=== PATIENT | male | born 1990 | race Hispanic/Latino ===

== ENCOUNTER 2016-07-09 00:17 | Inpatient (IN) | payer MEDICAID ==
[2016-07-09 00:21] VITALS: BMI 59.3
[2016-07-09] MEDS ORDERED: Sodium Chloride 0.9% 1,000 ML IV ONE (00:55)
--- NOTE | 2016-07-09 01:04 | ED PDOC ---
Arrival/HPI - General Chief Complaint: Palpitations Time Seen by Provider: 07/09/16 00:48 Historian: Patient - History of Present Illness Narrative History of Present Illness (Text): 07/09/16 00:56 Rosendo Carlton is a 25 year old male, with a history of hypertension, bronchial asthma, migraine, pneumonia, anxiety, and depression, presents to the emergency department complaining of chest tightness for past few hours. Patient states that he developed chills around 7:30 p.m. yesterday while playing video games and went to sleep after taking Aspirin. However, patient woke up with chest/epigastric pain and notes of 1 episode of non-bloody, non-bilious vomit. Notes that he felt weak and unable to get off the bed after waking up with the symptoms. Denies headache, dizziness, cough, SOB, diarrhea, urinary symptoms, or any other complaints at this time. PMD: Dr. Collier Time/Duration: 4-6 hours Symptom Onset: Gradual Symptom Course: Unchanged Severity Level: Mild Activities at Onset: Light Context: Home Past Medical History - Provider Review Nursing Documentation Reviewed: Yes - Past History Past History: No Previous - Infectious Disease Hx of Infectious Diseases: None - Tetanus Immunization Tetanus Immunization: Unknown - Cardiac Hx Hypertension: Yes - Pulmonary Hx Asthma: Yes Hx Pneumonia: Yes - Neurological Hx Migraine: Yes - HEENT Hx HEENT Disorder: Yes (budd neal syndrome) - Musculoskeletal/Rheumatological Hx Falls: No - Gastrointestinal Hx Gastrointestinal Disorders: Yes (frequently has gas pain after eating) - Psychiatric Hx Anxiety: Yes Hx Depression: Yes Hx Emotional Abuse: No Hx Physical Abuse: No Hx Substance Use: No - Past Surgical History Past Surgical History: No Previous - Surgical History Other/Comment: brain stem surgery - Anesthesia Hx Anesthesia: No Hx Anesthesia Reactions: No Hx Malignant Hyperthermia: No - Suicidal Assessment Feels Threatened In Home Enviroment: No Family/Social History - Physician Review Nursing Documentation Reviewed: Yes Family/Social History: No Known Family HX Smoking Status: Former Smoker Hx Alcohol Use: Yes Frequency of alcohol use: Socially Hx Substance Use: No Hx Substance Use Treatment: No Allergies/Home Meds Allergies/Adverse Reactions: Allergies No Known Allergies Allergy (Verified 07/28/14 01:43) Home Medications: Home Meds Medication Instructions Recorded Confirmed FLUoxetine [Prozac] 1 tab PO DAILY 07/09/16 07/09/16 Hydroxyzine HCl [Hydroxyzine HCl] 1 tab PO Q6H PRN 07/09/16 07/09/16 Losartan/Hydrochlorothiazide 1 tab PO DAILY 07/09/16 07/09/16 [Losartan-Hctz 100-25 mg Tab] Review of Systems - Physician Review All systems were reviewed & negative as marked: Yes - Review of Systems Constitutional: Fatigue. absent: Fevers Eyes: Normal Respiratory: Normal. absent: SOB, Cough, Sputum Cardiovascular: Chest Pain. absent: Palpitations Gastrointestinal: Nausea, Vomiting. absent: Diarrhea Genitourinary Male: Normal. absent: Dysuria Musculoskeletal: Normal Neurological: Normal. absent: Headache, Dizziness Psychiatric: Normal Physical Exam Vital Signs Reviewed: Yes Vital Signs Temp Pulse Resp BP Pulse Ox 07/09/16 05:00 102 H 18 112/53 L 97 07/09/16 04:40 100.6 F H 07/09/16 04:15 100.6 F H 117 H 23 124/60 95 07/09/16 03:24 121 H 15 95/66 L 99 07/09/16 02:57 101.4 F H 121 H 26 H 109/50 L 99 07/09/16 02:50 101.4 F H 07/09/16 02:17 98.4 F 07/09/16 00:34 99.0 F 115 H 22 143/79 99 Temperature: Afebrile Blood Pressure: Normal Pulse: Tachycardic Respiratory Rate: Normal Appearance: Positive for: Well-Appearing, Non-Toxic, Comfortable Pain Distress: None Mental Status: Positive for: Alert and Oriented X 3 - Systems Exam Head: Present: Atraumatic, Normocephalic Pupils: Present: PERRL Extroacular Muscles: Present: EOMI Conjunctiva: Present: Normal Respiratory/Chest: Present: Clear to Auscultation, Good Air Exchange. No: Respiratory Distress, Accessory Muscle Use Cardiovascular: Present: Normal S1, S2, Tachycardic. No: Murmurs Abdomen: Present: Normal Bowel Sounds. No: Tenderness, Distention, Peritoneal Signs Neurological: Present: GCS=15, CN II-XII Intact, Speech Normal, Motor Func Grossly Intact, Normal Sensory Function, Normal Cerebellar Funct Skin: Present: Warm, Dry, Normal Color. No: Rashes Psychiatric: Present: Alert, Oriented x 3, Normal Insight, Normal Concentration Medical Decision Making ED Course and Treatment: 07/09/16 01:06 Impression: A 25 year old male presenting to ed for chest tightness and 1 episode of vomiting prior to arrival. r/o Asthma Exacerbation r/o PNA r/o Viral syndrome Plan: -- EKG -- Labs -- CXR -- Tylenol -- IV fluids -- Blood culture -- Urine culture -- rapid flu -- Urinalysis Progress Notes: 07/09/16 01:08 EKG interpreted by me: Sinus Tachy @ 121 bpm. Normal axis. normal interval. No ST elevations. 07/09/16 02:26 Patient with is tachycardic with a lactate of 3.1. Code Sepsis initiated. 07/09/16 05:02 Repeat lactate is 3.2 with a temp of 100.6F Case discussed with lead medical technologist for admission to the hospital for sepsis. Patient will be evaluated by resident bedside. Paged . 07/09/16 06:25 Dr. Holm came to evaluate patient and would like to upgrade to remote telemetry since patient has a high lactate and tachy and morbidly obese. - Lab Interpretations Lab Results: 07/09/16 01:40 07/09/16 01:40 Lab Results 07/09/16 04:30: pO2 148 H, VBG pH 7.42, VBG pCO2 37.0 L, VBG HCO3 24.0, VBG Total CO2 25.1, VBG O2 Sat (Calc) 99.6 H, VBG Base Excess -0.2 L, VBG Potassium 3.1 L, Sodium 134.0, Chloride 104.0, Glucose 129 H, Lactate 3.2 H, FiO2 21.0, Venous Blood Potassium 3.1 L 07/09/16 02:22: Influenza Typ A,B (EIA) Negative for flu a/b 07/09/16 01:40: WBC 9.7, RBC 4.78, Hgb 14.2, Hct 41.8 L, MCV 87.4, MCH 29.7, MCHC 34.0, RDW 13.5, Plt Count 241, MPV 10.9, Gran % 90.7 H, Lymph % (Auto) 6.6 L, Waller % (Auto) 2.3, Eos % (Auto) 0.3 L, Baso % (Auto) 0.1, Gran # 8.77 H, Lymph # 0.6 L, Waller # 0.2, Eos # 0.0, Baso # 0.01, pO2 41, VBG pH 7.35, VBG pCO2 53.0, VBG HCO3 29.3 H, VBG Total CO2 30.9 H, VBG O2 Sat (Calc) 77.1 H, VBG Base Excess 2.5 H, VBG Potassium 3.8, Sodium 138.0, Chloride 102.0, Glucose 99, Lactate 3.1 H, FiO2 21.0, Potassium 4.0, Carbon Dioxide 31, Anion Gap 13, BUN 14 , Creatinine 0.9, Est GFR ( Amer) > 60, Est GFR (Non-Af Amer) > 60, Random Glucose 101, Calcium 9.4, Phosphorus 3.2, Magnesium 1.6 L, Total Bilirubin 1.2, AST 58, ALT 19, Alkaline Phosphatase 88, Total Protein 8.5 H, Albumin 4.4, Globulin 4.1, Albumin/Globulin Ratio 1.1, Lipase 39, Venous Blood Potassium 3.8 07/09/16 01:19: Urine Color Yellow, Urine Appearance Clear, Urine pH 6.0, Ur Specific Bush 1.015, Urine Protein Negative, Urine Glucose (UA) Negative, Urine Ketones Negative, Urine Blood Negative, Urine Nitrate Negative, Urine Bilirubin Negative, Urine Urobilinogen 0.2, Ur Leukocyte Esterase Negative I have reviewed the lab results: Yes - RAD Interpretation Radiology Orders: 07/09/16 00:55 CHEST PORTABLE [RAD] Stat Lead Medical Technologist: ED Physician - EKG Interpretation Interpreted by ED Physician: Yes Type: 12 lead EKG - Medication Orders Current Medication Orders: Discontinued Medications Acetaminophen (Tylenol 325mg Tab) 975 mg PO ONCE PRN PRN Reason: Fever >100.4 F Last Admin: 07/09/16 02:57 Dose: 975 MG MAR Pain/Vitals Document 07/09/16 02:57 SB (Rec: 07/09/16 02:57 SB [id number]) Vitals Temperature (97.6 F-99.6 F) 101.4 F Temperature Source Rectal Albuterol/Ipratropium (Duoneb 3 Mg/0.5 Mg (3 Ml) Ud) 3 ml IH Q15M KENY Stop: 07/09/16 02:46 Last Admin: 07/09/16 03:24 Dose: 3 ML Azithromycin (Zithromax) 500 mg PO STAT STA PRN Reason: Protocol Stop: 07/09/16 02:26 Last Admin: 07/09/16 02:40 Dose: 500 MG Sodium Chloride (Sodium Chloride 0.9%) 1,000 mls @ 2,000 mls/hr IV .Q30M ONE Stop: 07/09/16 01:24 Last Admin: 07/09/16 02:17 Dose: 2,000 MLS/HR eMAR Start Stop Document 07/09/16 02:17 SB (Rec: 07/09/16 02:17 SB [id number]) Intravenous Solution Start Date 07/09/16 Start Time 02:17 End Date 07/09/16 Ceftriaxone Sodium (Rocephin 1 Gram Ivpb) 100 mls @ 200 mls/hr IVPB STAT STA PRN Reason: Protocol Stop: 07/09/16 02:54 Last Admin: 07/09/16 02:40 Dose: 200 MLS/HR eMAR Start Stop Document 07/09/16 02:40 SB (Rec: 07/09/16 02:40 SB [id number]) Intravenous Solution Start Date 07/09/16 Start Time 02:40 End Date 07/09/16 Famotidine (Pepcid 20mg/50ml Premix) 50 mls @ 100 mls/hr IVPB STAT STA Stop: 07/09/16 03:49 Last Admin: 07/09/16 03:36 Dose: 100 MLS/HR eMAR Start Stop Document 07/09/16 03:36 GMD (Rec: 07/09/16 03:36 GMD [id number]) Intravenous Solution Start Date 07/09/16 Start Time 03:36 End Date 07/09/16 End time 04:06 Total Infusion Time 30 Sodium Chloride (Sodium Chloride 0.9%) 1,000 mls @ 999 mls/hr IV .Q1H1M STA Stop: 07/09/16 05:58 Last Admin: 07/09/16 05:03 Dose: 999 MLS/HR eMAR Start Stop Document 07/09/16 05:03 SB (Rec: 07/09/16 05:03 SB [id number]) Intravenous Solution Start Date 07/09/16 Start Time 05:03 End Date 07/09/16 Ibuprofen (Motrin Tab) 800 mg PO STAT STA Stop: 07/09/16 04:27 Last Admin: 07/09/16 04:40 Dose: 800 MG MAR Pain/Vitals Document 07/09/16 04:40 SB (Rec: 07/09/16 04:40 SB [id number]) Vitals Temperature (97.6 F-99.6 F) 100.6 F Temperature Source Rectal Prednisone (Prednisone Tab) 60 mg PO STAT STA Stop: 07/09/16 04:51 Last Admin: 07/09/16 05:04 Dose: 60 MG - Scribe Statement The provider has reviewed the documentation as recorded by the Yovani Hollingsworth Provider Attestation: All medical record entries made by the Yovani were at my direction and personally dictated by me. I have reviewed the chart and agree that the record accurately reflects my personal performance of the history, physical exam, medical decision making, and the department course for this patient. I have also personally directed, reviewed, and agree with the discharge instructions and disposition. Disposition/Present on Arrival - Present on Arrival Any Indicators Present on Arrival: No History of DVT/PE: No History of Uncontrolled Diabetes: No Urinary Catheter: No History of Decub. Ulcer: No History Surgical Site Infection Following: None - Disposition Have Diagnosis and Disposition been Completed?: Yes Diagnosis: Asthma attack, Dehydration, Lactic acidosis Disposition: HOSPITALIZED Disposition Time: 06:28 Patient Plan: Observation Condition: FAIR
[2016-07-09 02:00] LABS: ADD MANUAL DIFF? NO
[2016-07-09 02:11] LABS: VENOUS BLOOD GAS BASE EXCESS 2.5 mmol/L (0.0-2.0); VENOUS BLOOD PH 7.35 (7.32-7.43)
[2016-07-09] MEDS: Albuterol-Ipratrop 3 mg / 0.5 (3 ml) UD IH SCH ×3 (02:17→03:24)
[2016-07-09 02:20] LABS: BASO # 0.01 K/mm3 (0.0-2.0); BASO % 0.1 % (0.0-3.0); EOS % 0.3 % (1.5-5.0); GRAN # 8.77 (1.4-6.5); GRAN % 90.7 % (50.0-68.0); HEMATOCRIT 41.8 % (42.0-52.0); LYMPH # 0.6 (1.2-3.4); LYMPH % 6.6 % (22.0-35.0); MEAN CELL VOLUME 87.4 fL (80.0-105.0); MEAN CORPUSCULAR HEMOGLOBIN 29.7 pg (25.0-35.0); MEAN PLATELET VOLUME 10.9 fl (7.0-11.0); MONO # 0.2 (0.1-0.6); MONO % 2.3 % (1.0-6.0); PLATELET COUNT 241 10^3/uL (120.0-450.0); RED CELL DISTRIBUTION WIDTH 13.5 % (11.5-14.5); WHITE BLOOD COUNT 9.7 10^3/ul (4.5-11.0)
[2016-07-09 02:22] LABS: ALB/GLOB RATIO 1.1 (1.1-1.8); ALKALINE PHOSPHATASE 88 U/L (38-133); ALT/SGPT 19 U/L (7-56); AST/SGOT 58 U/L (15-59); BILIRUBIN,TOTAL 1.2 mg/dL (0.2-1.3); BLOOD UREA NITROGEN 14 mg/dL (7-21); CALCIUM 9.4 mg/dL (8.4-10.5); CARBON DIOXIDE 31 mmol/L (21-33); CHLORIDE 96 mmol/L (98-107); GFR AFRICAN-AMERICAN > 60; GLUCOSE,RANDOM 101 mg/dL (70-110); LIPASE 39 U/L (23-300); MAGNESIUM 1.6 mg/dL (1.7-2.2); PHOSPHOROUS 3.2 mg/dL (2.5-4.5); SODIUM 136 mmol/L (132-148); TOTAL PROTEIN 8.5 g/dL (5.8-8.3)
[2016-07-09] MEDS ORDERED: cefTRIAXone 1 gm 100 ML IVPB STA (02:25)
[2016-07-09] MEDS ORDERED: Famotidine 20mg/50ml 50 ML IVPB STA (03:20)
[2016-07-09 04:51] LABS: VENOUS BLOOD GAS BASE EXCESS -0.2 mmol/L (0.0-2.0); VENOUS BLOOD PH 7.42 (7.32-7.43)
[2016-07-09] MEDS ORDERED: Sodium Chloride 0.9% 1,000 ML IV STA (04:58)
[2016-07-09 04:59] LABS: URINE BILIRUBIN NEGATIVE (NEGATIVE); URINE BLOOD NEGATIVE (NEGATIVE); URINE GLUCOSE (UA) NEGATIVE (NEGATIVE); URINE KETONE NEGATIVE (NEGATIVE); URINE LEUKOCYTE ESTERASE NEGATIVE Leu/uL (NEGATIVE); URINE PROTEIN NEGATIVE mg/dL (<30 mg/dL); URINE UROBILINOGEN 0.2 E.U./dL (<1 E.U./dL)
[2016-07-09 05:03] LABS: URINE APPEARANCE CLEAR (CLEAR); URINE COLOR YELLOW (YELLOW)
[2016-07-09 06:42] LABS: VENOUS BLOOD GAS BASE EXCESS 0.3 mmol/L (0.0-2.0); VENOUS BLOOD PH 7.42 (7.32-7.43)
--- NOTE | 2016-07-09 07:38 | CP.PCM.HP ---
History of Present Illness - History of Present Illness History of Present Illness: CC: Palpitations, shortness of breath, dizziness HPI: This is a 25 yo M with PMH of Chiari malformation, Spina Bifida, Hypertension, Asthma, Anxiety, and Depression who presents with acute onset palpitations and shortness of breath that awoke him in the AM. Per patient, he began to experience some chills overnight, so he took some Advil and went to sleep. He was abruptly awoken with a sensation of his heart pounding through his chest rapidly, and he became short of breath and dizzy. He also complains of weakness at the time, as he had trouble getting up from a lying position to get to his phone, and states that walking to his phone he felt very unsteady on his feet and felt pre-syncopal. Denies chest pain, focal weakness, vision changes, diarrhea, constipation, lower extremity swelling/erythema/tenderness, syncope, or falls. Admits to one episode of emesis (non-bloody, non-bilious) after arrival to ED. PMH: As above PSH: Chiari malformation surgery (age 7), x2 Spina bifida repair surgeries (1995 , 1996) SHx: Former tobacco user (quit > 1 yr ago, 1 ppd x8 years), Social EtOH, denies illicits/IVDA FHx: Heart disease (cousin) PMD: Dr. Collier Present on Admission - Present on Admission Any Indicators Present on Admission: No History of DVT/PE: No History of Uncontrolled Diabetes: No Review of Systems - Constitutional Constitutional: Chills (self-limited episode ), Malaise, Weakness - EENT Eyes: absent: Blurred Vision, Change in Vision, Spots in Vision, Loss of Vision Ears: Dizziness Nose/Mouth/Throat: absent: Dysphagia, Sore Throat, Neck Pain - Cardiovascular Cardiovascular: Dyspnea, Palpitations. absent: Chest Pain, Pain Radiating to Arm/Neck/Jaw, Syncope Additional comments: near-syncope - Respiratory Respiratory: Cough (dry cough, non-productive), Dyspnea. absent: Hemoptysis, Pain on Inspiration - Gastrointestinal Gastrointestinal: Vomiting (1 episode on arrival to ED, non-bloody non-bilious) . absent: Abdominal Pain, Constipation, Diarrhea, Nausea - Genitourinary Genitourinary: absent: Difficulty Urinating, Dysuria, Flank Pain, Hematuria - Musculoskeletal Musculoskeletal: Back Pain (chronic, unchanged), Muscle Weakness. absent: Numbness - Integumentary Integumentary: absent: Pruritus, Rash - Neurological Neurological: Dizziness, Weakness. absent: Numbness, Focal Weakness, Loss of Vision, Syncope, Vertigo, Other Visual Disturbances Additional comments: near-syncope - Psychiatric Psychiatric: Anxiety, Depression - Endocrine Endocrine: Palpitations. absent: Fatigue Past Patient History - Infectious Disease Hx of Infectious Diseases: None - Tetanus Immunizations Tetanus Immunization: Unknown - Past Social History Smoking Status: Former Smoker - CARDIAC Hx Hypertension: Yes - PULMONARY Hx Asthma: Yes Hx Pneumonia: Yes - NEUROLOGICAL Hx Migraine: Yes - HEENT Hx HEENT Problems: Yes (budd neal syndrome) - MUSCULOSKELETAL/RHEUMATOLOGICAL Hx Falls: No - GASTROINTESTINAL Hx Gastrointestinal Disorders: Yes (frequently has gas pain after eating) - PSYCHIATRIC Hx Anxiety: Yes Hx Depression: Yes Hx Emotional Abuse: No Hx Physical Abuse: No Hx Substance Use: No - SURGICAL HISTORY Other/Comment: brain stem surgery - ANESTHESIA Hx Anesthesia: No Hx Anesthesia Reactions: No Hx Malignant Hyperthermia: No Meds Allergies/Adverse Reactions: Allergies Allergy/AdvReac Type Severity Reaction Status Date / Time No Known Allergies Allergy Verified 07/28/14 01:43 Physical Exam - Constitutional Appears: Well, Non-toxic, No Acute Distress Additional comments: Obese - Head Exam Head Exam: ATRAUMATIC, NORMAL INSPECTION, NORMOCEPHALIC - Eye Exam Eye Exam: EOMI, Normal appearance. absent: Conjunctival injection, Scleral icterus Pupil Exam: absent: Irregular, Unequal - ENT Exam ENT Exam: Mucous Membranes Moist - Neck Exam Neck exam: Negative for: Tenderness - Respiratory Exam Respiratory Exam: Clear to Auscultation Bilateral, NORMAL BREATHING PATTERN. absent: Accessory Muscle Use, Chest Wall Tenderness, Decreased Breath Sounds, Rales, Rhonchi, Wheezes - Cardiovascular Exam Cardiovascular Exam: Tachycardia, REGULAR RHYTHM, +S1, +S2. absent: Bradycardia , Irregular Rhythm, RRR, +S4 Additional comments: rapid rate regular rhythm - GI/Abdominal Exam GI & Abdominal Exam: Normal Bowel Sounds, Soft. absent: Diminished Bowel Sounds , Distended, Firm, Hyperactive Bowel Sounds, Hypoactive Bowel Sounds, Rigid, Tenderness Additional comments: obese, not distended - Extremities Exam Extremities exam: Positive for: normal capillary refill, pedal edema (trace pitting edema bilaterally), pedal pulses present (+1 dorsalis pedis bilaterally) . Negative for: calf tenderness, joint swelling - Back Exam Back exam: absent: CVA tenderness (L), CVA tenderness (R), rash noted, tenderness - Neurological Exam Neurological exam: Alert, Oriented x3 - Psychiatric Exam Psychiatric exam: Normal Affect, Normal Mood - Skin Skin Exam: Dry, Intact, Normal Color, Warm Results - Vital Signs Recent Vital Signs: Last Vital Signs Temp 98.0 F 07/09/16 06:10 Pulse 99 H 07/09/16 06:10 Resp 18 07/09/16 06:10 BP 124/72 07/09/16 06:10 Pulse Ox 97 07/09/16 06:10 - Labs Result Diagrams: 07/09/16 01:40 07/09/16 01:40 Assessment & Plan - Assessment and Plan (Free Text) Assessment: This is a 25 yo M with PMH of Chiari malformation, Spina Bifida, Hypertension, Asthma, Anxiety, and Depression who presents with acute onset palpitations and shortness of breath that awoke him in the AM. He is being treated for possible infectious process vs possible PE. Plan: 1) Palpitations with shortness of breath -Infectious process (URI vs pneumonia) vs 2/2 anxiety vs PE vs vasovagal vs MADELEINE vs asthma attack -No leukocytosis, but tachycardic to 120's, fever up to 100.6F, and suspected infectious process, so meets Sepsis criteria -received Ceftriaxone, Zithromax, Prednisone, and Duoneb tx in ED -UA unremarkable -LE duplex ordered to rule out DVT; habitus makes patient not amenable to CTA to rule out PE -Lactate 3.2 on admission, 3.3 on repeat VBG -Blood cultures ordered, Procal ordered -CXR obtained, suboptimal due to patient's habitus, but no felisha infiltrate notable -EKG sinus tachy at 121, otherwise normal -Elevated serum bicarb, and bull neck with morbid obesity suggestive of possible MADELEINE, patient already scheduled for outpt sleep study -Ceftriaxone and Doxycycline ordered 2) Hypomagnesia -Mag of 1.6 on admit, will replete Dispo: Remote Telemetry obs for possible infectious process vs PE, pending LE duplex and cultures FEN: heart-healthy diet, NS 100cc/hr Access: Peripheral IV Consults: N/A Ppx: Protonix for GI, SCDs for DVT Patient seen, reviewed, and discussed with attending, Dr. Holm. - Date & Time Date: 07/09/16 Time: 08:14 Decision To Admit - Pt Status Changed To: Hospital Disposition Of: Observation - . Bed Request Type: Remote Telemetry
[2016-07-09] MEDS ORDERED: Magnesium Sulfate 2 GM in Sodium Chloride 0.9% 100 ML IVPB ONE (08:11)
--- NOTE | 2016-07-09 09:06 | RAD ---
HISTORY: Sepsis Patient COMPARISON: 09/04/2011 FINDINGS: LUNGS: No active pulmonary disease. PLEURA: No significant pleural effusion identified, no pneumothorax apparent. CARDIOVASCULAR: Normal. OSSEOUS STRUCTURES: No significant abnormalities. VISUALIZED UPPER ABDOMEN: Normal. OTHER FINDINGS: None. IMPRESSION: No active disease.
[2016-07-09] MEDS: Sodium Chloride 0.9% 1,000 ML IV SCH ×2 (10:15→20:00)
--- NOTE | 2016-07-09 10:32 | CARD ---
APPROVED REPORT EKG Measurement Heart [id number] <Conclusion> Sinus tachycardia NSSTW changes
[2016-07-09 11:08] LABS: VENOUS BLOOD GAS BASE EXCESS 0.8 mmol/L (0.0-2.0); VENOUS BLOOD PH 7.37 (7.32-7.43)
[2016-07-09] MEDS ORDERED: Albuterol-Ipratrop 3 mg / 0.5 (3 ml) UD IH PRN (11:47)
--- NOTE | 2016-07-09 13:25 | CP.PCM.CON ---
History of Present Illness - History of Present Illness History of Present Illness: 25 year old male with PMH of morbid obesity with BMI 59, Chiari malformation in the spine with spina bifida S/P surgeries at 5-7 years of age of the patient, HTN, asthma, anxiety disorder, history of depression came in to the ED after he suddenly developed subjective fever and chills about 6 hours prior to ED presentation. At that time he was also having teeth-chattering. He had generalized weakness as well but no muscles or joint aches. He was also experiencing a twisting sensation in his abdomen (epigastric and left side of the abdomen) which was associated with nausea and one episode of non-bloody vomiting in the ED. He denies sore throat, no rhinorrhea, no headache, no dizziness or lightheadedness. He fell asleep on his couch and when he woke up he had chest palpitations and he still felt the "twisting sensation" in his abdomen, which made him go to the ER. He denies eating anything out of the ordinary, no diarrhea but he did complain of some blood in his stool since 3 days ago, no dysuria, no hematuria. He was recently diagnosed in a clinic with a sinus infection and was prescribed unrecalled antibiotics about 10 days ago which he took for about 5 days. In the ED, his lactate was elevated and had a Tmax of 101.4 F. Infectious diseases consult is requested to further evaluate and manage. Social history: as per patient, he used to smoke a pack of cigarettes per day for about 8-9 years but quit a year ago, occasionally takes alcoholic beverages , denies illicit drug use; lives at home with his family, no recent travel outside of [place] in the past 3 months, no known ill contacts Review of Systems - Review of Systems All systems: reviewed and no additional remarkable complaints except (as per HPI ) Past Patient History - Infectious Disease Hx of Infectious Diseases: None - Tetanus Immunizations Tetanus Immunization: Unknown - Past Social History Smoking Status: Former Smoker - CARDIAC Hx Hypertension: Yes - PULMONARY Hx Asthma: Yes Hx Pneumonia: Yes - NEUROLOGICAL Hx Migraine: Yes - HEENT Hx HEENT Problems: Yes (budd neal syndrome) - MUSCULOSKELETAL/RHEUMATOLOGICAL Hx Falls: No - GASTROINTESTINAL Hx Gastrointestinal Disorders: Yes (frequently has gas pain after eating) - PSYCHIATRIC Hx Anxiety: Yes Hx Depression: Yes Hx Emotional Abuse: No Hx Physical Abuse: No - SURGICAL HISTORY Other/Comment: brain stem surgery - ANESTHESIA Hx Anesthesia: No Hx Anesthesia Reactions: No Hx Malignant Hyperthermia: No Meds Allergies/Adverse Reactions: Allergies Allergy/AdvReac Type Severity Reaction Status Date / Time No Known Allergies Allergy Verified 07/28/14 01:43 - Medications Medications: Current Medications Doxycycline Hyclate (Doryx) 100 mg PO Q12 KENY PRN Reason: Protocol Ceftriaxone Sodium (Rocephin 2 Gm Ivpb) 100 mls @ 100 mls/hr IVPB DAILY KENY PRN Reason: Protocol Magnesium Sulfate 2 gm/ Sodium (Chloride) 104 mls @ 102 mls/hr IVPB ONCE ONE Stop: 07/09/16 09:12 Sodium Chloride (Sodium Chloride 0.9%) 1,000 mls @ 100 mls/hr IV .Q10H KENY Pantoprazole Sodium (Protonix Ec Tab) 40 mg PO 0730,1630 [facility] Physical Exam - Constitutional Appears: Non-toxic, No Acute Distress - Head Exam Head Exam: NORMAL INSPECTION - ENT Exam ENT Exam: Mucous Membranes Moist, Normal Oropharynx - Neck Exam Neck exam: Negative for: Lymphadenopathy, Meningismus - Respiratory Exam Respiratory Exam: Decreased Breath Sounds. absent: Rales, Rhonchi - Cardiovascular Exam Cardiovascular Exam: +S1, +S2 - GI/Abdominal Exam GI & Abdominal Exam: Soft, Tenderness (mild, left side and epigastric area without guarding, no rebound tenderness, no rigidity) Results - Vital Signs Recent Vital Signs: Last Vital Signs Temp 97.7 F 07/09/16 08:39 Pulse 99 H 07/09/16 08:39 Resp 18 07/09/16 08:39 BP 124/73 07/09/16 08:39 Pulse Ox 99 07/09/16 08:15 - Labs Result Diagrams: 07/09/16 01:40 07/09/16 01:40 Labs: Laboratory Results - last 24 hr 07/09/16 06:12 pO2 159 H VBG pH 7.42 VBG pCO2 38.0 L VBG HCO3 24.6 VBG Total CO2 25.8 VBG O2 Sat (Calc) 99.9 H VBG Base Excess 0.3 VBG Potassium 3.3 L Sodium 135.0 Chloride 104.0 Glucose 117 H Lactate 2.8 H FiO2 21.0 Venous Blood Potassium 3.3 L Assessment & Plan - Assessment and Plan (Free Text) Plan: Assessment Systemic Inflammatory Response Syndrome (fever and tachycardia), R/O sepsis from intra-abdominal infection R/O colitis R/O volvulus morbid obesity with BMI 59 Chiari malformation in the spine with spina bifida S/P surgeries at 5-7 years of age of the patient HTN asthma anxiety disorder history of depression Plan Started patient on Zosyn (since the patient was recently on antibiotics) pending blood and urine cx; PCT is elevated; rapid Influenza is negative awaiting CXR PA-L (one done in the ED was only portable and difficult to interpret, although the patient only has dry intermittent cough) - added Doxycycline Patient is unable to fit into the CT scan machine - will do ultrasound of abdomen and abdominal xray and will follow up results Will follow clinically
--- NOTE | 2016-07-09 15:12 | US ---
HISTORY: rule out volvulus, R/O ischemic colitis COMPARISON: None. TECHNIQUE: Grayscale imaging was performed. Examination is limited due to patient body habitus. FINDINGS: LIVER: Measures 21.4 cm. There is diffuse increased echogenicity of the liver parenchyma. No mass. No intrahepatic bile duct dilatation. GALLBLADDER: Unremarkable. No gallstones. COMMON BILE DUCT: Measures 6 mm. No stones. No dilatation. PANCREAS: Unremarkable as visualized. No mass. No ductal dilatation. RIGHT KIDNEY: Measures 13.5cm. Normal echogenicity. No calculus, mass, or hydronephrosis. LEFT KIDNEY: Measures 14.4cm. Normal echogenicity. No calculus, mass, or hydronephrosis. SPLEEN: There is borderline splenomegaly. No mass. AORTA: No aneurysmal dilatation. IVC: Unremarkable. OTHER FINDINGS: None. IMPRESSION: Limited examination due to patient body habitus. Moderate hepatomegaly and mild splenomegaly. Diffuse increased echogenicity in the liver may reflect hepatic steatosis however parenchymal infectious/ inflammatory etiologies cannot be entirely excluded. Clinical and laboratory correlation is advised.
--- NOTE | 2016-07-09 15:42 | RAD ---
HISTORY: ABDOMINAL PAIN COMPARISON: No prior. FINDINGS: BOWEL: Normal. No obstruction. No free air. BONES: Normal. OTHER FINDINGS: None. IMPRESSION: No active disease.
--- NOTE | 2016-07-09 16:37 | US ---
HISTORY: Leg pain and swelling. Evaluate for DVT PHYSICIAN(S): Giovanni Yu MD. TECHNIQUE: Duplex sonography and color-flow Doppler with graded compression were used to evaluate the deep venous systems of both lower extremities. FINDINGS: The visualized deep venous systems of both lower extremities are sonographically normal and compressible. Normal wave forms and augmentation are seen. There is no sonographic evidence for deep venous thrombosis in the visualized segments of both lower extremities. IMPRESSION: No sonographic evidence for deep venous thrombosis in the visualized segments of both lower extremities.
[2016-07-09] MEDS: Pantoprazole 40 mg EC Tab PO SCH (17:28)
[2016-07-09] MEDS: Piperacillin/Tazobact 3.375 gm 100 ML IVPB SCH ×2 (17:29)
--- NOTE | 2016-07-09 18:52 | CP.PCM.CON ---
History of Present Illness - History of Present Illness History of Present Illness: 25 y/o M w/ acute SOB, palpitations, chills and chest pain yesterday while at home. S/P nebulizers, abx and oxygen patient feeling better. upon further questioning the patient has been dealing with panic attacks and asthma and last night felt nothing like that. Also he mentions that since his spina bifida surgery many years ago , he noticed 4 months ago that he had a draining sinus at his lower back with PUS. It seems that he has presented with signs of SIRS and sepsis. Review of Systems - Constitutional Constitutional: Fatigue, Fever, Malaise, Night Sweats, Weight Gain - EENT Eyes: As Per HPI Ears: As Per HPI Nose/Mouth/Throat: As Per HPI - Cardiovascular Cardiovascular: Diaphoresis - Respiratory Respiratory: As Per HPI, Snoring - Gastrointestinal Gastrointestinal: Abdominal Pain, Bloating - Genitourinary Genitourinary: As Per HPI - Neurological Neurological: Behavioral Changes (lower ext pain, lower back pain ), Disequilibrium, Dizziness, Headaches, Syncope, Tingling Past Patient History - Infectious Disease Hx of Infectious Diseases: None - Tetanus Immunizations Tetanus Immunization: Unknown - Past Social History Smoking Status: Former Smoker - CARDIAC Hx Hypertension: Yes - PULMONARY Hx Asthma: Yes Hx Pneumonia: Yes - NEUROLOGICAL Hx Migraine: Yes - HEENT Hx HEENT Problems: Yes (budd neal syndrome) - MUSCULOSKELETAL/RHEUMATOLOGICAL Hx Falls: No - GASTROINTESTINAL Hx Gastrointestinal Disorders: Yes (frequently has gas pain after eating) - PSYCHIATRIC Hx Anxiety: Yes Hx Depression: Yes Hx Emotional Abuse: No Hx Physical Abuse: No - SURGICAL HISTORY Other/Comment: brain stem surgery - ANESTHESIA Hx Anesthesia: No Hx Anesthesia Reactions: No Hx Malignant Hyperthermia: No Meds Allergies/Adverse Reactions: Allergies Allergy/AdvReac Type Severity Reaction Status Date / Time No Known Allergies Allergy Verified 07/28/14 01:43 - Medications Medications: Current Medications Albuterol/Ipratropium (Duoneb 3 Mg/0.5 Mg (3 Ml) Ud) 3 ml IH Q2H PRN PRN Reason: Shortness of Breath Doxycycline Hyclate (Doryx) 100 mg PO Q12 [facility]ENY PRN Reason: Protocol Last Admin: 07/09/16 10:14 Dose: 100 mg Fluoxetine HCl (Prozac) 20 mg PO DAILY [facility] Hydrochlorothiazide (Hydrodiuril) 25 mg PO DAILY [facility] Hydroxyzine HCl (Atarax) 25 mg PO Q6H PRN PRN Reason: Psychosis Sodium Chloride (Sodium Chloride 0.9%) 1,000 mls @ 100 mls/hr IV .Q10H [facility] Last Admin: 07/09/16 10:15 Dose: 100 mls/hr Cefepime HCl (Maxipime 1gm) 100 mls @ 100 mls/hr IVPB Q8 [facility]ENY PRN Reason: Protocol Vancomycin HCl (Vancomycin 1gm) 250 mls @ 167 mls/hr IVPB Q12H [facility] PRN Reason: Protocol Losartan Potassium (Cozaar) 100 mg PO DAILY [facility] Pantoprazole Sodium (Protonix Ec Tab) 40 mg PO 0730,1630 [facility] Last Admin: 07/09/16 17:28 Dose: 40 mg Physical Exam - Eye Exam Eye Exam: EOMI, Normal appearance - ENT Exam ENT Exam: Mucous Membranes Moist, Normal Exam - Respiratory Exam Respiratory Exam: Clear to Auscultation Bilateral, NORMAL BREATHING PATTERN - Cardiovascular Exam Cardiovascular Exam: REGULAR RHYTHM - GI/Abdominal Exam GI & Abdominal Exam: Normal Bowel Sounds - Rectal Exam Rectal Exam: NORMAL INSPECTION - Back Exam Back exam: paraspinal tenderness (lower bacl draining sinus with PUS ) - Neurological Exam Neurological exam: Normal Gait, Oriented x3 - Psychiatric Exam Psychiatric exam: Normal Affect Results - Vital Signs Recent Vital Signs: Last Vital Signs Temp 97.7 F 07/09/16 08:39 Pulse 99 H 07/09/16 08:39 Resp 18 07/09/16 08:39 BP 124/73 07/09/16 08:39 Pulse Ox 99 07/09/16 08:15 - Labs Result Diagrams: 07/09/16 01:40 07/09/16 01:40 Labs: Laboratory Results - last 24 hr 07/09/16 07/09/16 07/09/16 06:12 07:00 10:45 pO2 159 H 78 H VBG pH 7.42 7.37 VBG pCO2 38.0 L 46.0 VBG HCO3 24.6 26.6 VBG Total CO2 25.8 28.0 VBG O2 Sat (Calc) 99.9 H 97.6 H VBG Base Excess 0.3 0.8 VBG Potassium 3.3 L 3.8 Sodium 135.0 140.0 Chloride 104.0 105.0 Glucose 117 H 156 H Lactate 2.8 H 3.5 H FiO2 21.0 21.0 Procalcitonin 6.47 H TSH 3rd Generation 0.84 Venous Blood Potassium 3.3 L 3.8 Assessment & Plan - Assessment and Plan (Free Text) Assessment: 25 y/o M w/ SIRS sepsis Likely source lower back with questionable pus filled pocket/ cyst ? At the site of previous surgery or new pocket of infection Surgery consut placed, patient is too large for CT or MRI, Possible U/S of the lower back can be done? May need spine surgery/ NSG to evaluate ? Would increase abx to Cefepime and vancomycin , blood cx, urine cx Pulm standpoint- CTAB , no nebs needed, albuterol rescue inhaler if need ( used it 2x in last year). will follow
[2016-07-09] MEDS: Cefepime 1gm in NS 100ml 100 ML IVPB SCH (21:58)
[2016-07-10] MEDS: Vancomycin 1gm in NS 250ml 250 ML IVPB SCH ×2 (04:53→17:19)
[2016-07-10] MEDS: Sodium Chloride 0.9% 1,000 ML IV SCH ×2 (04:54→17:16)
[2016-07-10] MEDS: Cefepime 1gm in NS 100ml 100 ML IVPB SCH ×3 (06:23→21:16)
--- NOTE | 2016-07-10 09:14 | CARD ---
APPROVED REPORT EXAM: Two-dimensional and M-mode echocardiogram with Doppler and color Doppler. Other Information Quality : PoorRhythm : INDICATION Dyspnea 2D DIMENSIONS Left Atrium (2D)4.0 (1.6-4.0cm)IVSd1.3 (0.7-1.1cm) LVDd5.2 (3.9-5.9cm)PWd1.3 (0.7-1.1cm) LVDs3.2 (2.5-4.0cm)FS (%) 38.5 % LVEF (%)68.0 (>50%) M-Mode DIMENSIONS Aortic Root3.00 (2.2-3.7cm)Aortic Cusp Exc.2.10 (1.5-2.0cm) Aortic Valve AoV Peak Syigiyqr382.0cm/Nellie Peak GR.12mmHg Mitral Valve MV E Cqjbtwje70.9cm/sMV A Efddqune91.0cm/sE/A ratio1.1 TDI E/Lateral E'0.0E/Medial E'0.0 Tricuspid Valve TR Peak Dyqdrlph139xt/sRAP [id number] Peak Gr.27mmHg [id number] LEFT VENTRICLE The left ventricle is normal size. There is normal left ventricular wall thickness. The left ventricular function is normal. The left ventricular ejection fraction is within the normal range. There is normal LV segmental wall motion. RIGHT VENTRICLE The right ventricle is not well visualized. ATRIA The left atrium size is normal. The right atrium is not well visualized. AORTIC VALVE The aortic valve is not well visualizedbut probably normal. MITRAL VALVE The mitral valve is normal in structure. TRICUSPID VALVE The tricuspid valve is normal in structure. There is trace to mild tricuspid regurgitation. PULMONIC VALVE The pulmonic valve is not well visualized. GREAT VESSELS The aortic root is normal in size. PERICARDIAL EFFUSION There is no pericardial effusion. <Conclusion> This is a very limited study. The left ventricle is normal size. There is normal left ventricular wall thickness. The left ventricular function is normal. The aortic valve is not well visualizedbut probably normal.
[2016-07-10] MEDS: Pantoprazole 40 mg EC Tab PO SCH ×2 (10:06→17:16)
--- NOTE | 2016-07-10 10:58 | RAD ---
HISTORY: shortness of breath, coughs COMPARISON: Chest x-ray performed 09/04/11 TECHNIQUE: Chest PA and lateral FINDINGS: Examination limited by habitus. LUNGS: No focal consolidation. Please note that chest x-ray has limited sensitivity for the detection of pulmonary masses. PLEURA: No significant pleural effusion identified. No definite pneumothorax . CARDIOVASCULAR: The cardiomediastinal silhouette appears within normal limits of size. OSSEOUS STRUCTURES: No acute osseous abnormality identified. VISUALIZED UPPER ABDOMEN: Unremarkable. OTHER FINDINGS: None. IMPRESSION: No focal consolidation, significant pleural effusion, or definite pneumothorax identified.
--- NOTE | 2016-07-10 11:59 | PN ---
DATE: 07/10/2016 The patient seen earlier today in room 378, bed 1. He states he is feeling much better. His fevers and chills have resolved. PHYSICAL EXAMINATION: VITAL SIGNS: Temperature is 97, the T-max is 101.4, blood pressure is 120/70, respiratory rate of 16 . HEENT: Unremarkable. NECK: Supple. LUNGS: Have decreased breath sounds. HEART: Normal S1, S2. ABDOMEN: Soft and nontender, difficult to fully examine this patient's abdomen because of his enormo us size. LABORATORY EXAMINATION: Reveals a white count of 9.7, hemoglobin of 14, platelets of 241. Chemistri es reveal the patient's procalcitonin is 6.47 and LFTs are normal. Urinalysis is unremarkable. The patient's HIV is negative. Influenza is negative. Microbiology reveals blood and urine cultures are negative. The patient had abdominal x-ray. There is no active disease and the patient also had an abdominal ultrasound, hepatic steatosis. His gallbladder is unremarkable. No stones. Common bile d uct measures at 6. ASSESSMENT AND PLAN: A 25-year-old male with morbid obesity, body mass index of 59, Chiari malformat ion in the spine and spina bifida surgeries 5-7 years ago and hypertension, asthma and anxiety disord er, depression with super morbid obesity with a body mass index of 59, presenting with fevers and tac hycardia with systemic inflammatory response syndrome, etiology of which is not entirely clear. Mary use of his large size, unable to do a CAT scan for further imaging. We will check on the culture res ults. Currently, the patient is on doxycycline and cefepime. Case discussed with Dr. Nicole who was concerned about soft tissue infection of the back. Dr. White's consultation is also reviewed. We rica l follow closely with you. Tico Etienne MD cc: [phone] TT: 07/10/2016 11:59:00 Confirmation # [id number] Dictation # [id number] tn
--- NOTE | 2016-07-10 13:28 | CP.PCM.PN ---
<Anuj Bianchi - Last Filed: 07/10/16 20:59> Subjective - Date & Time of Evaluation Date of Evaluation: 07/10/16 Time of Evaluation: 08:05 - Subjective Subjective: Patient was seen and examined. No acute events overnight. Patient was standing in by his bed at the time of examination because standing alleviates his pain better than sitting. Patient's abdominal discomfort has resolved. Patient reports having a small skin lesion draining clear fluid started 4 months ago. It is located at the top of his intergluteal cleft. It never caused patient any pain or discomfort, therefore he never seek for medical attention. Denies headache, weakness, fever, chills, shortness of breath, chest pain, abdominal, nausea, vomiting, or urinary symptoms. Objective - Vital Signs/Intake and Output Vital Signs (last 24 hours): Temp Pulse Resp BP Pulse Ox 97.5 F L 73 18 136/81 97 07/10/16 06:00 07/10/16 06:00 07/10/16 06:00 07/10/16 06:00 07/10/16 06:00 - Medications Medications: Current Medications Albuterol/Ipratropium (Duoneb 3 Mg/0.5 Mg (3 Ml) Ud) 3 ml IH Q2H PRN PRN Reason: Shortness of Breath Doxycycline Hyclate (Doryx) 100 mg PO Q12 [facility] PRN Reason: Protocol Last Admin: 07/10/16 10:04 Dose: 100 mg Fluoxetine HCl (Prozac) 20 mg PO DAILY [facility] Last Admin: 07/10/16 10:06 Dose: 20 mg Hydrochlorothiazide (Hydrodiuril) 25 mg PO DAILY [facility] Last Admin: 07/10/16 10:05 Dose: 25 mg Hydroxyzine HCl (Atarax) 25 mg PO Q6H PRN PRN Reason: Psychosis Last Admin: 07/10/16 00:35 Dose: 25 mg Sodium Chloride (Sodium Chloride 0.9%) 1,000 mls @ 100 mls/hr IV .Q10H [facility] Last Admin: 07/10/16 04:54 Dose: 100 mls/hr Cefepime HCl (Maxipime 1gm) 100 mls @ 100 mls/hr IVPB Q8 [facility] PRN Reason: Protocol Last Admin: 07/10/16 06:23 Dose: 100 mls/hr Vancomycin HCl (Vancomycin 1gm) 250 mls @ 167 mls/hr IVPB Q12H [facility] PRN Reason: Protocol Last Admin: 07/10/16 04:53 Dose: 167 mls/hr Losartan Potassium (Cozaar) 100 mg PO DAILY [facility] Last Admin: 07/10/16 10:04 Dose: 100 mg Pantoprazole Sodium (Protonix Ec Tab) 40 mg PO 0730,1630 [facility] Last Admin: 07/10/16 10:06 Dose: 40 mg Tramadol HCl (Ultram) 50 mg PO Q8H PRN PRN Reason: Pain, moderate (4-7) Last Admin: 07/10/16 10:08 Dose: 50 mg - Constitutional Appears: Non-toxic, No Acute Distress - Head Exam Head Exam: ATRAUMATIC, NORMAL INSPECTION, NORMOCEPHALIC - Eye Exam Eye Exam: EOMI, Normal appearance - ENT Exam ENT Exam: Mucous Membranes Moist - Neck Exam Neck Exam: Normal Inspection - Respiratory Exam Respiratory Exam: Clear to Ausculation Bilateral, NORMAL BREATHING PATTERN. absent: Wheezes, Respiratory Distress - Cardiovascular Exam Cardiovascular Exam: REGULAR RHYTHM, RRR, +S1, +S2. absent: Murmur - GI/Abdominal Exam GI & Abdominal Exam: Soft, Normal Bowel Sounds. absent: Tenderness - Extremities Exam Extremities Exam: Normal Capillary Refill. absent: Joint Swelling, Tenderness - Neurological Exam Neurological Exam: Alert, Awake, Oriented x3 Additional comments: Spina bifida surgery scar located at lower lumbar region, no signs of infection. Small lesion draining clear fluid located at the top of interglueal cleft consistent with diagnosis of pilonidal cyst, not painful on palpation. - Psychiatric Exam Psychiatric exam: Normal Affect, Normal Mood - Skin Skin Exam: Dry, Intact, Normal Color, Warm Assessment and Plan - Assessment and Plan (Free Text) Assessment: 25 yo M with PMH of Chiari malformation, Spina Bifida, Hypertension, Asthma, Anxiety, and Depression who presents with acute onset palpitations and shortness of breath that awoke him in the AM. Patient was found to have a pilonidal cyst Palpitations with shortness of breath -Infectious process (URI vs pneumonia) vs 2/2 anxiety vs PE vs vasovagal vs MADELEINE vs asthma attack -No leukocytosis, but tachycardic to 120's, fever up to 100.6F, and suspected infectious process, so meets Sepsis criteria -UA unremarkable -Echocardiogram unremarkable -LE duplex showed no evidence of DVT; habitus makes patient not amenable to CTA to rule out PE -Lactate 3.2 on admission, lastest repeat was 2.1 -Blood and urine cultures negative after 24 hours -Elevated Procal at 6.47 -CXR obtained, suboptimal due to patient's habitus, but no felisha infiltrate notable -PA/LA CXR showed no focal consolidation, significant pleural effusion, or definite pneumothorax identified -Elevated serum bicarb, and bull neck with morbid obesity suggestive of possible MADELEINE, patient already scheduled for outpt sleep study -No leukocytosis, afebrile today -Continue vancomycin, cefepime and Doxycycline -Duoneb prn -Follow orthostatics Pilonidal cyst -Draining serous fluid, non tender -Follow up surgery recommendations -Follow up wound culture -Monitor CBC and vitals Hypomagnesia -Mag of 1.6 on admit, will replete -Follow up am lab Anxiety/Depression -continue home Prozac and hydroxyzine HTN -continue home HCTZ-Losartan Prophylactic measures -Protonix for GI -SCDs for DVT <Maribeth Nicole - Last Filed: 07/11/16 14:42> Objective - Vital Signs/Intake and Output Vital Signs (last 24 hours): Temp Pulse Resp BP Pulse Ox 97.5 F L 69 18 117/64 95 07/11/16 06:00 07/11/16 06:00 07/11/16 06:00 07/11/16 06:00 07/11/16 06:00 Intake and Output: 07/11/16 07/11/16 06:59 18:59 Intake Total 1835 Output Total 500 Balance 1335 - Medications Medications: Current Medications Albuterol/Ipratropium (Duoneb 3 Mg/0.5 Mg (3 Ml) Ud) 3 ml IH Q2H PRN PRN Reason: Shortness of Breath Amoxicillin/Clavulanate Potassium (Augmentin 875 Mg-125 Mg Tab) 1 tab PO Q12 KENY PRN Reason: Protocol Stop: 07/20/16 22:01 Doxycycline Hyclate (Doryx) 100 mg PO Q12 [facility]ENY PRN Reason: Protocol Last Admin: 07/11/16 10:36 Dose: 100 mg Fluoxetine HCl (Prozac) 20 mg PO DAILY [facility] Last Admin: 07/11/16 10:36 Dose: 20 mg Hydrochlorothiazide (Hydrodiuril) 25 mg PO DAILY [facility] Last Admin: 07/11/16 10:44 Dose: 25 mg Hydroxyzine HCl (Atarax) 25 mg PO Q6H PRN PRN Reason: Psychosis Last Admin: 07/10/16 00:35 Dose: 25 mg Sodium Chloride (Sodium Chloride 0.9%) 1,000 mls @ 100 mls/hr IV .Q10H [facility] Last Admin: 07/11/16 03:35 Dose: 100 mls/hr Losartan Potassium (Cozaar) 100 mg PO DAILY [facility] Last Admin: 07/11/16 10:44 Dose: 100 mg Pantoprazole Sodium (Protonix Ec Tab) 40 mg PO 0730,1630 [facility] Last Admin: 07/11/16 08:20 Dose: 40 mg Tramadol HCl (Ultram) 50 mg PO Q4H PRN PRN Reason: Pain, moderate (4-7) Last Admin: 07/10/16 22:59 Dose: 50 mg - Labs Labs: 07/11/16 06:20 07/11/16 06:20 Attending/Attestation - Attestation I have personally seen and examined this patient.: Yes I have fully participated in the care of the patient.: Yes I have reviewed all pertinent clinical information, including history, physical exam and plan: Yes Notes (Text): 07/11/16 14:37 25 year old male with past medical history of Chiari malformation, spina bifida surgery, hypertension, anxiety and asthma who presented with acute episode of palpitations and shortness of breath. He was found to have fever and admitted to rule out sepsis. CXR is negative as is UA. Cultures are negative to date. Echocardiogram and LE dopplers are negative. Procalcitonin was elevated. ID evaluation was appreciated and patient is on iv antibiotics. Upon further questioning patient admitted to recent discharge from his lower back. Concern was for possible soft tissue infection close to site of his spina bifida surgery. On examination he does have a pilonidal cyst. Surgery and NS evaluation were requested. Wound culture is ordered. Maribeth Nicole MD Hospitalist.
[2016-07-10 13:56] LABS: ADD MANUAL DIFF? NO
[2016-07-10 13:58] LABS: BASO # 0.01 K/mm3 (0.0-2.0); BASO % 0.1 % (0.0-3.0); EOS # 0.1 (0.0-0.7); EOS % 1.8 % (1.5-5.0); GRAN # 3.59 (1.4-6.5); HEMATOCRIT 35.8 % (42.0-52.0); LYMPH # 2.6 (1.2-3.4); LYMPH % 37.7 % (22.0-35.0); MEAN CORPUSCULAR HEMOGLOBIN 29.2 pg (25.0-35.0); MEAN CORPUSCULAR HGB CONC 33.2 g/dl (31.0-37.0); MEAN PLATELET VOLUME 10.2 fl (7.0-11.0); MONO # 0.5 (0.1-0.6); MONO % 7.4 % (1.0-6.0); PLATELET COUNT 240 10^3/uL (120.0-450.0); RED CELL DISTRIBUTION WIDTH 13.8 % (11.5-14.5); WHITE BLOOD COUNT 6.8 10^3/ul (4.5-11.0)
[2016-07-10 14:06] LABS: ALB/GLOB RATIO 1.1 (1.1-1.8); ALKALINE PHOSPHATASE 53 U/L (38-133); ALT/SGPT 29 U/L (7-56); AST/SGOT 31 U/L (15-59); BILIRUBIN,TOTAL 0.7 mg/dL (0.2-1.3); BLOOD UREA NITROGEN 11 mg/dL (7-21); CALCIUM 8.3 mg/dL (8.4-10.5); CARBON DIOXIDE 28 mmol/L (21-33); CHLORIDE 106 mmol/L (98-107); GFR AFRICAN-AMERICAN > 60; GLUCOSE,RANDOM 112 mg/dL (70-110); POTASSIUM 3.9 mmol/L (3.6-5.0); SODIUM 140 mmol/L (132-148); TOTAL PROTEIN 7.4 g/dL (5.8-8.3)
--- NOTE | 2016-07-10 16:27 | CON ---
DATE: 07/10/2016 I am asked to see the patient at the request of the ICU doctor. The patient is a 89 pounder who has not been forthcoming about symptoms to his family or possibly to himself. He had a Chiari malformat ion that was treated as a child and also had a spina bifida with operation many years ago. It seems that area started to drain serous fluid. In addition, there is an area in the midline with multiple puncta consistent with a pilonidal cyst. At the moment, it does not seem to be infected. I asked fo r neurosurgical consultation as I am unable to access the spine. He has not been able to get a CAT s can because of his weight. We will follow peripherally. Nando Loving MD cc: [phone] TT: 07/10/2016 16:26:44 Confirmation # [id number] Dictation # [id number] tn
--- NOTE | 2016-07-10 18:05 | CP.PCM.PN ---
Subjective - Date & Time of Evaluation Date of Evaluation: 07/10/16 Time of Evaluation: 18:03 - Subjective Subjective: 25 yo obeese male with spina bifida repair as admitted with panic attack has 4 mo hx of drainage from back PT has appointment with Dr Henriquez an neurosurgeon for next week Suggest he continues with that as this is a chronic condition, and he wishes to f/u with that MD Objective - Vital Signs/Intake and Output Vital Signs (last 24 hours): Temp Pulse Resp BP Pulse Ox 98.0 F 80 19 108/58 L 96 07/10/16 17:16 07/10/16 17:16 07/10/16 17:16 07/10/16 17:16 07/10/16 17:16 - Medications Medications: Current Medications Albuterol/Ipratropium (Duoneb 3 Mg/0.5 Mg (3 Ml) Ud) 3 ml IH Q2H PRN PRN Reason: Shortness of Breath Doxycycline Hyclate (Doryx) 100 mg PO Q12 [facility]ENY PRN Reason: Protocol Last Admin: 07/10/16 10:04 Dose: 100 mg Fluoxetine HCl (Prozac) 20 mg PO DAILY [facility] Last Admin: 07/10/16 10:06 Dose: 20 mg Hydrochlorothiazide (Hydrodiuril) 25 mg PO DAILY [facility] Last Admin: 07/10/16 10:05 Dose: 25 mg Hydroxyzine HCl (Atarax) 25 mg PO Q6H PRN PRN Reason: Psychosis Last Admin: 07/10/16 00:35 Dose: 25 mg Sodium Chloride (Sodium Chloride 0.9%) 1,000 mls @ 100 mls/hr IV .Q10H [facility] Last Admin: 07/10/16 17:16 Dose: 100 mls/hr Cefepime HCl (Maxipime 1gm) 100 mls @ 100 mls/hr IVPB Q8 [facility] PRN Reason: Protocol Last Admin: 07/10/16 13:52 Dose: 100 mls/hr Vancomycin HCl (Vancomycin 1gm) 250 mls @ 167 mls/hr IVPB Q12H [facility] PRN Reason: Protocol Last Admin: 07/10/16 17:19 Dose: 167 mls/hr Losartan Potassium (Cozaar) 100 mg PO DAILY [facility] Last Admin: 07/10/16 10:04 Dose: 100 mg Pantoprazole Sodium (Protonix Ec Tab) 40 mg PO 0730,1630 [facility] Last Admin: 07/10/16 17:16 Dose: 40 mg Tramadol HCl (Ultram) 50 mg PO Q8H PRN PRN Reason: Pain, moderate (4-7) Last Admin: 07/10/16 17:23 Dose: 50 mg - Labs Labs: 07/10/16 13:50 07/10/16 13:50
[2016-07-10] MEDS ORDERED: Morphine 2 mg/ml ISec IVP ONE (22:50)
[2016-07-11] MEDS: Sodium Chloride 0.9% 1,000 ML IV SCH (03:35)
[2016-07-11] MEDS: Cefepime 1gm in NS 100ml 100 ML IVPB SCH (05:44)
[2016-07-11 06:35] LABS: ADD MANUAL DIFF? NO
[2016-07-11 06:48] LABS: BASO # 0.02 K/mm3 (0.0-2.0); BASO % 0.3 % (0.0-3.0); EOS # 0.2 (0.0-0.7); EOS % 2.5 % (1.5-5.0); GRAN % 49.2 % (50.0-68.0); HEMATOCRIT 34.9 % (42.0-52.0); LYMPH # 2.8 (1.2-3.4); LYMPH % 42.3 % (22.0-35.0); MEAN CELL VOLUME 87.9 fL (80.0-105.0); MEAN CORPUSCULAR HEMOGLOBIN 29.2 pg (25.0-35.0); MEAN CORPUSCULAR HGB CONC 33.2 g/dl (31.0-37.0); MEAN PLATELET VOLUME 10.7 fl (7.0-11.0); MONO # 0.4 (0.1-0.6); MONO % 5.7 % (1.0-6.0); PLATELET COUNT 224 10^3/uL (120.0-450.0); RED CELL DISTRIBUTION WIDTH 13.7 % (11.5-14.5); WHITE BLOOD COUNT 6.5 10^3/ul (4.5-11.0)
[2016-07-11] MEDS: Vancomycin 1gm in NS 250ml 250 ML IVPB SCH (06:49)
[2016-07-11 07:00] LABS: BLOOD UREA NITROGEN 14 mg/dL (7-21); CALCIUM 8.6 mg/dL (8.4-10.5); CARBON DIOXIDE 28 mmol/L (21-33); CHLORIDE 104 mmol/L (98-107); GFR AFRICAN-AMERICAN > 60; GLUCOSE,RANDOM 81 mg/dL (70-110); MAGNESIUM 1.9 mg/dL (1.7-2.2); SODIUM 142 mmol/L (132-148)
[2016-07-11 08:10] VITALS: BP 117/64; PULSE 69; RESP 18; TEMP 97.5; O2SAT 95
[2016-07-11] MEDS: Pantoprazole 40 mg EC Tab PO SCH (08:20)
--- NOTE | 2016-07-11 13:12 | PN ---
DATE: 07/11/2016 The patient is doing much better today, was seen earlier in room 378. No fevers and chills. PHYSICAL EXAMINATION: VITAL SIGNS: Temperature is 97. Blood pressure is 117/70, respiratory rate of 16. HEENT: Unremarkable. NECK: Supple. LUNGS: Have decreased breath sounds. HEART: Normal S1, S2. ABDOMEN: Soft, nontender. LABORATORY DATA: Reveals a white count of 6.5, hemoglobin 11, platelets of 224. Chemistries reveal the BUN , creatinine of 0.8. HIV is nonreactive. Influenza is negative. Microbiology reveals the blood cultures are negative. Urine cultures are negative. The patient's back was examined today , and no evidence of any infection, mild discharge has been reported by the patient, but on exam ther e is no evidence of any infection. Dr. Hernandez Roa's progress note is reviewed. He states th e patient has a 4-month history of drainage from the back, does have an appointment with Dr. Florence beth urosurgical for 1 week, and the patient stated to me this morning that is going to go see Dr. Florence peng or his neurosurgical needs. Currently, the patient is on doxycycline and cefepime and vancomycin. W e will change that to doxycycline and p.o. Augmentin pending his evaluation by neurosurgery as an out patient. Need for further neurosurgical intervention and/or to be followed up as outpatient. Case d iscussed with PMD. Tico Etienne MD cc: [phone] TT: 07/11/2016 13:11:06 Confirmation # [id number] Dictation # [id number] mn
--- NOTE | 2016-07-11 13:54 | CP.PCM.DIS ---
<Robert Burch - Last Filed: 07/11/16 13:50> Provider - Provider Date of Admission: 07/10/16 12:00 Attending physician: Maribeth Nicole MD Consults: Neurosurgery - Dr. Simran CARLOS - Dr. Carpio Surgery - Dr. Loving Pulm - Dr. padilla Time Spent in preparation of Discharge (in minutes): 45 Diagnosis - Discharge Diagnosis (1) SOB (shortness of breath) Status: Resolved Priority: Low (2) Asthma attack Status: Resolved Priority: Low Hospital Course - Lab Results Lab Results: Most Recent Lab Values WBC 6.5 10^3/ul (4.5-11.0) 07/11/16 06:20 RBC 3.97 10^6/uL (3.5-6.1) 07/11/16 06:20 Hgb 11.6 gm/dL (14.0-18.0) L 07/11/16 06:20 Hct 34.9 % (42.0-52.0) L 07/11/16 06:20 MCV 87.9 fL (80.0-105.0) 07/11/16 06:20 MCH 29.2 pg (25.0-35.0) 07/11/16 06:20 MCHC 33.2 g/dl (31.0-37.0) 07/11/16 06:20 RDW 13.7 % (11.5-14.5) 07/11/16 06:20 Plt Count 224 10^3/uL (120.0-450.0) 07/11/16 06:20 MPV 10.7 fl (7.0-11.0) 07/11/16 06:20 Gran % 49.2 % (50.0-68.0) L 07/11/16 06:20 Lymph % (Auto) 42.3 % (22.0-35.0) H 07/11/16 06:20 [place] % (Auto) 5.7 % (1.0-6.0) 07/11/16 06:20 Eos % (Auto) 2.5 % (1.5-5.0) 07/11/16 06:20 Baso % (Auto) 0.3 % (0.0-3.0) 07/11/16 06:20 Gran # 3.20 (1.4-6.5) 07/11/16 06:20 Lymph # 2.8 (1.2-3.4) 07/11/16 06:20 [place] # 0.4 (0.1-0.6) 07/11/16 06:20 Eos # 0.2 (0.0-0.7) 07/11/16 06:20 Baso # 0.02 K/mm3 (0.0-2.0) 07/11/16 06:20 pO2 98 mm/Hg (30-55) H 07/09/16 19:45 VBG pH 7.40 (7.32-7.43) 07/09/16 19:45 VBG pCO2 44.0 (40-60) 07/09/16 19:45 VBG HCO3 27.3 mmol/l (21-28) 07/09/16 19:45 VBG Total CO2 28.7 mmol.L (22-28) H 07/09/16 19:45 VBG O2 Sat (Calc) 98.8 % (40-65) H 07/09/16 19:45 VBG Base Excess 2.0 mmol/L (0.0-2.0) 07/09/16 19:45 VBG Potassium 3.6 mmol/L (3.6-5.2) 07/09/16 19:45 Sodium 140.0 mmol/L (132-148) 07/09/16 19:45 Chloride 110.0 mmol/L (98-107) H 07/09/16 19:45 Glucose 148 mg/dl (75-110) H 07/09/16 19:45 Lactate 2.1 mmol/L (0.7-2.1) 07/09/16 19:45 FiO2 21.0 % 07/09/16 19:45 Sodium 142 mmol/L (132-148) 07/11/16 06:20 Potassium 4.0 mmol/L (3.6-5.0) 07/11/16 06:20 Chloride 104 mmol/L (98-107) 07/11/16 06:20 Carbon Dioxide 28 mmol/L (21-33) 07/11/16 06:20 Anion Gap 14 (10-20) 07/11/16 06:20 BUN 14 mg/dL (7-21) 07/11/16 06:20 Creatinine 0.8 mg/dL (0.5-1.4) 07/11/16 06:20 Est GFR ( Amer) > 60 07/11/16 06:20 Est GFR (Non-Af Amer) > 60 07/11/16 06:20 POC Glucose (mg/dL) 67 mg/dL (65-110) 07/10/16 09:53 Random Glucose 81 mg/dL (70-110) 07/11/16 06:20 Calcium 8.6 mg/dL (8.4-10.5) 07/11/16 06:20 Phosphorus 3.2 mg/dL (2.5-4.5) 07/09/16 01:40 Magnesium 1.9 mg/dL (1.7-2.2) 07/11/16 06:20 Total Bilirubin 0.7 mg/dL (0.2-1.3) 07/10/16 13:50 AST 31 U/L (15-59) 07/10/16 13:50 ALT 29 U/L (7-56) 07/10/16 13:50 Alkaline Phosphatase 53 U/L (38-133) 07/10/16 13:50 Total Protein 7.4 g/dL (5.8-8.3) 07/10/16 13:50 Albumin 3.9 g/dL (3.0-4.8) 07/10/16 13:50 Globulin 3.5 gm/dL 07/10/16 13:50 Albumin/Globulin Ratio 1.1 (1.1-1.8) 07/10/16 13:50 Lipase 39 U/L (23-300) 07/09/16 01:40 Procalcitonin 6.47 NG/ML (0.19-0.49) H 07/09/16 07:00 TSH 3rd Generation 0.84 mIU/mL (0.46-4.68) 07/09/16 10:45 Venous Blood Potassium 3.6 mmol/L (3.6-5.2) 07/09/16 19:45 Urine Color Yellow (YELLOW) 07/09/16 01:19 Urine Appearance Clear (CLEAR) 07/09/16 01:19 Urine pH 6.0 (4.7-8.0) 07/09/16 01:19 Ur Specific [place] 1.015 (1.005-1.035) 07/09/16 01:19 Urine Protein Negative mg/dL (<30 mg/dL) 07/09/16 01:19 Urine Glucose (UA) Negative mg/dL (NEGATIVE) 07/09/16 01:19 Urine Ketones Negative mg/dL (NEGATIVE) 07/09/16 01:19 Urine Blood Negative (NEGATIVE) 07/09/16 01:19 Urine Nitrate Negative (NEGATIVE) 07/09/16 01:19 Urine Bilirubin Negative (NEGATIVE) 07/09/16 01:19 Urine Urobilinogen 0.2 E.U./dL (<1 E.U./dL) 07/09/16 01:19 Ur Leukocyte Esterase Negative [place]/uL (NEGATIVE) 07/09/16 01:19 Urine Opiates Screen Negative (NEGATIVE) 07/11/16 03:00 Urine Methadone Screen Negative (NEGATIVE) 07/11/16 03:00 Ur Barbiturates Screen Negative (NEGATIVE) 07/11/16 03:00 Ur Phencyclidine Scrn Negative (NEGATIVE) 07/11/16 03:00 Ur Amphetamines Screen Negative (NEGATIVE) 07/11/16 03:00 U Benzodiazepines Scrn Negative (NEGATIVE) 07/11/16 03:00 U Oth Cocaine Metabols Negative (NEGATIVE) 07/11/16 03:00 U Cannabinoids Screen Negative (NEGATIVE) 07/11/16 03:00 HIV 1&2 Ag/Ab, 4th Gen Nonreactive (Nonreactive) 07/09/16 10:45 Influenza Typ A,B (EIA) Negative for flu a/b (NEGATIVE) 07/09/16 02:22 - Hospital Course Hospital Course: This is a 25 yo M with PMH of Chiari malformation, Spina Bifida, Hypertension, Asthma, Anxiety, and Depression who presents with acute onset palpitations and shortness of breath that awoke him in the AM. Per patient, he began to experience some chills overnight, so he took some Advil and went to sleep. He was abruptly awoken with a sensation of his heart pounding through his chest rapidly, and he became short of breath and dizzy. He also complains of weakness at the time, as he had trouble getting up from a lying position to get to his phone, and states that walking to his phone he felt very unsteady on his feet and felt pre-syncopal. Pt admitted for SOB and palpitations. Pt underwent lower ext doppler which was negative for DVT. Pt was found to have pilonidal cyst on lower back, it was cultured by surgery. Pt seen by neurosurgery. Pt states he has his own neurosurgeon as an outpt and will follow up with him. Pt also had abdominal US which showed hepatosplenomegaly. Pt also seen by pulmonology who who states pt does not have any active pulmonary issues. Pt will be discharged on augmentin and doxycycline for 10 days for pilonidal cyst. He will f/u with PMD and neurosurgery in 1 week. Discharge Exam - Head Exam Head Exam: ATRAUMATIC, NORMAL INSPECTION, NORMOCEPHALIC - ENT Exam ENT Exam: Mucous Membranes Moist, Normal Exam - Respiratory Exam Respiratory Exam: NORMAL BREATHING PATTERN, UNREMARKABLE - Cardiovascular Exam Cardiovascular Exam: RRR, +S1, +S2 - GI/Abdominal Exam GI & Abdominal Exam: Normal Bowel Sounds, Soft. absent: Tenderness - Extremities Exam Extremities exam: normal inspection - Neurological Exam Neurological exam: Alert, CN II-XII Intact, Oriented x3 - Psychiatric Exam Psychiatric exam: Normal Affect, Normal Mood - Skin Skin Exam: Intact, Normal Color, Warm Discharge Plan - Discharge Medications Prescriptions: Amoxicillin/Clavulanate [Augmentin 875 MG-125 MG Tab] 1 tab PO Q12H #20 tab Doxycycline Hyclate [Doryx] 100 mg PO Q12H #20 cap Losartan/Hydrochlorothiazide [Losartan-Hctz 100-25 mg Tab] 1 tab PO DAILY #5 tablet - Follow Up Plan Condition: FAIR Disposition: HOME/ ROUTINE Instructions: Asthma (DC), Asthma (GEN) Additional Instructions: F/u with neurosurgery F/u with PMD Return to hospital if symptoms worsen or return <Maribeth Nicole - Last Filed: 07/11/16 14:47> Provider - Provider Date of Admission: 07/10/16 12:00 Attending physician: Maribeth Nicole MD Hospital Course - Lab Results Lab Results: Most Recent Lab Values WBC 6.5 10^3/ul (4.5-11.0) 07/11/16 06:20 RBC 3.97 10^6/uL (3.5-6.1) 07/11/16 06:20 Hgb 11.6 gm/dL (14.0-18.0) L 07/11/16 06:20 Hct 34.9 % (42.0-52.0) L 07/11/16 06:20 MCV 87.9 fL (80.0-105.0) 07/11/16 06:20 MCH 29.2 pg (25.0-35.0) 07/11/16 06:20 MCHC 33.2 g/dl (31.0-37.0) 07/11/16 06:20 RDW 13.7 % (11.5-14.5) 07/11/16 06:20 Plt Count 224 10^3/uL (120.0-450.0) 07/11/16 06:20 MPV 10.7 fl (7.0-11.0) 07/11/16 06:20 Gran % 49.2 % (50.0-68.0) L 07/11/16 06:20 Lymph % (Auto) 42.3 % (22.0-35.0) H 07/11/16 06:20 [place] % (Auto) 5.7 % (1.0-6.0) 07/11/16 06:20 Eos % (Auto) 2.5 % (1.5-5.0) 07/11/16 06:20 Baso % (Auto) 0.3 % (0.0-3.0) 07/11/16 06:20 Gran # 3.20 (1.4-6.5) 07/11/16 06:20 Lymph # 2.8 (1.2-3.4) 07/11/16 06:20 [place] # 0.4 (0.1-0.6) 07/11/16 06:20 Eos # 0.2 (0.0-0.7) 07/11/16 06:20 Baso # 0.02 K/mm3 (0.0-2.0) 07/11/16 06:20 pO2 98 mm/Hg (30-55) H 07/09/16 19:45 VBG pH 7.40 (7.32-7.43) 07/09/16 19:45 VBG pCO2 44.0 (40-60) 07/09/16 19:45 VBG HCO3 27.3 mmol/l (21-28) 07/09/16 19:45 VBG Total CO2 28.7 mmol.L (22-28) H 07/09/16 19:45 VBG O2 Sat (Calc) 98.8 % (40-65) H 07/09/16 19:45 VBG Base Excess 2.0 mmol/L (0.0-2.0) 07/09/16 19:45 VBG Potassium 3.6 mmol/L (3.6-5.2) 07/09/16 19:45 Sodium 140.0 mmol/L (132-148) 07/09/16 19:45 Chloride 110.0 mmol/L (98-107) H 07/09/16 19:45 Glucose 148 mg/dl (75-110) H 07/09/16 19:45 Lactate 2.1 mmol/L (0.7-2.1) 07/09/16 19:45 FiO2 21.0 % 07/09/16 19:45 Sodium 142 mmol/L (132-148) 07/11/16 06:20 Potassium 4.0 mmol/L (3.6-5.0) 07/11/16 06:20 Chloride 104 mmol/L (98-107) 07/11/16 06:20 Carbon Dioxide 28 mmol/L (21-33) 07/11/16 06:20 Anion Gap 14 (10-20) 07/11/16 06:20 BUN 14 mg/dL (7-21) 07/11/16 06:20 Creatinine 0.8 mg/dL (0.5-1.4) 07/11/16 06:20 Est GFR ( Amer) > 60 07/11/16 06:20 Est GFR (Non-Af Amer) > 60 07/11/16 06:20 POC Glucose (mg/dL) 67 mg/dL (65-110) 07/10/16 09:53 Random Glucose 81 mg/dL (70-110) 07/11/16 06:20 Calcium 8.6 mg/dL (8.4-10.5) 07/11/16 06:20 Phosphorus 3.2 mg/dL (2.5-4.5) 07/09/16 01:40 Magnesium 1.9 mg/dL (1.7-2.2) 07/11/16 06:20 Total Bilirubin 0.7 mg/dL (0.2-1.3) 07/10/16 13:50 AST 31 U/L (15-59) 07/10/16 13:50 ALT 29 U/L (7-56) 07/10/16 13:50 Alkaline Phosphatase 53 U/L (38-133) 07/10/16 13:50 Total Protein 7.4 g/dL (5.8-8.3) 07/10/16 13:50 Albumin 3.9 g/dL (3.0-4.8) 07/10/16 13:50 Globulin 3.5 gm/dL 07/10/16 13:50 Albumin/Globulin Ratio 1.1 (1.1-1.8) 07/10/16 13:50 Lipase 39 U/L (23-300) 07/09/16 01:40 Procalcitonin 6.47 NG/ML (0.19-0.49) H 07/09/16 07:00 TSH 3rd Generation 0.84 mIU/mL (0.46-4.68) 07/09/16 10:45 Venous Blood Potassium 3.6 mmol/L (3.6-5.2) 07/09/16 19:45 Urine Color Yellow (YELLOW) 07/09/16 01:19 Urine Appearance Clear (CLEAR) 07/09/16 01:19 Urine pH 6.0 (4.7-8.0) 07/09/16 01:19 Ur Specific [place] 1.015 (1.005-1.035) 07/09/16 01:19 Urine Protein Negative mg/dL (<30 mg/dL) 07/09/16 01:19 Urine Glucose (UA) Negative mg/dL (NEGATIVE) 07/09/16 01:19 Urine Ketones Negative mg/dL (NEGATIVE) 07/09/16 01:19 Urine Blood Negative (NEGATIVE) 07/09/16 01:19 Urine Nitrate Negative (NEGATIVE) 07/09/16 01:19 Urine Bilirubin Negative (NEGATIVE) 07/09/16 01:19 Urine Urobilinogen 0.2 E.U./dL (<1 E.U./dL) 07/09/16 01:19 Ur Leukocyte Esterase Negative [place]/uL (NEGATIVE) 07/09/16 01:19 Urine Opiates Screen Negative (NEGATIVE) 07/11/16 03:00 Urine Methadone Screen Negative (NEGATIVE) 07/11/16 03:00 Ur Barbiturates Screen Negative (NEGATIVE) 07/11/16 03:00 Ur Phencyclidine Scrn Negative (NEGATIVE) 07/11/16 03:00 Ur Amphetamines Screen Negative (NEGATIVE) 07/11/16 03:00 U Benzodiazepines Scrn Negative (NEGATIVE) 07/11/16 03:00 U Oth Cocaine Metabols Negative (NEGATIVE) 07/11/16 03:00 U Cannabinoids Screen Negative (NEGATIVE) 07/11/16 03:00 HIV 1&2 Ag/Ab, 4th Gen Nonreactive (Nonreactive) 07/09/16 10:45 Influenza Typ A,B (EIA) Negative for flu a/b (NEGATIVE) 07/09/16 02:22 Attending/Attestation - Attestation I have personally seen and examined this patient.: Yes I have fully participated in the care of the patient.: Yes I have reviewed all pertinent clinical information, including history, physical exam and plan: Yes Notes (Text): 07/11/16 14:43 25 year old male with past medical history of Chiari malformation, spina bifida surgery, hypertension, anxiety and asthma who presented with acute episode of palpitations and shortness of breath. He was found to have fever and admitted to rule out sepsis. However CXR was negative as was UA. Cultures are negative to date. Echocardiogram and LE dopplers are negative. Procalcitonin was elevated. He had some pilonydal cyst with drainage which was sent for cultures. He was seen by ID who recommended po doxycycline and augmentin. He was seen by NS who recommended outpatient NS follow up. He was seen by pulmonary who agreed he needs an outpatient sleep study which he states he is scheduled for. Patient will be discharged home today. Follow up with pmd. Follow up with neurosurgeon. Recommend outpatient sleep study. Continue with po antibiotics as prescribed. Maribeth Nicole MD Hospitalist.
[2016-07-11] MEDS ORDERED: Influenza Vaccine 45 MCG/0.5 ml IM ONE (14:47)
[2016-07-11] MEDS ORDERED: Amoxicillin-Clav 875-125 mg Tab PO SCH (22:00)
== END 2016-07-11 15:48 | disposition home or self-care (01) | DRG 96 ==
LOC: ED 00:17 → ERH 05:45 → 3RSO 08:32 → OBSVTOIN 07-10 12:00
PROVIDERS: ADMIT Hospitalist; ATTEND Internal Medicine
DX: J45.909 Unspecified asthma, uncomplicated (principal); E87.2 Acidosis; R16.2 Hepatomegaly with splenomegaly, not elsewhere classified; E83.42 Hypomagnesemia; Z68.43 Body mass index [BMI] 50.0-59.9, adult; L05.91 Pilonidal cyst without abscess; E86.0 Dehydration; I10 Essential (primary) hypertension; E66.01 Morbid (severe) obesity due to excess calories; G43.909 Migraine, unspecified, not intractable, without status migrainosus; F32.9 Major depressive disorder, single episode, unspecified; F41.9 Anxiety disorder, unspecified; Z87.891 Personal history of nicotine dependence; Z87.728 Personal history of other specified (corrected) congenital malformations of nervous system and sense organs

== ENCOUNTER 2016-10-16 22:57 | Observation (INO) | payer MEDICAID ==
--- NOTE | 2016-10-16 23:38 | ED PDOC ---
Arrival/HPI - General Chief Complaint: Flu-like Symptoms Time Seen by Provider: 10/16/16 23:20 Historian: Patient - History of Present Illness Narrative History of Present Illness (Text): 10/16/16 23:35 Rosendo Carlton is a 25 year old male former smoker, whose past medical history includes morbid obesity, chiari malformation, spina bifidia with surgical repair, hypertension, asthma, and anxiety, who presents to the Emergency department complaining of generalized weakness. Patient states he has been experiencing generalized weakness for the past week with associated thirst and muscles spasms today. Patient state he feels like he needs to be "drinking water constantly." Patient also reports bilateral lower extremity swelling for the past week for which he was seen by his PMD and placed on Lasix but denies any significant relief. Patient notes he is scheduled for an exploratory lower back surgery on 10/27/16. Patient denies any chest pain, shortness of breath, nausea, vomiting, diarrhea, neck pain, headache, dizziness, or any other complaints. PMD: Dr. Eliseo Collier Time/Duration: 1 week Symptom Onset: Gradual Symptom Course: Unchanged Activities at Onset: Rest, Light Context: Home Past Medical History - Provider Review Nursing Documentation Reviewed: Yes - Past History Past History: No Previous - Infectious Disease Hx of Infectious Diseases: None - Tetanus Immunization Tetanus Immunization: Unknown - Cardiac Hx Hypertension: Yes - Pulmonary Hx Asthma: Yes Hx Pneumonia: Yes - Neurological Hx Migraine: Yes - HEENT Hx HEENT Disorder: Yes (budd neal syndrome) - Musculoskeletal/Rheumatological Hx Falls: No - Gastrointestinal Hx Gastrointestinal Disorders: Yes (frequently has gas pain after eating) - Psychiatric Hx Anxiety: Yes Hx Depression: Yes Hx Emotional Abuse: No Hx Physical Abuse: No Hx Substance Use: No - Past Surgical History Past Surgical History: No Previous - Surgical History Other/Comment: brain stem surgery - Anesthesia Hx Anesthesia: No Hx Anesthesia Reactions: No Hx Malignant Hyperthermia: No - Suicidal Assessment Feels Threatened In Home Enviroment: No Family/Social History - Physician Review Nursing Documentation Reviewed: Yes Family/Social History: Unknown Family HX Smoking Status: Former Smoker Hx Alcohol Use: Yes Hx Substance Use: No Hx Substance Use Treatment: No Allergies/Home Meds Allergies/Adverse Reactions: Allergies No Known Allergies Allergy (Verified 07/28/14 01:43) Home Medications: Home Meds Medication Instructions Recorded Confirmed Hydroxyzine HCl 1 tab PO Q6H PRN 07/09/16 07/09/16 Review of Systems - Physician Review All systems were reviewed & negative as marked: Yes - Review of Systems Constitutional: Other (+generalized weakness) Eyes: Normal ENT: Normal Respiratory: Normal. absent: SOB, Cough Cardiovascular: Normal. absent: Chest Pain Gastrointestinal: Normal. absent: Abdominal Pain, Nausea, Vomiting Genitourinary Male: Normal. absent: Dysuria, Frequency, Hematuria, Urinary Output Changes Musculoskeletal: Myalgias (+muscle spasms), Other (+bilatera lower extremity swelling) Skin: Normal Neurological: Normal Endocrine: Polydipsia Hemo/Lymphatic: Normal Psychiatric: Normal Physical Exam Vital Signs Reviewed: Yes Vital Signs Temp Pulse Resp BP Pulse Ox 10/16/16 23:26 98.1 F 89 18 161/74 H 96 Temperature: Afebrile Blood Pressure: Hypertensive Pulse: Regular Respiratory Rate: Normal Appearance: Positive for: Well-Appearing, Non-Toxic, Comfortable, Other ( Morbidly obese) Pain Distress: None Mental Status: Positive for: Alert and Oriented X 3 - Systems Exam Head: Present: Atraumatic, Normocephalic Pupils: Present: PERRL Extroacular Muscles: Present: EOMI Conjunctiva: Present: Normal Mouth: Present: Moist Mucous Membranes Neck: Present: Normal Range of Motion Respiratory/Chest: Present: Clear to Auscultation, Good Air Exchange. No: Respiratory Distress, Accessory Muscle Use Cardiovascular: Present: Regular Rate and Rhythm, Normal S1, S2. No: Murmurs Abdomen: Present: Normal Bowel Sounds. No: Tenderness, Distention, Peritoneal Signs Back: Present: Normal Inspection Upper Extremity: Present: Normal Inspection. No: Cyanosis, Edema Lower Extremity: Present: Edema (+1 pitting edema bilaterally), Neurovascularly Intact, Capillary Refill < 2 s. No: Cyanosis, Tenderness, Erythema, Deformity, Temperature Abnormalties Neurological: Present: GCS=15, CN II-XII Intact, Speech Normal Skin: Present: Warm, Dry, Normal Color. No: Rashes Psychiatric: Present: Alert, Oriented x 3, Normal Insight, Normal Concentration Medical Decision Making ED Course and Treatment: 10/16/16 23:35 Impression: 25 year old male complaining of generalized weakness, muscles spasms, thirst, and bilateral lower extremity swelling. Differential Diagnosis include but are not limited to: dehydration vs. electrolyte abnormality vs. infection Plan: -- EKG -- Chest X-ray -- Labs, troponin, VBG -- Urinalysis -- IV fluids -- Reassess and disposition Prior Visits: Notes and results from previous visits were reviewed. On 07/09/2016, pt was seen in the Emergency department for chest tightness, epigastric pain, chills, and weakness. Pt was admitted to the hospital for further evaluation. Progress Notes: 10/17/16 00:01 Reviewed radiology, Chest X-ray shows no acute processes. 10/17/16 01:52 Case discussed with medical device custodial operations manager, who is aware and agrees with plan. House physician paged. 10/17/16 01:58 Reviewed EKG, NSR at [address]-segment elevations or depressions, no T-wave inversions, normal intervals. 10/17/16 01:[address] Pena, who is aware and agrees with plan. Accepts pt in to hospitalist service. Pt will go to [facility] observation for dehydration. Pt is no acute distress. Discussed results and hospital observation plan with pt , who is aware and verbalizes understanding. - Lab Interpretations Lab Results: 10/17/16 00:06 10/17/16 00:06 Lab Results 10/17/16 00:59: Urine Color Yellow, Urine Appearance Clear, Urine pH 6.0, Ur Specific [place] 1.020, Urine Protein Negative, Urine Glucose (UA) Negative, Urine Ketones Negative, Urine Blood Trace-intact H, Urine Nitrate Negative, Urine Bilirubin Negative, Urine Urobilinogen 0.2, Ur Leukocyte Esterase Negative , Urine RBC 0 - 2, Urine WBC Negative, Ur Epithelial Cells None, Urine Bacteria Few 10/17/16 00:06: pO2 128 H, VBG pH 7.40, VBG pCO2 49.0, VBG HCO3 30.4 H, VBG Total CO2 31.9 H, VBG O2 Sat (Calc) 99.4 H, VBG Base Excess 4.5 H, VBG Potassium 3.3 L, Sodium 139.0, Chloride 100.0, Glucose 97, Lactate 2.0, FiO2 21.0, Venous Blood Potassium 3.3 L 10/17/16 00:06: Sodium 136, Chloride 99, Potassium 3.3 L, Carbon Dioxide 29, Anion Gap 11, BUN 27 H, Creatinine 0.8, Est GFR ( Amer) > 60, Est GFR ( Non-Af Amer) > 60, Random Glucose 90, Calcium 8.9, Total Bilirubin 1.1, AST 43, ALT 37, Alkaline Phosphatase 49, Troponin I < 0.01, Total Protein 7.1, Albumin 3.8, Globulin 3.3, Albumin/Globulin Ratio 1.2 10/17/16 00:06: WBC 10.8 D, RBC 4.45, Hgb 13.4 L, Hct 39.8 L, MCV 89.4, MCH 30.1, MCHC 33.7, RDW 14.2, Plt Count 233, MPV 9.6, Gran % 59.4, Lymph % (Auto) 31.6, [place] % (Auto) 7.0 H, Eos % (Auto) 1.8, Baso % (Auto) 0.2, Gran # 6.42, Lymph # 3.4, [place] # 0.8 H, Eos # 0.2, Baso # 0.02 I have reviewed the lab results: Yes - RAD Interpretation Radiology Orders: 10/16/16 23:35 CHEST PORTABLE [RAD] Stat Can Top Setter: ED Physician - EKG Interpretation EKG Interpretation (Text): EKG: Ordered, reviewed, and independently interpreted the EKG. Rate : 79 BPM Rhythm : NSR Interpretation : No ST-segment elevations or depressions, no T-wave inversions, normal intervals. Comparison : No acute change from previous EKG from 07/09/2016. Interpreted by ED Physician: Yes Type: 12 lead EKG - Medication Orders Current Medication Orders: Discontinued Medications Acetaminophen (Tylenol 325mg Tab) 650 mg PO Q6H PRN PRN Reason: Pain, Mild (1-3) Albuterol/Ipratropium (Duoneb 3 Mg/0.5 Mg (3 Ml) Ud) 3 ml IH Q2H PRN PRN Reason: Shortness of Breath Cyclobenzaprine HCl (Flexeril) 5 mg PO TID PRN PRN Reason: Other Last Admin: 10/17/16 15:42 Dose: 5 mg Enoxaparin Sodium (Lovenox) 40 mg SC DAILY KENY PRN Reason: Protocol Last Admin: 10/18/16 10:34 Dose: 40 mg Fluoxetine HCl (Prozac) 20 mg PO DAILY [facility] Last Admin: 10/18/16 10:35 Dose: 20 mg Hydroxyzine HCl (Atarax) 25 mg PO Q6H PRN PRN Reason: Psychosis Sodium Chloride (Sodium Chloride 0.9%) 1,000 mls @ 80 mls/hr IV .[id number] [facility] Last Admin: 10/18/16 00:49 Dose: 80 mls/hr Losartan Potassium (Cozaar) 100 mg PO DAILY [facility] Last Admin: 10/18/16 10:34 Dose: 100 mg Oxycodone/Acetaminophen (Percocet 5/325 Mg Tab) 1 tab PO Q6H PRN PRN Reason: Pain, moderate (4-7) Stop: 10/20/16 13:38 Last Admin: 10/18/16 10:34 Dose: 1 tab Pantoprazole Sodium (Protonix Inj) 40 mg IVP DAILY [facility] Last Admin: 10/18/16 10:34 Dose: 40 mg Potassium Chloride (K-Dur 20 Meq Er Tab) 40 meq PO STAT STA Stop: 10/17/16 02:02 Last Admin: 10/17/16 02:22 Dose: 40 meq - Scribe Statement The provider has reviewed the documentation as recorded by the Yovani Ríos All medical record entries made by the Yovani were at my direction and personally dictated by me. I have reviewed the chart and agree that the record accurately reflects my personal performance of the history, physical exam, medical decision making, and the department course for this patient. I have also personally directed, reviewed, and agree with the discharge instructions and disposition. Disposition/Present on Arrival - Present on Arrival Any Indicators Present on Arrival: No History of DVT/PE: No History of Uncontrolled Diabetes: No Urinary Catheter: No History of Decub. Ulcer: No History Surgical Site Infection Following: None - Disposition Have Diagnosis and Disposition been Completed?: Yes Diagnosis: Dehydration Disposition: HOSPITALIZED Disposition Time: 02:00 Condition: IMPROVED
[2016-10-17] MEDS: Sodium Chloride 0.9% 1,000 ML IV SCH ×2 (00:17→13:23)
[2016-10-17 00:25] LABS: ADD MANUAL DIFF? NO
[2016-10-17 00:29] LABS: VENOUS BLOOD GAS BASE EXCESS 4.5 mmol/L (0.0-2.0)
[2016-10-17 00:46] LABS: ALB/GLOB RATIO 1.2 (1.1-1.8); ALKALINE PHOSPHATASE 49 U/L (38-133); ALT/SGPT 37 U/L (7-56); AST/SGOT 43 U/L (15-59); BILIRUBIN,TOTAL 1.1 mg/dL (0.2-1.3); BLOOD UREA NITROGEN 27 mg/dL (7-21); CALCIUM 8.9 mg/dL (8.4-10.5); CARBON DIOXIDE 29 mmol/L (21-33); CHLORIDE 99 mmol/L (98-107); GFR AFRICAN-AMERICAN > 60; GLUCOSE,RANDOM 90 mg/dL (70-110); POTASSIUM 3.3 mmol/L (3.6-5.0); SODIUM 136 mmol/L (132-148); TOTAL PROTEIN 7.1 g/dL (5.8-8.3)
[2016-10-17 00:55] LABS: BASO # 0.02 K/mm3 (0.0-2.0); BASO % 0.2 % (0.0-3.0); EOS # 0.2 (0.0-0.7); EOS % 1.8 % (1.5-5.0); GRAN # 6.42 (1.4-6.5); GRAN % 59.4 % (50.0-68.0); HEMATOCRIT 39.8 % (42.0-52.0); LYMPH # 3.4 (1.2-3.4); LYMPH % 31.6 % (22.0-35.0); MEAN CELL VOLUME 89.4 fL (80.0-105.0); MEAN CORPUSCULAR HEMOGLOBIN 30.1 pg (25.0-35.0); MEAN CORPUSCULAR HGB CONC 33.7 g/dl (31.0-37.0); MEAN PLATELET VOLUME 9.6 fl (7.0-11.0); MONO # 0.8 (0.1-0.6); PLATELET COUNT 233 10^3/uL (120.0-450.0); RED CELL DISTRIBUTION WIDTH 14.2 % (11.5-14.5); WHITE BLOOD COUNT 10.8 10^3/ul (4.5-11.0)
[2016-10-17 01:07] LABS: TROPONIN I < 0.01 ng/mL
[2016-10-17 01:28] LABS: URINE BILIRUBIN NEGATIVE (NEGATIVE); URINE BLOOD TRACE-INTACT (NEGATIVE); URINE GLUCOSE (UA) NEGATIVE (NEGATIVE); URINE KETONE NEGATIVE (NEGATIVE); URINE LEUKOCYTE ESTERASE NEGATIVE Leu/uL (NEGATIVE); URINE PROTEIN NEGATIVE mg/dL (<30 mg/dL); URINE UROBILINOGEN 0.2 E.U./dL (<1 E.U./dL)
[2016-10-17 01:37] LABS: URINE APPEARANCE CLEAR (CLEAR); URINE COLOR YELLOW (YELLOW)
[2016-10-17] MEDS ORDERED: Potassium Chloride 20 mEq ER Tab PO STA (02:01)
[2016-10-17] MEDS ORDERED: Albuterol-Ipratrop 3 mg / 0.5 (3 ml) UD IH PRN (02:03)
[2016-10-17 02:14] LABS: URINE RBC 0 - 2 /hpf (0-2); URINE WBC NEGATIVE /hpf (0-6)
[2016-10-17 02:15] LABS: URINE BACTERIA FEW (NEG)
--- NOTE | 2016-10-17 03:01 | CP.PCM.HP ---
<IvánGilberto moreno - Last Filed: 10/17/16 03:33> History of Present Illness - History of Present Illness History of Present Illness: CC: Malaise HPI: Patient is a 25yo male with past medical history of chiari malformation, Spina Bifida s/p surgical repairs, Hypertension, Asthma, Anxiety, and Depression who presents c/o generalized weakness/fatigue for the past week. Patient states that he has been feeling unusually tired with increased thirst, lower extremity edema with numbness and calf/thigh muscle spasms. He reports that he was recently seen by his PMD for pre-op clearance of a scheduled lower back surgery for spina bifida and had mentioned new-onset lower extremity pitting edema for which he was started on lasix 20mg po daily. He states that the lasix has not provided any relief. He reported that his symptoms feel similar to a prior admission he had back in June of this year for which he was found to have sepsis secondary to a lower back wound. He denies chest pain, palpitations, SOB, abdominal pain, nausea, vomiting, fever, chills, cough, focal weakness, tingling. 12point ROS as per HPI above, otherwise negative PMH: chiari malformation, Spina Bifida s/p surgical repairs, Hypertension, Asthma, Anxiety, and Depression PSH: Chiari malformation surgery (age 7), x2 Spina bifida repair surgeries (1995 , 1996) Allergies: NKDA SHx: Former tobacco user (quit > 1 yr ago, 1 ppd x8 years), Social EtOH, denies illicits/IVDA FHx: Heart disease (cousin) PMD: Dr. Collier Present on Admission - Present on Admission Any Indicators Present on Admission: No Past Patient History - Infectious Disease Hx of Infectious Diseases: None - Tetanus Immunizations Tetanus Immunization: Unknown - Past Social History Smoking Status: Former Smoker - CARDIAC Hx Hypertension: Yes - PULMONARY Hx Asthma: Yes Hx Pneumonia: Yes - NEUROLOGICAL Hx Migraine: Yes - HEENT Hx HEENT Problems: Yes (budd neal syndrome) - MUSCULOSKELETAL/RHEUMATOLOGICAL Hx Falls: No - GASTROINTESTINAL Hx Gastrointestinal Disorders: Yes (frequently has gas pain after eating) - PSYCHIATRIC Hx Anxiety: Yes Hx Depression: Yes Hx Emotional Abuse: No Hx Physical Abuse: No Hx Substance Use: No - SURGICAL HISTORY Other/Comment: brain stem surgery - ANESTHESIA Hx Anesthesia: No Hx Anesthesia Reactions: No Hx Malignant Hyperthermia: No Meds Allergies/Adverse Reactions: Allergies Allergy/AdvReac Type Severity Reaction Status Date / Time No Known Allergies Allergy Verified 07/28/14 01:43 Physical Exam - Constitutional Appears: Non-toxic, No Acute Distress Additional comments: morbidly obese - Head Exam Head Exam: ATRAUMATIC, NORMAL INSPECTION, NORMOCEPHALIC - Eye Exam Eye Exam: EOMI, PERRL - ENT Exam ENT Exam: Mucous Membranes Moist - Neck Exam Neck exam: Positive for: Normal Inspection. Negative for: Lymphadenopathy, Tenderness, Thyromegaly - Respiratory Exam Respiratory Exam: Decreased Breath Sounds. absent: Accessory Muscle Use, Prolonged Expiratory Phase, Rales, Rhonchi, Wheezes - Cardiovascular Exam Cardiovascular Exam: RRR, +S1, +S2. absent: Gallop, JVD, Rubs - GI/Abdominal Exam GI & Abdominal Exam: Soft. absent: Distended, Firm, Guarding, Rebound, Tenderness - Extremities Exam Extremities exam: Positive for: pedal edema (trace bilateral pitting edema). Negative for: calf tenderness, tenderness - Back Exam Additional comments: no visible wounds - Neurological Exam Neurological exam: Alert, Oriented x3 - Psychiatric Exam Psychiatric exam: Normal Affect, Normal Mood - Skin Skin Exam: Dry, Intact, Normal Color, Warm Results - Vital Signs Recent Vital Signs: Last Vital Signs Temp 98.1 F 10/16/16 23:26 Pulse 89 10/16/16 23:26 Resp 18 10/16/16 23:26 BP 161/74 H 10/16/16 23:26 Pulse Ox 96 10/16/16 23:26 - Labs Result Diagrams: 10/17/16 00:06 10/17/16 00:06 Labs: Laboratory Results - last 24 hr 10/17/16 10/17/16 10/17/16 00:06 00:06 00:06 WBC 10.8 D RBC 4.45 Hgb 13.4 L Hct 39.8 L MCV 89.4 MCH 30.1 MCHC 33.7 RDW 14.2 Plt Count 233 MPV 9.6 Gran % 59.4 Lymph % (Auto) 31.6 Taylor % (Auto) 7.0 H Eos % (Auto) 1.8 Baso % (Auto) 0.2 Gran # 6.42 Lymph # 3.4 Taylor # 0.8 H Eos # 0.2 Baso # 0.02 pO2 128 H VBG pH 7.40 VBG pCO2 49.0 VBG HCO3 30.4 H VBG Total CO2 31.9 H VBG O2 Sat (Calc) 99.4 H VBG Base Excess 4.5 H VBG Potassium 3.3 L Sodium 136 139.0 Chloride 99 100.0 Glucose 97 Lactate 2.0 FiO2 21.0 Potassium 3.3 L Carbon Dioxide 29 Anion Gap 11 BUN 27 H Creatinine 0.8 Est GFR ( Amer) > 60 Est GFR (Non-Af Amer) > 60 Random Glucose 90 Calcium 8.9 Total Bilirubin 1.1 AST 43 ALT 37 Alkaline Phosphatase 49 Troponin I < 0.01 Total Protein 7.1 Albumin 3.8 Globulin 3.3 Albumin/Globulin Ratio 1.2 Venous Blood Potassium 3.3 L Urine Color Urine Appearance Urine pH Ur Specific [place] Urine Protein Urine Glucose (UA) Urine Ketones Urine Blood Urine Nitrate Urine Bilirubin Urine Urobilinogen Ur Leukocyte Esterase Urine RBC Urine WBC Ur Epithelial Cells Urine Bacteria 10/17/16 00:59 WBC RBC Hgb Hct MCV MCH MCHC RDW Plt Count MPV Gran % Lymph % (Auto) Taylor % (Auto) Eos % (Auto) Baso % (Auto) Gran # Lymph # Taylor # Eos # Baso # pO2 VBG pH VBG pCO2 VBG HCO3 VBG Total CO2 VBG O2 Sat (Calc) VBG Base Excess VBG Potassium Sodium Chloride Glucose Lactate FiO2 Potassium Carbon Dioxide Anion Gap BUN Creatinine Est GFR ( Amer) Est GFR (Non-Af Amer) Random Glucose Calcium Total Bilirubin AST ALT Alkaline Phosphatase Troponin I Total Protein Albumin Globulin Albumin/Globulin Ratio Venous Blood Potassium Urine Color Yellow Urine Appearance Clear Urine pH 6.0 Ur Specific [place] 1.020 Urine Protein Negative Urine Glucose (UA) Negative Urine Ketones Negative Urine Blood Trace-intact H Urine Nitrate Negative Urine Bilirubin Negative Urine Urobilinogen 0.2 Ur Leukocyte Esterase Negative Urine RBC 0 - 2 Urine WBC Negative Ur Epithelial Cells None Urine Bacteria Few Assessment & Plan - Assessment and Plan (Free Text) Plan: 25 yo male with history of Chiari malformation, Spina Bifida, Hypertension, Asthma, Anxiety, and Depression presents c/o generalized weakness/fatigue x 1 week 1. Generalized weakness fatigue -afebrile, no leukocytosis -Lactate 2.0 -CXR revealed no active disease -EKG reviewed; normal sinus rhythm with no acute ST-T wave changes -Echocardiogram from 06/2016 revealed normal LVEF; see full report -Troponin negative x1, will trend -Sepsis workup pending: Bcx, Ucx, procalcitonin -Pending: A1C, lipid panel, TSH, BNP -Continue with IVF hydration with NS @ 80cc/hr 2. Hypertension -Continue home losartan 3. Depression/Anxiety -Continue home Prozac and hydroxyzine 4. Asthma -Continue duoneb PRN 5. GI/DVT prophylaxis -Protonix/Lovenox Patient seen and case discussed with attending, Dr. Pena - Date & Time Date: 10/17/16 Time: 03:10 <Suleiman Pena - Last Filed: 10/17/16 04:25> Results - Vital Signs Recent Vital Signs: Last Vital Signs Temp 98.1 F 10/16/16 23:26 Pulse 89 10/16/16 23:26 Resp 18 10/16/16 23:26 BP 161/74 H 10/16/16 23:26 Pulse Ox 96 10/16/16 23:26 - Labs Result Diagrams: 10/17/16 00:06 10/17/16 00:06 Attending/Attestation - Attestation I have personally seen and examined this patient.: Yes I have fully participated in the care of the patient.: Yes I have reviewed all pertinent clinical information: Yes Notes (Text): 10/17/16 04:24 Patient was seen when he was in bed # 3 in the ER. Agree with history, physical examination,assessment and plan. This 25 year old white male with history of hypertension, asthma, anxiety, spina bifida, pneumonia, migraines, Arnold-Chiari malformation, occ use of marijuana and alcohol,ex smoker, family history of breast cancer (PGM), who is scheduled in st week of October for surgery for spina bifida comes in with complains of numbness of both lower extremities, for one month, generalized weakness, muscle spasm,increased thirst (States that he drank four litres of water yesterday), headaches on and off, hypokalemia , borderline anemia.
[2016-10-17 04:23] LABS: VENOUS BLOOD GAS BASE EXCESS 4.5 mmol/L (0.0-2.0); VENOUS BLOOD PH 7.42 (7.32-7.43)
[2016-10-17 04:34] VITALS: BMI 63.4
[2016-10-17 07:21] LABS: ADD MANUAL DIFF? NO
[2016-10-17 07:31] LABS: BASO # 0.02 K/mm3 (0.0-2.0); BASO % 0.2 % (0.0-3.0); EOS # 0.2 (0.0-0.7); EOS % 1.9 % (1.5-5.0); GRAN # 5.43 (1.4-6.5); GRAN % 60.9 % (50.0-68.0); HEMATOCRIT 39.4 % (42.0-52.0); LYMPH # 2.8 (1.2-3.4); MEAN CELL VOLUME 89.5 fL (80.0-105.0); MEAN CORPUSCULAR HEMOGLOBIN 29.5 pg (25.0-35.0); MEAN PLATELET VOLUME 9.8 fl (7.0-11.0); MONO # 0.5 (0.1-0.6); PLATELET COUNT 225 10^3/uL (120.0-450.0); RED CELL DISTRIBUTION WIDTH 14.3 % (11.5-14.5); WHITE BLOOD COUNT 8.9 10^3/ul (4.5-11.0)
[2016-10-17 07:40] LABS: ALB/GLOB RATIO 1.1 (1.1-1.8); ALKALINE PHOSPHATASE 54 U/L (38-133); ALT/SGPT 48 U/L (7-56); AST/SGOT 37 U/L (15-59); BILIRUBIN,TOTAL 1.3 mg/dL (0.2-1.3); BLOOD UREA NITROGEN 23 mg/dL (7-21); CALCIUM 8.6 mg/dL (8.4-10.5); CARBON DIOXIDE 29 mmol/L (21-33); CHLORIDE 102 mmol/L (98-107); CHOLESTEROL 200 mg/dL (130-200); GFR AFRICAN-AMERICAN > 60; GLUCOSE,RANDOM 73 mg/dL (70-110); MAGNESIUM 1.9 mg/dL (1.7-2.2); PHOSPHOROUS 4.7 mg/dL (2.5-4.5); POTASSIUM 3.4 mmol/L (3.6-5.0); SODIUM 138 mmol/L (132-148); TOTAL PROTEIN 6.9 g/dL (5.8-8.3)
--- NOTE | 2016-10-17 08:08 | RAD ---
HISTORY: weakness COMPARISON: 07/09/2016 FINDINGS: LUNGS: No active pulmonary disease. PLEURA: No significant pleural effusion identified, no pneumothorax apparent. CARDIOVASCULAR: Normal. OSSEOUS STRUCTURES: No significant abnormalities. VISUALIZED UPPER ABDOMEN: Normal. OTHER FINDINGS: None. IMPRESSION: No active disease.
[2016-10-17 08:13] LABS: TROPONIN I < 0.01 ng/mL
[2016-10-17] MEDS: Enoxaparin 40 mg Syringe SC SCH (09:13)
[2016-10-17 09:42] LABS: URINE BILIRUBIN NEGATIVE (NEGATIVE); URINE BLOOD NEGATIVE (NEGATIVE); URINE GLUCOSE (UA) NEGATIVE (NEGATIVE); URINE KETONE NEGATIVE (NEGATIVE); URINE LEUKOCYTE ESTERASE NEGATIVE Leu/uL (NEGATIVE); URINE PROTEIN NEGATIVE mg/dL (<30 mg/dL); URINE UROBILINOGEN 0.2 E.U./dL (<1 E.U./dL)
[2016-10-17 09:49] LABS: URINE APPEARANCE CLEAR (CLEAR); URINE COLOR YELLOW (YELLOW)
[2016-10-17] MEDS ORDERED: CLINDAMYCIN 1% TOP SCH (13:30)
[2016-10-17] MEDS: Oxycodone/Acetaminophen 5/325 mg Tab PO PRN ×2 (15:42→21:52)
--- NOTE | 2016-10-17 19:09 | US ---
HISTORY: Leg pain and swelling. Evaluate for DVT PHYSICIAN(S): Giovanni Yu MD. TECHNIQUE: Duplex sonography and color-flow Doppler with graded compression were used to evaluate the deep venous systems of both lower extremities. The exam is very limited by body habitus and edema. The tibial veins are not adequately seen. FINDINGS: The visualized deep venous systems of both lower extremities are sonographically normal and compressible. Normal wave forms and augmentation are seen. There is no sonographic evidence for deep venous thrombosis in the visualized segments of both lower extremities. IMPRESSION: No sonographic evidence for deep venous thrombosis in the visualized segments of both lower extremities. Limited study.
[2016-10-18] MEDS: Sodium Chloride 0.9% 1,000 ML IV SCH (00:49)
--- NOTE | 2016-10-18 01:15 | CARD ---
APPROVED REPORT EKG Measurement Heart [id number] <Conclusion> Normal sinus rhythm Normal ECG
[2016-10-18 07:57] LABS: ADD MANUAL DIFF? NO
[2016-10-18 08:01] LABS: ALB/GLOB RATIO 1.1 (1.1-1.8); ALKALINE PHOSPHATASE 46 U/L (38-133); ALT/SGPT 42 U/L (7-56); AST/SGOT 30 U/L (15-59); BILIRUBIN,TOTAL 0.8 mg/dL (0.2-1.3); BLOOD UREA NITROGEN 18 mg/dL (7-21); CALCIUM 8.4 mg/dL (8.4-10.5); CARBON DIOXIDE 26 mmol/L (21-33); CHLORIDE 106 mmol/L (98-107); GFR AFRICAN-AMERICAN > 60; GLUCOSE,RANDOM 78 mg/dL (70-110); POTASSIUM 3.8 mmol/L (3.6-5.0); SODIUM 139 mmol/L (132-148); TOTAL PROTEIN 6.6 g/dL (5.8-8.3)
[2016-10-18 08:09] LABS: BASO # 0.02 K/mm3 (0.0-2.0); BASO % 0.3 % (0.0-3.0); EOS # 0.2 (0.0-0.7); EOS % 1.9 % (1.5-5.0); GRAN # 4.84 (1.4-6.5); GRAN % 62.5 % (50.0-68.0); HEMATOCRIT 39.8 % (42.0-52.0); LYMPH # 2.2 (1.2-3.4); LYMPH % 28.6 % (22.0-35.0); MEAN CELL VOLUME 90.7 fL (80.0-105.0); MEAN CORPUSCULAR HEMOGLOBIN 29.8 pg (25.0-35.0); MEAN CORPUSCULAR HGB CONC 32.9 g/dl (31.0-37.0); MEAN PLATELET VOLUME 9.7 fl (7.0-11.0); MONO # 0.5 (0.1-0.6); MONO % 6.7 % (1.0-6.0); PLATELET COUNT 183 10^3/uL (120.0-450.0); RED CELL DISTRIBUTION WIDTH 14.2 % (11.5-14.5); WHITE BLOOD COUNT 7.8 10^3/ul (4.5-11.0)
[2016-10-18 09:16] VITALS: BP 123/76; PULSE 95; RESP 19; TEMP 98.4; O2SAT 98
[2016-10-18] MEDS: Oxycodone/Acetaminophen 5/325 mg Tab PO PRN (10:34)
[2016-10-18] MEDS: Enoxaparin 40 mg Syringe SC SCH (10:34)
--- NOTE | 2016-10-18 13:05 | CP.PCM.DIS ---
<Inder Barfield - Last Filed: 10/18/16 13:06> Provider - Provider Date of Admission: 10/17/16 01:57 Attending physician: Maribeth Nicole MD Primary care physician: Marilin Collier MD Time Spent in preparation of Discharge (in minutes): 40 Hospital Course - Lab Results Lab Results: Micro Results 10/17/16 09:20 Urine,Clean Catch Urine Culture - Final No Growth (<1,000 CFU/ML) 10/17/16 03:45 Blood-Venous Blood Culture - Preliminary NO GROWTH AFTER 24 HOURS 10/17/16 03:00 Blood-Venous Blood Culture - Preliminary NO GROWTH AFTER 24 HOURS Most Recent Lab Values WBC 7.8 10^3/ul (4.5-11.0) 10/18/16 07:30 RBC 4.39 10^6/uL (3.5-6.1) 10/18/16 07:30 Hgb 13.1 gm/dL (14.0-18.0) L 10/18/16 07:30 Hct 39.8 % (42.0-52.0) L 10/18/16 07:30 MCV 90.7 fL (80.0-105.0) 10/18/16 07:30 MCH 29.8 pg (25.0-35.0) 10/18/16 07:30 MCHC 32.9 g/dl (31.0-37.0) 10/18/16 07:30 RDW 14.2 % (11.5-14.5) 10/18/16 07:30 Plt Count 183 10^3/uL (120.0-450.0) 10/18/16 07:30 MPV 9.7 fl (7.0-11.0) 10/18/16 07:30 Gran % 62.5 % (50.0-68.0) 10/18/16 07:30 Lymph % (Auto) 28.6 % (22.0-35.0) 10/18/16 07:30 [place] % (Auto) 6.7 % (1.0-6.0) H 10/18/16 07:30 Eos % (Auto) 1.9 % (1.5-5.0) 10/18/16 07:30 Baso % (Auto) 0.3 % (0.0-3.0) 10/18/16 07:30 Gran # 4.84 (1.4-6.5) 10/18/16 07:30 Lymph # 2.2 (1.2-3.4) 10/18/16 07:30 [place] # 0.5 (0.1-0.6) 10/18/16 07:30 Eos # 0.2 (0.0-0.7) 10/18/16 07:30 Baso # 0.02 K/mm3 (0.0-2.0) 10/18/16 07:30 pO2 83 mm/Hg (30-55) H 10/17/16 03:50 VBG pH 7.42 (7.32-7.43) 10/17/16 03:50 VBG pCO2 46.0 (40-60) 10/17/16 03:50 VBG HCO3 29.8 mmol/l (21-28) H 10/17/16 03:50 VBG Total CO2 31.2 mmol.L (22-28) H 10/17/16 03:50 VBG O2 Sat (Calc) 97.7 % (40-65) H 10/17/16 03:50 VBG Base Excess 4.5 mmol/L (0.0-2.0) H 10/17/16 03:50 VBG Potassium 3.4 mmol/L (3.6-5.2) L 10/17/16 03:50 Sodium 138.0 mmol/L (132-148) 10/17/16 03:50 Chloride 102.0 mmol/L (98-107) 10/17/16 03:50 Glucose 78 mg/dl (75-110) 10/17/16 03:50 Lactate 1.0 mmol/L (0.7-2.1) 10/17/16 03:50 FiO2 21.0 % 10/17/16 03:50 Sodium 139 mmol/L (132-148) 10/18/16 07:20 Potassium 3.8 mmol/L (3.6-5.0) 10/18/16 07:20 Chloride 106 mmol/L (98-107) 10/18/16 07:20 Carbon Dioxide 26 mmol/L (21-33) 10/18/16 07:20 Anion Gap 11 (10-20) 10/18/16 07:20 BUN 18 mg/dL (7-21) 10/18/16 07:20 Creatinine 0.7 mg/dL (0.5-1.4) 10/18/16 07:20 Est GFR ( Amer) > 60 10/18/16 07:20 Est GFR (Non-Af Amer) > 60 10/18/16 07:20 Random Glucose 78 mg/dL (70-110) 10/18/16 07:20 Hemoglobin A1c 5.5 % (4.2-6.5) 10/17/16 07:00 Calcium 8.4 mg/dL (8.4-10.5) 10/18/16 07:20 Phosphorus 4.7 mg/dL (2.5-4.5) H 10/17/16 07:00 Magnesium 1.9 mg/dL (1.7-2.2) 10/17/16 07:00 Total Bilirubin 0.8 mg/dL (0.2-1.3) 10/18/16 07:20 AST 30 U/L (15-59) 10/18/16 07:20 ALT 42 U/L (7-56) 10/18/16 07:20 Alkaline Phosphatase 46 U/L (38-133) 10/18/16 07:20 Troponin I < 0.01 ng/mL 10/17/16 12:30 NT-Pro-B Natriuret Pep 32.3 pg/mL (0-450) 10/17/16 07:00 Total Protein 6.6 g/dL (5.8-8.3) 10/18/16 07:20 Albumin 3.4 g/dL (3.0-4.8) 10/18/16 07:20 Globulin 3.2 gm/dL 10/18/16 07:20 Albumin/Globulin Ratio 1.1 (1.1-1.8) 10/18/16 07:20 Triglycerides 182 mg/dL (35-160) H 10/17/16 07:00 Cholesterol 200 mg/dL (130-200) 10/17/16 07:00 LDL Cholesterol Direct 109 mg/dL (0-129) 10/17/16 07:00 HDL Cholesterol 56 mg/dL (29-60) 10/17/16 07:00 Procalcitonin < 0.05 NG/ML (0.19-0.49) L 10/17/16 07:00 TSH 3rd Generation 3.27 mIU/mL (0.46-4.68) 10/17/16 07:00 Venous Blood Potassium 3.4 mmol/L (3.6-5.2) L 10/17/16 03:50 Urine Color Yellow (YELLOW) 10/17/16 09:20 Urine Appearance Clear (CLEAR) 10/17/16 09:20 Urine pH 6.0 (4.7-8.0) 10/17/16 09:20 Ur Specific [place] 1.015 (1.005-1.035) 10/17/16 09:20 Urine Protein Negative mg/dL (<30 mg/dL) 10/17/16 09:20 Urine Glucose (UA) Negative mg/dL (NEGATIVE) 10/17/16 09:20 Urine Ketones Negative mg/dL (NEGATIVE) 10/17/16 09:20 Urine Blood Negative (NEGATIVE) 10/17/16 09:20 Urine Nitrate Negative (NEGATIVE) 10/17/16 09:20 Urine Bilirubin Negative (NEGATIVE) 10/17/16 09:20 Urine Urobilinogen 0.2 E.U./dL (<1 E.U./dL) 10/17/16 09:20 Ur Leukocyte Esterase Negative [place]/uL (NEGATIVE) 10/17/16 09:20 Urine RBC 0 - 2 /hpf (0-2) 10/17/16 00:59 Urine WBC Negative /hpf (0-6) 10/17/16 00:59 Ur Epithelial Cells None /hpf (0-5) 10/17/16 00:59 Urine Bacteria Few (NEG) 10/17/16 00:59 - Hospital Course Hospital Course: 25yo male with pmh of chiari malformation, Spina Bifida s/p surgical repairs, Hypertension, Asthma, Anxiety, and Depression who presents c/o generalized weakness, fatigue, leg swelling x 1 week. In the ED basic labwork was done. EKG showed NSR at 79bpm. Pt was found to be dehydrated with BUN of 27. IV fluids was started. Troponin x 3 was negative. PCT was negative. CXR showed no active disease. Pt was sent to the floor for closer monitoring. Pt was continued to be on fluids. US of the extremity was done and was negative. Prior echo aproximatly 3 months ago showed preserved EF and normal LV function. Today pt states that he is doing well. He denies any complaints at this time. He Denies any preston, dizziness, f/c, abd pain, n/v/d. Discharge Exam - Head Exam Head Exam: ATRAUMATIC, NORMAL INSPECTION, NORMOCEPHALIC - Eye Exam Eye Exam: EOMI, Normal appearance, PERRL Pupil Exam: NORMAL ACCOMODATION, PERRL - Respiratory Exam Respiratory Exam: Clear to PA & Lateral. absent: Rales, Rhonchi, Wheezes - Cardiovascular Exam Cardiovascular Exam: REGULAR RHYTHM, RRR, +S1, +S2 - GI/Abdominal Exam GI & Abdominal Exam: Normal Bowel Sounds, Soft. absent: Tenderness - Neurological Exam Neurological exam: Alert, CN II-XII Intact, Normal Gait, Oriented x3, Reflexes Normal - Psychiatric Exam Psychiatric exam: Normal Affect, Normal Mood - Skin Skin Exam: Dry, Intact, Normal Color, Warm Discharge Plan - Discharge Medications Prescriptions: Furosemide [Lasix] 10 mg PO DAILY #30 bottle - Follow Up Plan Condition: IMPROVED Disposition: HOME/ ROUTINE Patient education suggested?: Yes Instructions: Dehydration (DC), Dehydration (GEN), Dyspnea (GEN) Additional Instructions: Follow up with your PMD with in 1-2 days. If your symptoms worsen come back to the ED. Follow up with your Neurosurgery. Referrals: Marilin Collier MD [Primary Care Provider] - <Micaela NORRIS,[facility] - Last Filed: 10/18/16 15:47> Provider - Provider Date of Admission: 10/17/16 01:57 Attending physician: Maribeth Nicole MD Primary care physician: Marilin Collier MD Hospital Course - Lab Results Lab Results: Micro Results 10/17/16 09:20 Urine,Clean Catch Urine Culture - Final No Growth (<1,000 CFU/ML) 10/17/16 03:45 Blood-Venous Blood Culture - Preliminary NO GROWTH AFTER 24 HOURS 10/17/16 03:00 Blood-Venous Blood Culture - Preliminary NO GROWTH AFTER 24 HOURS Most Recent Lab Values WBC 7.8 10^3/ul (4.5-11.0) 10/18/16 07:30 RBC 4.39 10^6/uL (3.5-6.1) 10/18/16 07:30 Hgb 13.1 gm/dL (14.0-18.0) L 10/18/16 07:30 Hct 39.8 % (42.0-52.0) L 10/18/16 07:30 MCV 90.7 fL (80.0-105.0) 10/18/16 07:30 MCH 29.8 pg (25.0-35.0) 10/18/16 07:30 MCHC 32.9 g/dl (31.0-37.0) 10/18/16 07:30 RDW 14.2 % (11.5-14.5) 10/18/16 07:30 Plt Count 183 10^3/uL (120.0-450.0) 10/18/16 07:30 MPV 9.7 fl (7.0-11.0) 10/18/16 07:30 Gran % 62.5 % (50.0-68.0) 10/18/16 07:30 Lymph % (Auto) 28.6 % (22.0-35.0) 10/18/16 07:30 [place] % (Auto) 6.7 % (1.0-6.0) H 10/18/16 07:30 Eos % (Auto) 1.9 % (1.5-5.0) 10/18/16 07:30 Baso % (Auto) 0.3 % (0.0-3.0) 10/18/16 07:30 Gran # 4.84 (1.4-6.5) 10/18/16 07:30 Lymph # 2.2 (1.2-3.4) 10/18/16 07:30 [place] # 0.5 (0.1-0.6) 10/18/16 07:30 Eos # 0.2 (0.0-0.7) 10/18/16 07:30 Baso # 0.02 K/mm3 (0.0-2.0) 10/18/16 07:30 pO2 83 mm/Hg (30-55) H 10/17/16 03:50 VBG pH 7.42 (7.32-7.43) 10/17/16 03:50 VBG pCO2 46.0 (40-60) 10/17/16 03:50 VBG HCO3 29.8 mmol/l (21-28) H 10/17/16 03:50 VBG Total CO2 31.2 mmol.L (22-28) H 10/17/16 03:50 VBG O2 Sat (Calc) 97.7 % (40-65) H 10/17/16 03:50 VBG Base Excess 4.5 mmol/L (0.0-2.0) H 10/17/16 03:50 VBG Potassium 3.4 mmol/L (3.6-5.2) L 10/17/16 03:50 Sodium 138.0 mmol/L (132-148) 10/17/16 03:50 Chloride 102.0 mmol/L (98-107) 10/17/16 03:50 Glucose 78 mg/dl (75-110) 10/17/16 03:50 Lactate 1.0 mmol/L (0.7-2.1) 10/17/16 03:50 FiO2 21.0 % 10/17/16 03:50 Sodium 139 mmol/L (132-148) 10/18/16 07:20 Potassium 3.8 mmol/L (3.6-5.0) 10/18/16 07:20 Chloride 106 mmol/L (98-107) 10/18/16 07:20 Carbon Dioxide 26 mmol/L (21-33) 10/18/16 07:20 Anion Gap 11 (10-20) 10/18/16 07:20 BUN 18 mg/dL (7-21) 10/18/16 07:20 Creatinine 0.7 mg/dL (0.5-1.4) 10/18/16 07:20 Est GFR ( Amer) > 60 10/18/16 07:20 Est GFR (Non-Af Amer) > 60 10/18/16 07:20 Random Glucose 78 mg/dL (70-110) 10/18/16 07:20 Hemoglobin A1c 5.5 % (4.2-6.5) 10/17/16 07:00 Calcium 8.4 mg/dL (8.4-10.5) 10/18/16 07:20 Phosphorus 4.7 mg/dL (2.5-4.5) H 10/17/16 07:00 Magnesium 1.9 mg/dL (1.7-2.2) 10/17/16 07:00 Total Bilirubin 0.8 mg/dL (0.2-1.3) 10/18/16 07:20 AST 30 U/L (15-59) 10/18/16 07:20 ALT 42 U/L (7-56) 10/18/16 07:20 Alkaline Phosphatase 46 U/L (38-133) 10/18/16 07:20 Troponin I < 0.01 ng/mL 10/17/16 12:30 NT-Pro-B Natriuret Pep 32.3 pg/mL (0-450) 10/17/16 07:00 Total Protein 6.6 g/dL (5.8-8.3) 10/18/16 07:20 Albumin 3.4 g/dL (3.0-4.8) 10/18/16 07:20 Globulin 3.2 gm/dL 10/18/16 07:20 Albumin/Globulin Ratio 1.1 (1.1-1.8) 10/18/16 07:20 Triglycerides 182 mg/dL (35-160) H 10/17/16 07:00 Cholesterol 200 mg/dL (130-200) 10/17/16 07:00 LDL Cholesterol Direct 109 mg/dL (0-129) 10/17/16 07:00 HDL Cholesterol 56 mg/dL (29-60) 10/17/16 07:00 Procalcitonin < 0.05 NG/ML (0.19-0.49) L 10/17/16 07:00 TSH 3rd Generation 3.27 mIU/mL (0.46-4.68) 10/17/16 07:00 Venous Blood Potassium 3.4 mmol/L (3.6-5.2) L 10/17/16 03:50 Urine Color Yellow (YELLOW) 10/17/16 09:20 Urine Appearance Clear (CLEAR) 10/17/16 09:20 Urine pH 6.0 (4.7-8.0) 10/17/16 09:20 Ur Specific [place] 1.015 (1.005-1.035) 10/17/16 09:20 Urine Protein Negative mg/dL (<30 mg/dL) 10/17/16 09:20 Urine Glucose (UA) Negative mg/dL (NEGATIVE) 10/17/16 09:20 Urine Ketones Negative mg/dL (NEGATIVE) 10/17/16 09:20 Urine Blood Negative (NEGATIVE) 10/17/16 09:20 Urine Nitrate Negative (NEGATIVE) 10/17/16 09:20 Urine Bilirubin Negative (NEGATIVE) 10/17/16 09:20 Urine Urobilinogen 0.2 E.U./dL (<1 E.U./dL) 10/17/16 09:20 Ur Leukocyte Esterase Negative [place]/uL (NEGATIVE) 10/17/16 09:20 Urine RBC 0 - 2 /hpf (0-2) 10/17/16 00:59 Urine WBC Negative /hpf (0-6) 10/17/16 00:59 Ur Epithelial Cells None /hpf (0-5) 10/17/16 00:59 Urine Bacteria Few (NEG) 10/17/16 00:59 Attending/Attestation - Attestation I have personally seen and examined this patient.: Yes I have fully participated in the care of the patient.: Yes I have reviewed all pertinent clinical information, including history, physical exam and plan: Yes Notes (Text): 10/18/16 15:42 Patient was seen and examined with medical record librarian .Agreed with resident assessment and plan. 25yo male with PMH of chiari malformation, Spina Bifida s/p surgical repairs, Hypertension, Asthma, Anxiety, and Depression was admitted with history of generalized weakness, .Patient is afebrile, there is no sign of infection, he was mildly dehydrated , was given IV fluid, renal functins are stable.Patient last Echo 07/09 was reviewed , has normal Left ventricular systolic function, .Patient has mild leg edema , his IV fluid has been discontinued, he will be restarted on his home dose of lasix.He is ambulatory.There is no dyspnea on exertion.He will be discharged home and will follow up with PCP. Management plan was discussed in detail with patient Education was provided.
== END 2016-10-18 14:21 | disposition home or self-care (01) ==
LOC: ED 22:57 → ERH 10-17 01:57 → 3RNO 10-17 02:41
PROVIDERS: ADMIT Internal Medicine; ATTEND Internal Medicine
DX: E86.0 Dehydration (principal); J45.909 Unspecified asthma, uncomplicated; I10 Essential (primary) hypertension; F41.9 Anxiety disorder, unspecified; F32.9 Major depressive disorder, single episode, unspecified; E66.01 Morbid (severe) obesity due to excess calories; Z68.44 Body mass index [BMI] 60.0-69.9, adult; Z87.728 Personal history of other specified (corrected) congenital malformations of nervous system and sense organs; Z87.891 Personal history of nicotine dependence
CPT/HCPCS: 36415; 71010; 80053; 80061; 81001; 81003; 82803; 83036; 83735; 83880; 84100; 84145; 84443; 84484; 85025; 87040; 87086; 93005; 93970; 99281; C9113; G0378; J1650; J7040

== ENCOUNTER 2016-12-25 20:50 | Observation (INO) | payer MEDICAID ==
[2016-12-25 20:51] VITALS: BMI 63.4
--- NOTE | 2016-12-25 21:53 | ED PDOC ---
Arrival/HPI - General Chief Complaint: Back Pain Time Seen by Provider: 12/25/16 21:20 Historian: Patient - History of Present Illness Narrative History of Present Illness (Text): 12/25/16 21:23 This 25 year old male former smoker, whose past medical history includes morbid obesity, chiari malformation, spina bifidia with surgical repair, hypertension, asthma, and anxiety, who presents to the Emergency department complaining of worsening lower back pain x 2 days. Patient also noted a mild JONES. Patient denies fever, sob, cp, abdominal pain, urinary symptoms, /GI incontinence, urinary retention, hematuria, rectal bleeding, recent travel, dizziness, or recent trauma. Time/Duration: Other (2 days) Context: Home Past Medical History - Provider Review Nursing Documentation Reviewed: Yes - Past History Past History: No Previous - Infectious Disease Hx of Infectious Diseases: None - Tetanus Immunization Tetanus Immunization: Unknown - Cardiac Hx Cardiac Disorders: Yes Hx Hypertension: Yes - Pulmonary Hx Respiratory Disorders: Yes Hx Asthma: Yes Hx Pneumonia: Yes - Neurological Hx Neurological Disorder: Yes Hx Migraine: Yes - HEENT Hx HEENT Disorder: Yes (budd neal syndrome) - Renal Hx Renal Disorder: No Hx Dialysis: No Hx Kidney Stones: No Hx Neurogenic Bladder: No Hx Pyelonephritis: No Hx Renal Cancer: No Hx Renal Failure: No - Endocrine/Metabolic Hx Endocrine Disorders: No Hx Adrenal Cancer: No Hx Diabetes Insipidus: No Hx Diabetes Mellitus Type 1: No Hx Diabetes Mellitus Type 2: No Hx Hyperthyroidism: No Hx Hypothyroidism: No Hx Systemic Lupus Erythematosus: No - Hematological/Oncological Hx Blood Disorders: No Hx AIDS: No Hx Anemia: No Hx Cancer: No Hx Chemotherapy: No Hx Cirrhosis: No Hx Hemophilia: No Hx Hepatitis A: No Hx Hepatitis B: No Hx Hepatitis C: No Hx Metastasis: No Hx Shingles: No Hx Sickle Cell Disease: No Hx Unexplained Bleeding: No - Integumentary Hx Dermatological Disorder: No Hx Basal Cell Carcinoma: No Hx Eczema: No Hx Melanoma: No Hx Psoriasis: No Hx Squamous Cell Carcinoma: No - Musculoskeletal/Rheumatological Hx Musculoskeletal Disorders: Yes (spina bifida) Hx Falls: No - Gastrointestinal Hx Gastrointestinal Disorders: Yes (frequently has gas pain after eating) - Genitourinary/Gynecological Hx Genitourinary Disorders: No Hx Hematuria: No Hx Incontinence: No Hx Prostate Problems: No Hx Sexually Transmitted Diseases: No Hx Urinary Tract Infection: No - Psychiatric Hx Psychophysiologic Disorder: Yes Hx Anxiety: Yes Hx Depression: Yes Hx Emotional Abuse: No Hx Physical Abuse: No Hx Substance Use: No - Past Surgical History Past Surgical History: No Previous - Surgical History Other/Comment: brain stem surgery - Anesthesia Hx Anesthesia: No Hx Anesthesia Reactions: No Hx Malignant Hyperthermia: No - Suicidal Assessment Feels Threatened In Home Enviroment: No Family/Social History - Physician Review Nursing Documentation Reviewed: Yes Family/Social History: Other (non-contributory) Smoking Status: Former Smoker Hx Alcohol Use: No Hx Substance Use: No Hx Substance Use Treatment: No Allergies/Home Meds Allergies/Adverse Reactions: Allergies furosemide [From Lasix] Allergy (Verified 12/25/16 20:58) RASH Home Medications: Home Meds Medication Instructions Recorded Confirmed Hydroxyzine HCl 1 tab PO Q6H PRN 07/09/16 12/25/16 Metoprolol Succinate [Toprol XL] 100 mg PO DAILY 12/25/16 12/25/16 Oxycodone HCl/Acetaminophen 1 tab PO BID 12/25/16 12/25/16 [Oxycodone-Acetaminophen 5-325] Review of Systems - Review of Systems Constitutional: Normal. absent: Fatigue, Weight Change, Fevers Eyes: Normal ENT: Normal. absent: Hearing Changes, Sore Throat, Rhinorrhea Respiratory: Normal. absent: SOB, Cough Cardiovascular: Normal. absent: Chest Pain, Palpitations Gastrointestinal: Normal. absent: Abdominal Pain, Nausea, Vomiting Genitourinary Male: Frequency. absent: Dysuria, Hematuria, Urinary Output Changes Musculoskeletal: Back Pain. absent: Arthralgias, Neck Pain, Joint Swelling, Myalgias Skin: Normal Neurological: Headache. absent: Dizziness, Focal Weakness, Gait Changes, Speech Changes, Facial Droop, Disequilibrium, Seizure Endocrine: Normal Hemo/Lymphatic: Normal Psychiatric: Normal Physical Exam Vital Signs Temp Pulse Resp BP Pulse Ox 12/25/16 20:53 98.8 F 86 16 173/95 H 96 Temperature: Afebrile Blood Pressure: Normal Pulse: Regular Respiratory Rate: Normal Appearance: Positive for: Well-Appearing, Non-Toxic, Comfortable Pain Distress: None Mental Status: Positive for: Alert and Oriented X 3 - Systems Exam Head: Present: Atraumatic, Normocephalic Pupils: Present: PERRL Extroacular Muscles: Present: EOMI Conjunctiva: Present: Normal Mouth: Present: Moist Mucous Membranes Neck: Present: Normal Range of Motion Respiratory/Chest: Present: Clear to Auscultation, Good Air Exchange. No: Respiratory Distress, Accessory Muscle Use Cardiovascular: Present: Regular Rate and Rhythm, Normal S1, S2. No: Murmurs Abdomen: Present: Normal Bowel Sounds. No: Tenderness, Distention, Peritoneal Signs Back: Present: Normal Inspection, Paraspinal Tenderness (mild b/l paravertebral tenderness. No vertebral step off. No vertebral point tenderness. Midline scar seen on lower back. No erythema, or skin rash). No: CVA Tenderness, Midline Tenderness, Pain with Leg Raise Upper Extremity: Present: Normal Inspection, Normal ROM, NORMAL PULSES, Neurovascularly Intact, Capillary Refill < 2s. No: Cyanosis, Edema Lower Extremity: Present: Normal Inspection, NORMAL PULSES, Normal ROM, Neurovascularly Intact, Capillary Refill < 2 s. No: Edema Neurological: Present: GCS=15, CN II-XII Intact, Speech Normal, Motor Func Grossly Intact, Normal Sensory Function, Normal Cerebellar Funct Skin: Present: Warm, Dry, Normal Color. No: Rashes Psychiatric: Present: Alert, Oriented x 3, Normal Insight, Normal Concentration Medical Decision Making ED Course and Treatment: 12/25/16 22:50 Patient stated pain persist despite Toradol IVP. 12/26/16 00:01 Patient continue with back pain. Dilaudid 1 mg was ordered. 12/26/16 00:[address] Pena regarding patient intractable back pain. He agrees with plan for observation. Re-evaluation Time: 00:53 Reassessment Condition: Re-examined, Improving,but remains with symptoms - Lab Interpretations Lab Results: 12/25/16 22:00 12/25/16 22:00 Lab Results 12/25/16 22:00: Sodium 140, Potassium 4.8, Chloride 103, Carbon Dioxide 26, Anion Gap 16, BUN 15, Creatinine 0.9, Est GFR ( Amer) > 60, Est GFR (Non- Af Amer) > 60, Random Glucose 85, Calcium 9.3, Total Bilirubin 0.7, AST 32, ALT 30, Alkaline Phosphatase 46, Total Protein 6.9, Albumin 4.0, Globulin 2.9, Albumin/Globulin Ratio 1.4 12/25/16 22:00: WBC 8.0, RBC 4.13, Hgb 12.2 L, Hct 36.4 L, MCV 88.1, MCH 29.5, MCHC 33.5, RDW 13.3, Plt Count 248, MPV 10.3, Gran % 64.9, Lymph % (Auto) 27.9, [place] % (Auto) 5.1, Eos % (Auto) 1.8, Baso % (Auto) 0.3, Gran # 5.19, Lymph # 2.2 , [place] # 0.4, Eos # 0.1, Baso # 0.02 I have reviewed the lab results: Yes Interpretation: No clinic. lab abnormalty - Medication Orders Current Medication Orders: Discontinued Medications Diphenhydramine HCl (Benadryl) 50 mg PO STAT STA Stop: 12/25/16 23:43 Last Admin: 12/26/16 00:41 Dose: 50 mg Hydromorphone HCl (Dilaudid) 1 mg IVP STAT STA Stop: 12/26/16 00:37 Last Admin: 12/26/16 00:42 Dose: 1 mg Sodium Chloride (Sodium Chloride 0.9%) 1,000 mls @ 999 mls/hr IV .Q1H1M STA Stop: 12/25/16 22:54 Last Admin: 12/26/16 00:41 Dose: 999 mls/hr Ketorolac Tromethamine (Toradol) 30 mg IVP STAT STA Stop: 12/25/16 21:55 Last Admin: 12/25/16 22:30 Dose: 30 mg Metoclopramide HCl (Reglan) 10 mg PO STAT STA Stop: 12/25/16 23:42 Last Admin: 12/26/16 00:41 Dose: 10 mg Disposition/Present on Arrival - Present on Arrival Any Indicators Present on Arrival: No History of DVT/PE: No History of Uncontrolled Diabetes: No Urinary Catheter: No History of Decub. Ulcer: No History Surgical Site Infection Following: None - Disposition Have Diagnosis and Disposition been Completed?: Yes Diagnosis: Intractable back pain Disposition: HOSPITALIZED Disposition Time: 00:53 Patient Plan: Admission Condition: STABLE Forms: [employer] (Urdu)
[2016-12-25] MEDS ORDERED: Sodium Chloride 0.9% 1,000 ML IV STA (21:54)
[2016-12-25] MEDS ORDERED: DiphenhydrAMINE 50 mg/ml Inj IVP STA (21:55)
[2016-12-25 22:17] LABS: BASO # 0.02 K/mm3 (0.0-2.0); BASO % 0.3 % (0.0-3.0); EOS # 0.1 (0.0-0.7); EOS % 1.8 % (1.5-5.0); GRAN # 5.19 (1.4-6.5); GRAN % 64.9 % (50.0-68.0); HEMATOCRIT 36.4 % (42.0-52.0); LYMPH # 2.2 (1.2-3.4); LYMPH % 27.9 % (22.0-35.0); MEAN CELL VOLUME 88.1 fl (80.0-105.0); MEAN CORPUSCULAR HEMOGLOBIN 29.5 pg (25.0-35.0); MEAN CORPUSCULAR HGB CONC 33.5 g/dl (31.0-37.0); MEAN PLATELET VOLUME 10.3 fl (7.0-11.0); MONO # 0.4 (0.1-0.6); MONO % 5.1 % (1.0-6.0); RED CELL DISTRIBUTION WIDTH 13.3 % (11.5-14.5)
[2016-12-25 22:26] LABS: ALB/GLOB RATIO 1.4 (1.1-1.8); ALKALINE PHOSPHATASE 46 U/L (38-126); ALT/SGPT 30 U/L (7-56); AST/SGOT 32 U/L (17-59); BILIRUBIN,TOTAL 0.7 mg/dL (0.2-1.3); BLOOD UREA NITROGEN 15 mg/dL (7-21); CALCIUM 9.3 mg/dL (8.4-10.5); CARBON DIOXIDE 26 mmol/L (21-33); CHLORIDE 103 mmol/L (98-107); GFR AFRICAN-AMERICAN > 60; GLUCOSE,RANDOM 85 mg/dL (70-110); SODIUM 140 mmol/L (132-148); TOTAL PROTEIN 6.9 g/dL (5.8-8.3)
[2016-12-25 22:27] LABS: POTASSIUM 4.8 mmol/L (3.6-5.0)
[2016-12-25] MEDS ORDERED: HYDROmorphone 1 mg/ml ISec IVP STA (22:49)
[2016-12-25] MEDS ORDERED: HYDROmorphone 1 mg/ml ISec SC STA (23:50)
[2016-12-26] MEDS ORDERED: HYDROmorphone 1 mg/ml ISec IVP STA (00:36)
--- NOTE | 2016-12-26 04:50 | CP.PCM.HP ---
<Alirio Fleix - Last Filed: 12/26/16 05:00> History of Present Illness - History of Present Illness History of Present Illness: IM H&P for Hospitalist Service CC: worsening Back pain HPI: This is a 25 yo M with PMH of chiari malformation, Spina Bifida s /p surgical repair, HTN, Asthma, Anxiety, and Depression who presents with complaint of acutely worsening back pain x 3 days. As per pt, pain has reached a point where attempted to double up on his home pain meds to attempt to manage , but did not experience any significant relief. Patient reports worsening of back pain and later developing sensation of face pressure pushing from centrally out, but denies discharge or impair nasal breathing. Despite patient' s report of worsening back pain that is normal an 8-9/10 intensity, and a 5-6/ 10 intensity at time of exam, patient was witnessed walking in the ED without overt difficulty or distress, and when seen on the floors, he was sleeping soundly without any additional pain medication being received. He reports that his PMD's clinic no longer can prescribe him new pain medications due to [place] state law, so he is trying to establish with a pain management doctor. Denies vision changes, rhinorrhea, epistaxis, altered smell, impaired nasal breathing, fevers/chills, chest pain, shortness of breath, diarrhea/constipation, nausea/ emesis, focal weakness, new parethesias (baseline decreased sensation in bilteral LE), or dysuria/hematuria. All other ROS in 12-point system review were negative. PMH: as above PSH: Chiari malformation surgery (age 7), x2 Spina bifida repair surgeries (1995 , 1996) SHx: Former tobacco user (quit > 1 yr ago, 1 ppd x8 years), Social EtOH, denies illicits/IVDA FHx: unspecified cardiac disease (cousin) PMD: Dr. Collier Present on Admission - Present on Admission Any Indicators Present on Admission: No History of DVT/PE: No History of Uncontrolled Diabetes: No Urinary Catheter: No Decubitus Ulcer Present: No Review of Systems - Review of Systems All systems: reviewed and no additional remarkable complaints except (as per HPI ) Past Patient History - Infectious Disease Hx of Infectious Diseases: None - Tetanus Immunizations Tetanus Immunization: Unknown - Past Social History Smoking Status: Former Smoker - CARDIAC Hx Hypertension: Yes - PULMONARY Hx Asthma: Yes - NEUROLOGICAL Other/Comment: spina bifida with sx repair, brain stem sx - HEENT Hx HEENT Problems: Yes (budd neal syndrome) - RENAL Hx Chronic Kidney Disease: No Hx Dialysis: No Hx Kidney Stones: No Hx Neurogenic Bladder: No Hx Pyelonephritis: No Hx Renal (Kidney) Cancer: No Hx Renal Failure: No - ENDOCRINE/METABOLIC Other/Comment: morbid obesity - HEMATOLOGICAL/ONCOLOGICAL Hx Blood Disorders: No Hx AIDS: No Hx Anemia: No Hx Cancer: No Hx Chemotherapy: No Hx Cirrhosis: No Hx Hemophilia: No Hx Hepatitis A: No Hx Hepatitis B: No Hx Hepatitis C: No Hx Metastesis: No Hx Shingles: No Hx Sickle Cell Disease: No Hx Unexplained Bleeding: No - INTEGUMENTARY Hx Dermatological Problems: No Hx Basil Cell: No Hx Eczema: No Hx Melanoma: No Hx Psoriasis: No Hx Squamous Cell: No - MUSCULOSKELETAL/RHEUMATOLOGICAL Hx Back Pain: Yes Hx Falls: No - GASTROINTESTINAL Hx Gastrointestinal Disorders: Yes (frequently has gas pain after eating) - GENITOURINARY/GYNECOLOGICAL Hx Genitourinary Disorders: No Hx Hematuria: No Hx Incontinence: No Hx Prostate Problems: No Hx Sexually Transmitted Disorders: No Hx Urinary Tract Infection: No - PSYCHIATRIC Hx Anxiety: Yes Hx Depression: Yes Hx Substance Use: No - SURGICAL HISTORY Hx Surgeries: Yes (spina bifida sx repair, brain stem sx) - ANESTHESIA Hx Anesthesia: No Hx Anesthesia Reactions: No Hx Malignant Hyperthermia: No Meds Allergies/Adverse Reactions: Allergies Allergy/AdvReac Type Severity Reaction Status Date / Time furosemide [From Lasix] Allergy RASH Verified 12/25/16 20:58 Physical Exam - Constitutional Appears: Well, Non-toxic, No Acute Distress, Other (soundly sleeping in room without difficulty or distress when going to examine) - Head Exam Head Exam: ATRAUMATIC, NORMAL INSPECTION, NORMOCEPHALIC - Eye Exam Eye Exam: EOMI, Normal appearance. absent: Conjunctival injection, Scleral icterus Pupil Exam: absent: Irregular, Unequal - ENT Exam ENT Exam: Mucous Membranes Moist Additional comments: Tenderness/Fullness reported at ethmoid sinus sites, not worsened with palpation , no bogginess or fullness palpated - Neck Exam Neck exam: Positive for: Full Rom - Respiratory Exam Respiratory Exam: Decreased Breath Sounds (mildly decreased breath sounds in all gross 2/2 body habitus), Clear to Auscultation Bilateral, NORMAL BREATHING PATTERN. absent: Accessory Muscle Use, Chest Wall Tenderness, Prolonged Expiratory Phase, Rales, Rhonchi, Wheezes, Respiratory Distress - Cardiovascular Exam Cardiovascular Exam: REGULAR RHYTHM, RRR, +S1, +S2. absent: Bradycardia, Tachycardia, Irregular Rhythm, +S4 - GI/Abdominal Exam GI & Abdominal Exam: Normal Bowel Sounds, Soft. absent: Diminished Bowel Sounds , Distended (morbidly obese, but not distended), Firm, Guarding, Hyperactive Bowel Sounds, Hypoactive Bowel Sounds, Rigid, Tenderness - Extremities Exam Extremities exam: Positive for: pedal edema (+1 pitting edema in bilateral LE up to knees). Negative for: calf tenderness, joint swelling, tenderness - Back Exam Back exam: absent: CVA tenderness (L), CVA tenderness (R) Additional comments: Lumbar surgical site with healed scar, no fluctuance/erythema/edema at site of healed scar - Neurological Exam Neurological exam: Alert, Normal Gait (witnessed walking into the ED without overt gait disturbance or difficulty), Oriented x3 - Psychiatric Exam Psychiatric exam: Normal Affect, Normal Mood - Skin Skin Exam: Dry, Intact, Normal Color, Warm Results - Vital Signs Recent Vital Signs: Last Vital Signs Temp 97.8 F 12/26/16 02:34 Pulse 89 12/26/16 02:34 Resp 20 12/26/16 02:34 BP 148/88 12/26/16 02:34 Pulse Ox 96 12/25/16 20:53 - Labs Result Diagrams: 12/25/16 22:00 12/25/16 22:00 Assessment & Plan - Assessment and Plan (Free Text) Assessment: This is a 25 yo M with PMH of chiari malformation, Spina Bifida s/p surgical repair, HTN, Asthma, Anxiety, and Depression who presents with complaint of acutely worsening back pain x 3 days. He is being worked up for worsening back pain and sinus tenderness. Plan: 1) Back pain -chronic problem, likely 2/2 spina bifida s/p surgery vs inadequately controlled vs pain-seeking behavior -seen ambulating in the ED without any discernable issue, and when awoken from sleep, pain is described as 5-6/10 while lying in bed despite sleeping and snoring ~2 minutes prior; more likely pain-seeking behavior -CT lumbar spine ordered to assess for any acute changes -Continue home pain regimen, Tramadol 50mg PO TID PRN for breaththrough pain -PT/OT -As per discussion with attending, pt is pending bariatric surgery, to loose weight, so he can undergo a second spinal sugery 2) Facial pressure -r/o sinusitis or sinus obstruction -CT sinuses ordered, f/u -not currently experiencing discharge or rhinnorhea -continue prn hydroxyzine 3) Hx HTN -continue home losartan-hctz, metoprolol 4) Asthma -continue home hydroxyzine prn 5) Anxiety -continue home prozac Dispo: Med/Surg, pending CT scans and improved pain control FEN: Heart-healthy Access: Peripheral IV Consults: N/A Ppx: Pepcid for GI, Heparin SC for DVT Patient reviewed and discussed with attending, Dr. Pena. Decision To Admit - Pt Status Changed To: Hospital Disposition Of: Observation - . Bed Request Type: Med/Surg <Suleiman Pena - Last Filed: 12/26/16 06:08> Results - Vital Signs Recent Vital Signs: Last Vital Signs Temp 97.8 F 12/26/16 02:34 Pulse 89 12/26/16 02:34 Resp 20 12/26/16 02:34 BP 148/88 12/26/16 02:34 Pulse Ox 96 12/25/16 20:53 - Labs Result Diagrams: 12/25/16 22:00 12/25/16 22:00 Attending/Attestation - Attestation I have personally seen and examined this patient.: Yes I have fully participated in the care of the patient.: Yes I have reviewed all pertinent clinical information: Yes Notes (Text): 12/26/16 05:53 Patient was seen when he was in bed # 570-02. Agree with history, physical examination, assessment and plan. States that he has pressure in sinuses, headache,feeling cold and has chills for 2-3 days. Has allergies to Robitussin as a kid , no probelm with robitussin in later life , lasix, States that he was scheduled to go for bariatric surgery on 01/19/17. Has past history of PNA, migraine,family history of breast cancer,ashtma,uses marijuana twice a year, uses alcohol twice a year, had left ankle hair line fracture, had sinus infection x 2 last year, has history of panic attacks, had seizure multiple times when he was young after he had first head surgery at age of 5 years,has history of anger problem,history of ADHD at age 13 years,had teeth extraction in June 2016.
[2016-12-26 08:23] LABS: BASO # 0.01 K/mm3 (0.0-2.0); BASO % 0.2 % (0.0-3.0); EOS # 0.2 (0.0-0.7); EOS % 2.4 % (1.5-5.0); GRAN # 3.69 (1.4-6.5); GRAN % 55.7 % (50.0-68.0); HEMATOCRIT 34.8 % (42.0-52.0); LYMPH # 2.4 (1.2-3.4); LYMPH % 35.4 % (22.0-35.0); MEAN CELL VOLUME 87.9 fl (80.0-105.0); MEAN PLATELET VOLUME 10.2 fl (7.0-11.0); MONO # 0.4 (0.1-0.6); MONO % 6.3 % (1.0-6.0); RED CELL DISTRIBUTION WIDTH 13.3 % (11.5-14.5); WHITE BLOOD COUNT 6.6 10^3/ul (4.5-11.0)
[2016-12-26 08:37] LABS: ALB/GLOB RATIO 1.2 (1.1-1.8); ALKALINE PHOSPHATASE 53 U/L (38-126); ALT/SGPT 29 U/L (7-56); AST/SGOT 23 U/L (17-59); BILIRUBIN,TOTAL 0.5 mg/dL (0.2-1.3); BLOOD UREA NITROGEN 15 mg/dL (7-21); CALCIUM 8.8 mg/dL (8.4-10.5); CARBON DIOXIDE 28 mmol/L (21-33); CHLORIDE 105 mmol/L (98-107); GFR AFRICAN-AMERICAN > 60; GLUCOSE,RANDOM 83 mg/dL (70-110); MAGNESIUM 1.9 mg/dL (1.7-2.2); PHOSPHOROUS 5.8 mg/dL (2.5-4.5); POTASSIUM 4.1 mmol/L (3.6-5.0); SODIUM 142 mmol/L (132-148); TOTAL PROTEIN 6.9 g/dL (5.8-8.3)
--- NOTE | 2016-12-26 10:48 | CP.PCM.PN ---
Subjective - Date & Time of Evaluation Date of Evaluation: 12/26/16 Time of Evaluation: 10:43 - Subjective Subjective: pt previously seen in consult in June He had drainage which was chronic from his back at that time I told him that we would not be able to help him as he would be best served by seeing a pediatric neurosurgeon who routinely deals with myleo-meningocele Consideration of surgery on his low back would best be done by someone who has experience with this deformity This is not commonly seen by an adult general neurosurgeon Reccomend [id number] to the [facility] where there is a pediatric neurosurgeon on staff Objective - Vital Signs/Intake and Output Vital Signs (last 24 hours): Temp Pulse Resp BP Pulse Ox 98.2 F 75 20 112/57 L 94 L 12/26/16 08:00 12/26/16 08:00 12/26/16 08:00 12/26/16 08:00 12/26/16 08:00 - Medications Medications: Current Medications Famotidine (Pepcid) 20 mg PO BID KENY Fluoxetine HCl (Prozac) 20 mg PO DAILY [facility] Heparin Sodium (Porcine) (Heparin) 5,000 units SC Q8 KENY PRN Reason: Protocol Last Admin: 12/26/16 06:58 Dose: 5,000 units Hydrochlorothiazide (Hydrodiuril) 25 mg PO DAILY KENY Hydroxyzine HCl (Atarax) 25 mg PO Q6H PRN PRN Reason: Anxiety Losartan Potassium (Cozaar) 100 mg PO DAILY KENY Metoprolol Succinate (Toprol Xl) 100 mg PO DAILY [facility] Oxycodone/Acetaminophen (Percocet 5/325 Mg Tab) 1 tab PO BID KENY Stop: 12/29/16 10:01 Tramadol HCl (Ultram) 50 mg PO TID PRN PRN Reason: Breakthrough pain - Labs Labs: 12/26/16 08:10 12/26/16 08:10
[2016-12-26 11:21] LABS: URINE BILIRUBIN NEGATIVE (NEGATIVE); URINE BLOOD NEGATIVE (NEGATIVE); URINE COLOR YELLOW (YELLOW); URINE GLUCOSE (UA) NEGATIVE (NEGATIVE); URINE KETONE NEGATIVE (NEGATIVE); URINE LEUKOCYTE ESTERASE SMALL Leu/uL (NEGATIVE); URINE PROTEIN NEGATIVE mg/dL (<30 mg/dL); URINE UROBILINOGEN 0.2 E.U./dL (<1 E.U./dL)
[2016-12-26 11:22] LABS: URINE APPEARANCE CLEAR (CLEAR)
[2016-12-26 11:26] LABS: URINE RBC 0 - 2 /hpf (0-2)
[2016-12-26] MEDS: Oxycodone/Acetaminophen 5/325 mg Tab PO SCH ×2 (11:36→17:30)
[2016-12-26] MEDS: Metoprolol Succinate 100 mg XL Tab PO SCH (11:37)
[2016-12-27 07:11] LABS: ALB/GLOB RATIO 1.1 (1.1-1.8); ALKALINE PHOSPHATASE 53 U/L (38-126); ALT/SGPT 30 U/L (7-56); AST/SGOT 20 U/L (17-59); BILIRUBIN,TOTAL 0.8 mg/dL (0.2-1.3); BLOOD UREA NITROGEN 17 mg/dL (7-21); CALCIUM 9.2 mg/dL (8.4-10.5); CARBON DIOXIDE 29 mmol/L (21-33); CHLORIDE 102 mmol/L (95-110); GFR AFRICAN-AMERICAN > 60; GLUCOSE,RANDOM 88 mg/dL (70-110); MAGNESIUM 1.8 mg/dL (1.7-2.2); PHOSPHOROUS 6.2 mg/dL (2.5-4.5); POTASSIUM 4.5 mmol/L (3.6-5.0); SODIUM 142 mmol/L (132-148); TOTAL PROTEIN 7.5 g/dL (5.8-8.3)
[2016-12-27 07:14] LABS: BASO # 0.02 K/mm3 (0.0-2.0); BASO % 0.3 % (0.0-3.0); EOS # 0.2 (0.0-0.7); EOS % 2.7 % (1.5-5.0); GRAN # 4.16 (1.4-6.5); GRAN % 55.2 % (50.0-68.0); HEMATOCRIT 36.2 % (42.0-52.0); LYMPH # 2.6 (1.2-3.4); LYMPH % 34.9 % (22.0-35.0); MEAN CELL VOLUME 88.3 fl (80.0-105.0); MEAN CORPUSCULAR HGB CONC 32.9 g/dl (31.0-37.0); MEAN PLATELET VOLUME 10.5 fl (7.0-11.0); MONO # 0.5 (0.1-0.6); MONO % 6.9 % (1.0-6.0); RED CELL DISTRIBUTION WIDTH 13.2 % (11.5-14.5); WHITE BLOOD COUNT 7.5 10^3/ul (4.5-11.0)
[2016-12-27 07:54] VITALS: O2SAT 97
[2016-12-27] MEDS: Metoprolol Succinate 100 mg XL Tab PO SCH (09:05)
[2016-12-27] MEDS: Oxycodone/Acetaminophen 5/325 mg Tab PO SCH ×2 (09:10→13:27)
[2016-12-27 16:07] VITALS: BP 146/92; PULSE 80; RESP 20; TEMP 98.2
--- NOTE | 2016-12-27 17:06 | CP.PCM.DIS ---
Provider - Provider Date of Admission: 12/26/16 00:54 Attending physician: Maribeth Nicole MD Time Spent in preparation of Discharge (in minutes): 45 Hospital Course - Lab Results Lab Results: Most Recent Lab Values WBC 7.5 10^3/ul (4.5-11.0) 12/27/16 06:45 RBC 4.10 10^6/uL (3.5-6.1) 12/27/16 06:45 Hgb 11.9 g/dL (14.0-18.0) L 12/27/16 06:45 Hct 36.2 % (42.0-52.0) L 12/27/16 06:45 MCV 88.3 fl (80.0-105.0) 12/27/16 06:45 MCH 29.0 pg (25.0-35.0) 12/27/16 06:45 MCHC 32.9 g/dl (31.0-37.0) 12/27/16 06:45 RDW 13.2 % (11.5-14.5) 12/27/16 06:45 Plt Count 241 10^3/uL (120.0-450.0) 12/27/16 06:45 MPV 10.5 fl (7.0-11.0) 12/27/16 06:45 Gran % 55.2 % (50.0-68.0) 12/27/16 06:45 Lymph % (Auto) 34.9 % (22.0-35.0) 12/27/16 06:45 [place] % (Auto) 6.9 % (1.0-6.0) H 12/27/16 06:45 Eos % (Auto) 2.7 % (1.5-5.0) 12/27/16 06:45 Baso % (Auto) 0.3 % (0.0-3.0) 12/27/16 06:45 Gran # 4.16 (1.4-6.5) 12/27/16 06:45 Lymph # 2.6 (1.2-3.4) 12/27/16 06:45 [place] # 0.5 (0.1-0.6) 12/27/16 06:45 Eos # 0.2 (0.0-0.7) 12/27/16 06:45 Baso # 0.02 K/mm3 (0.0-2.0) 12/27/16 06:45 Sodium 142 mmol/L (132-148) 12/27/16 06:45 Potassium 4.5 mmol/L (3.6-5.0) 12/27/16 06:45 Chloride 102 mmol/L (95-110) 12/27/16 06:45 Carbon Dioxide 29 mmol/L (21-33) 12/27/16 06:45 Anion Gap 16 (10-20) 12/27/16 06:45 BUN 17 mg/dL (7-21) 12/27/16 06:45 Creatinine 1.0 mg/dL (0.5-1.4) 12/27/16 06:45 Est GFR ( Amer) > 60 12/27/16 06:45 Est GFR (Non-Af Amer) > 60 12/27/16 06:45 Random Glucose 88 mg/dL (70-110) 12/27/16 06:45 Calcium 9.2 mg/dL (8.4-10.5) 12/27/16 06:45 Phosphorus 6.2 mg/dL (2.5-4.5) H 12/27/16 06:45 Magnesium 1.8 mg/dL (1.7-2.2) 12/27/16 06:45 Total Bilirubin 0.8 mg/dL (0.2-1.3) 12/27/16 06:45 AST 20 U/L (17-59) 12/27/16 06:45 ALT 30 U/L (7-56) 12/27/16 06:45 Alkaline Phosphatase 53 U/L (38-126) 12/27/16 06:45 Total Protein 7.5 g/dL (5.8-8.3) 12/27/16 06:45 Albumin 4.0 g/dL (3.0-4.8) 12/27/16 06:45 Globulin 3.5 gm/dL 12/27/16 06:45 Albumin/Globulin Ratio 1.1 (1.1-1.8) 12/27/16 06:45 Urine Color Yellow (YELLOW) 12/26/16 11:14 Urine Appearance Clear (CLEAR) 12/26/16 11:14 Urine pH 6.0 (4.7-8.0) 12/26/16 11:14 Ur Specific [place] 1.020 (1.005-1.035) 12/26/16 11:14 Urine Protein Negative mg/dL (<30 mg/dL) 12/26/16 11:14 Urine Glucose (UA) Negative mg/dL (NEGATIVE) 12/26/16 11:14 Urine Ketones Negative mg/dL (NEGATIVE) 12/26/16 11:14 Urine Blood Negative (NEGATIVE) 12/26/16 11:14 Urine Nitrate Negative (NEGATIVE) 12/26/16 11:14 Urine Bilirubin Negative (NEGATIVE) 12/26/16 11:14 Urine Urobilinogen 0.2 E.U./dL (<1 E.U./dL) 12/26/16 11:14 Ur Leukocyte Esterase [place]/uL (NEGATIVE) H 12/26/16 11:14 Urine RBC 0 - 2 /hpf (0-2) 12/26/16 11:14 Urine WBC 2 - 5 /hpf (0-6) 12/26/16 11:14 Ur Epithelial Cells 1 - 3 /hpf (0-5) 12/26/16 11:14 Discharge Exam - Head Exam Head Exam: ATRAUMATIC, NORMAL INSPECTION, NORMOCEPHALIC Discharge Plan - Follow Up Plan Condition: STABLE Disposition: HOME/ ROUTINE Instructions: Chronic Hypertension (DC), How To Wash Your Hands (DC), Back Pain (GEN), Fall Prevention (DC) Additional Instructions: Patient was spoken to this morning, he is recommended to see a neurosurgeon as an outpatient. He should also follow up with his PMD as well. Patient understands the plan and instructions.
== END 2016-12-27 16:24 | disposition home or self-care (01) ==
LOC: ED 20:50 → ERH 12-26 00:54 → 5RSO 12-26 02:34
PROVIDERS: ADMIT Internal Medicine; ATTEND Internal Medicine
DX: M54.5 Low back pain (principal); I10 Essential (primary) hypertension; J45.909 Unspecified asthma, uncomplicated; F41.9 Anxiety disorder, unspecified; F32.9 Major depressive disorder, single episode, unspecified; E66.01 Morbid (severe) obesity due to excess calories; Z68.44 Body mass index [BMI] 60.0-69.9, adult; Z87.891 Personal history of nicotine dependence; Q07.01 Arnold-Chiari syndrome with spina bifida
CPT/HCPCS: 36415; 80053; 81001; 83735; 84100; 85025; 96361; 96374; 96375; 99285; G0378; J1170; J1644; J1885; J7040

== ENCOUNTER 2017-03-06 11:44 | Emergency (ER) | payer MEDICAID ==
[2017-03-06 11:44] VITALS: BMI 63.4
--- NOTE | 2017-03-06 11:49 | ED PDOC ---
Arrival/HPI - General Time Seen by Provider: 03/06/17 11:48 Historian: Patient - History of Present Illness Narrative History of Present Illness (Text): 03/06/17 11:49 26 y/o male, pmh including asthma, allergic to lasix?, c/o rt. foot sole pain x 1 week with no fall or trauma. aching pain, more painful during the morning when stepping on it for few steps, no skin discoloration, no night sweat, no rash, no palpitation, no numbness or tingling, no other medical or psychological complaints. 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) - Renal Hx Renal Disorder: No Hx Dialysis: No Hx Kidney Stones: No Hx Neurogenic Bladder: No Hx Pyelonephritis: No Hx Renal Cancer: No Hx Renal Failure: No - Endocrine/Metabolic Other/Comment: morbid obesity - Hematological/Oncological Hx Blood Disorders: No Hx AIDS: No Hx Anemia: No Hx Cancer: No Hx Chemotherapy: No Hx Cirrhosis: No Hx Hemophilia: No Hx Hepatitis A: No Hx Hepatitis B: No Hx Hepatitis C: No Hx Metastasis: No Hx Shingles: No Hx Sickle Cell Disease: No Hx Unexplained Bleeding: No - Integumentary Hx Dermatological Disorder: No Hx Basal Cell Carcinoma: No Hx Eczema: No Hx Melanoma: No Hx Psoriasis: No Hx Squamous Cell Carcinoma: No - Musculoskeletal/Rheumatological Hx Musculoskeletal Disorders: Yes - Gastrointestinal Hx Gastrointestinal Disorders: Yes (frequently has gas pain after eating) - Genitourinary/Gynecological Hx Genitourinary Disorders: No Hx Hematuria: No Hx Incontinence: No Hx Prostate Problems: No Hx Sexually Transmitted Diseases: No Hx Urinary Tract Infection: No - Psychiatric Hx Anxiety: Yes Hx Depression: Yes Hx Substance Use: No - Past Surgical History Past Surgical History: No Previous - Surgical History Other/Comment: brain stem surgery - Anesthesia Hx Anesthesia: No Hx Anesthesia Reactions: No Hx Malignant Hyperthermia: No - Suicidal Assessment Feels Threatened In Home Enviroment: No Family/Social History - Physician Review Nursing Documentation Reviewed: Yes Family/Social History: Unknown Family HX Smoking Status: Former Smoker Hx Alcohol Use: Yes Hx Substance Use: No Hx Substance Use Treatment: No Allergies/Home Meds Allergies/Adverse Reactions: Allergies furosemide [From Lasix] Allergy (Mild, Verified 03/06/17 11:56) RASH Home Medications: Home Meds Medication Instructions Recorded Confirmed Hydroxyzine HCl 1 tab PO Q6H PRN 07/09/16 03/06/17 Metoprolol Succinate [Toprol XL] 100 mg PO DAILY 12/25/16 03/06/17 Oxycodone HCl/Acetaminophen 1 tab PO BID 12/25/16 03/06/17 [Oxycodone-Acetaminophen 5-325] Review of Systems - Review of Systems Constitutional: absent: Fatigue, Fevers Eyes: absent: Vision Changes ENT: absent: Hearing Changes Respiratory: absent: SOB, Cough Cardiovascular: absent: Chest Pain Gastrointestinal: absent: Abdominal Pain, Nausea, Vomiting Musculoskeletal: Arthralgias, Myalgias. absent: Back Pain, Neck Pain Skin: absent: Rash Neurological: absent: Headache, Dizziness Physical Exam Vital Signs Reviewed: Yes Vital Signs Temp Pulse Resp BP Pulse Ox 03/06/17 12:00 97.7 F 81 19 149/96 H 96 Temperature: Afebrile Blood Pressure: Normal Pulse: Regular Respiratory Rate: Normal Appearance: Positive for: Well-Appearing, Non-Toxic Pain Distress: Severe Mental Status: Positive for: Alert and Oriented X 3 - Systems Exam Head: Present: Atraumatic, Normocephalic Pupils: Present: PERRL Extroacular Muscles: Present: EOMI Conjunctiva: Present: Normal Mouth: Present: Moist Mucous Membranes Neck: Present: Normal Range of Motion Respiratory/Chest: Present: Clear to Auscultation, Good Air Exchange. No: Respiratory Distress, Accessory Muscle Use Cardiovascular: Present: Regular Rate and Rhythm, Normal S1, S2. No: Murmurs Abdomen: Present: Normal Bowel Sounds. No: Tenderness, Distention, Peritoneal Signs Back: Present: Normal Inspection Upper Extremity: Present: Normal Inspection. No: Cyanosis, Edema Lower Extremity: Present: Normal Inspection, Other (RLE: +ttp on the sole of the foot on the plantar sole region, skin intact, no erythematous or skin discoloration, no alopecia or cold temperature, no signs of septic joint, no signs of arterial or venous insufficiency, FROM without limitation, sensation intact, motor 5/5, negative lucian and galvan signs, good nail growth without any hyper or hypotrophy, +DPPT pulses, capillay refill< 2 seconds, neurovascular intact. ). No: Edema Neurological: Present: GCS=15, CN II-XII Intact, Speech Normal Skin: Present: Warm, Dry, Normal Color. No: Rashes Psychiatric: Present: Alert, Oriented x 3, Normal Insight, Normal Concentration Medical Decision Making ED Course and Treatment: 03/06/17 12:55 -toradol IM and percocet -xray -observe and reassess 03/06/17 15:27 -Rt. foot xray show: Normal right foot radiographs. -Pain improved with the medication given in the ER, case discussed with Dr. Gil and he agreed on the dispo and treatment plan. Pt. refused crutches and request cane. -Discharge home with naproxen, post op shoe, can, weight bearing as tolerated, epson salt, follow up with your own pmd and commercial lines assistant/physical therapist within 2 days, return to the ER for any new or worsening signs or symptoms. - RAD Interpretation Radiology Orders: 03/06/17 12:52 FOOT RIGHT 3 VIEWS ROUTINE [RAD] Stat PROCEDURE: Right Foot Radiographs. HISTORY: rt. foot sole pain x 1 week COMPARISON: None. FINDINGS: BONES: Normal. No fracture. JOINTS: Normal. SOFT TISSUES: Normal. OTHER FINDINGS: None. IMPRESSION: Normal right foot radiographs. Devil Dog: Radiologist - Medication Orders Current Medication Orders: Discontinued Medications Ketorolac Tromethamine (Toradol) 60 mg IM STAT STA Stop: 03/06/17 12:37 Last Admin: 03/06/17 13:03 Dose: 60 mg MAR Pain Assessment Document 03/06/17 13:03 EWO (Rec: 03/06/17 13:04 [facility] [id number]) Pain Reassessment Is this a pain reassessment? No Sleep Is patient sleeping during reassessment? No Presence of Pain Presence of Pain Yes Pain Scale Used Pain Scale Used Numeric Location Left, Right or Bilateral Right Pain Location Body Site Ankle Description Description Intermittent IM Administration Charges Document 03/06/17 13:03 EWO (Rec: 03/06/17 13:04 [facility] [id number]) Injection Site MAR Injection Site Left Deltoid Charges for Administration # of IM Administrations 1 Oxycodone/Acetaminophen (Percocet 5/325 Mg Tab) 1 tab PO STAT STA Stop: 03/06/17 12:37 Last Admin: 03/06/17 13:04 Dose: 1 tab MAR Pain Assessment Document 03/06/17 13:04 TIAN (Rec: 03/06/17 13:04 TIAN [id number]) Pain Reassessment Is this a pain reassessment? No Sleep Is patient sleeping during reassessment? No - PA / BPM ANALYST / Resident Statement MD/DO has reviewed & agrees with the documentation as recorded. Disposition/Present on Arrival - Present on Arrival Any Indicators Present on Arrival: No History of DVT/PE: No History of Uncontrolled Diabetes: No Urinary Catheter: No History of Decub. Ulcer: No History Surgical Site Infection Following: None - Disposition Have Diagnosis and Disposition been Completed?: Yes Diagnosis: Plantar fasciitis Disposition: HOME/ ROUTINE Disposition Time: 15:28 Patient Plan: Discharge Condition: IMPROVED Additional Instructions: Discharge home with naproxen, post op shoe, can, weight bearing as tolerated, epson salt, follow up with your own pmd and commercial lines assistant/physical therapist within 2 days, return to the ER for any new or worsening signs or symptoms. Prescriptions: Naproxen 500 mg PO BID PRN #22 tab PRN Reason: Other Referrals: Giovanni Martines DPM [Staff Provider] - Follow up with primary Forms: WORK NOTE
[2017-03-06 12:01] VITALS: TEMP 97.7
[2017-03-06] MEDS ORDERED: Oxycodone/Acetaminophen 5/325 mg Tab PO STA (12:36)
--- NOTE | 2017-03-06 14:58 | RAD ---
PROCEDURE: Right Foot Radiographs. HISTORY: rt. foot sole pain x 1 week COMPARISON: None. FINDINGS: BONES: Normal. No fracture. JOINTS: Normal. SOFT TISSUES: Normal. OTHER FINDINGS: None. IMPRESSION: Normal right foot radiographs.
[2017-03-06 16:02] VITALS: BP 138/79; PULSE 78; RESP 18; O2SAT 98
== END 2017-03-06 16:02 | disposition home or self-care (01) ==
LOC: ED 11:44
DX: M72.2 Plantar fascial fibromatosis (principal); E66.01 Morbid (severe) obesity due to excess calories; Z87.891 Personal history of nicotine dependence
CPT/HCPCS: 73630; 96372; 99283; J1885

== ENCOUNTER 2017-06-10 13:12 | Emergency (ER) | payer MEDICAID ==
[2017-06-10 13:13] VITALS: BMI 63.4
[2017-06-10] MEDS ORDERED: Oxycodone/Acetaminophen 5/325 mg Tab PO STA (14:03)
--- NOTE | 2017-06-10 14:07 | ED PDOC ---
Arrival/HPI - General Chief Complaint: Lower Extremity Problem/Injury Time Seen by Provider: 06/10/17 13:43 Historian: Patient - History of Present Illness Narrative History of Present Illness (Text): 06/10/17 14:04 26yo morbidly obese male with PMhx of Asthma, spina bifida with chronic lower back/leg pain present with complaint of sever right foot pain that radiates to his hip x 2days. States pain became worse today and he is unable to bear weight secondary to the pain. States he saw a pain management for this pain and was given the option of getting a lead implant which he is still thinking of. Notes that he does not take any pain medication at home. Denies trauma, focal weakness , urinary/fecal incontinence, any other complaint. 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) - Renal Hx Renal Disorder: No Hx Dialysis: No Hx Kidney Stones: No Hx Neurogenic Bladder: No Hx Pyelonephritis: No Hx Renal Cancer: No Hx Renal Failure: No - Endocrine/Metabolic Other/Comment: morbid obesity - Hematological/Oncological Hx Blood Disorders: No Hx AIDS: No Hx Anemia: No Hx Cancer: No Hx Chemotherapy: No Hx Cirrhosis: No Hx Hemophilia: No Hx Hepatitis A: No Hx Hepatitis B: No Hx Hepatitis C: No Hx Metastasis: No Hx Shingles: No Hx Sickle Cell Disease: No Hx Unexplained Bleeding: No - Integumentary Hx Dermatological Disorder: No Hx Basal Cell Carcinoma: No Hx Eczema: No Hx Melanoma: No Hx Psoriasis: No Hx Squamous Cell Carcinoma: No - Musculoskeletal/Rheumatological Hx Musculoskeletal Disorders: Yes Other/Comment: Spine abifida - Gastrointestinal Hx Gastrointestinal Disorders: Yes (frequently has gas pain after eating) - Genitourinary/Gynecological Hx Genitourinary Disorders: No Hx Hematuria: No Hx Incontinence: No Hx Prostate Problems: No Hx Sexually Transmitted Diseases: No Hx Urinary Tract Infection: No - Psychiatric Hx Anxiety: Yes Hx Depression: Yes Hx Substance Use: No - Past Surgical History Past Surgical History: No Previous - Surgical History Other/Comment: brain stem surgery - Anesthesia Hx Anesthesia: No Hx Anesthesia Reactions: No Hx Malignant Hyperthermia: No - Suicidal Assessment Feels Threatened In Home Enviroment: No Family/Social History - Physician Review Nursing Documentation Reviewed: Yes Family/Social History: Unknown Family HX Smoking Status: Former Smoker Hx Alcohol Use: Yes Hx Substance Use: No Hx Substance Use Treatment: No Allergies/Home Meds Allergies/Adverse Reactions: Allergies furosemide [From Lasix] Allergy (Mild, Verified 06/10/17 13:51) RASH Home Medications: Home Meds Medication Instructions Recorded Confirmed Hydroxyzine HCl 1 tab PO Q6H PRN 07/09/16 06/10/17 Metoprolol Succinate [Toprol XL] 100 mg PO DAILY 12/25/16 06/10/17 Oxycodone HCl/Acetaminophen 1 tab PO Q4 PRN 12/25/16 06/10/17 [Oxycodone-Acetaminophen 5-325] Gabapentin [Neurontin] 300 mg PO TID 06/10/17 06/10/17 tiZANidine [Zanaflex] 4 mg PO BID 06/10/17 06/10/17 Review of Systems - Physician Review All systems were reviewed & negative as marked: Yes - Review of Systems Constitutional: Normal Eyes: Normal ENT: Normal Respiratory: Normal Cardiovascular: Normal Gastrointestinal: Normal Genitourinary Male: Normal Musculoskeletal: Arthralgias (LEft leg pain), Back Pain Skin: Normal Neurological: Normal Endocrine: Normal Hemo/Lymphatic: Normal Psychiatric: Normal Physical Exam Vital Signs Reviewed: Yes Vital Signs Temp Pulse Resp BP Pulse Ox 06/10/17 19:00 98.6 F 84 16 148/70 100 06/10/17 17:11 86 18 154/72 H 98 06/10/17 15:51 80 18 141/74 99 06/10/17 13:47 84 19 155/84 H 98 Temperature: Afebrile Blood Pressure: Normal Pulse: Regular Respiratory Rate: Normal Appearance: Positive for: Well-Appearing, Non-Toxic, Comfortable Pain Distress: None Mental Status: Positive for: Alert and Oriented X 3 - Systems Exam Head: Present: Atraumatic, Normocephalic Pupils: Present: PERRL Extroacular Muscles: Present: EOMI Conjunctiva: Present: Normal Mouth: Present: Moist Mucous Membranes Neck: Present: Normal Range of Motion Respiratory/Chest: Present: Clear to Auscultation, Good Air Exchange. No: Respiratory Distress, Accessory Muscle Use Cardiovascular: Present: Regular Rate and Rhythm, Normal S1, S2. No: Murmurs Abdomen: Present: Normal Bowel Sounds. No: Tenderness, Distention, Peritoneal Signs Back: Present: Normal Inspection. No: Midline Tenderness, Paraspinal Tenderness , Pain with Leg Raise Upper Extremity: Present: Normal Inspection. No: Cyanosis, Edema Lower Extremity: Present: NORMAL PULSES, Normal ROM. No: Edema, Tenderness, Swelling Neurological: Present: GCS=15, CN II-XII Intact, Speech Normal Skin: Present: Warm, Dry, Normal Color. No: Rashes Psychiatric: Present: Alert, Oriented x 3, Normal Insight, Normal Concentration Medical Decision Making ED Course and Treatment: 06/10/17 19:48 On re evaluation pt's pain improved in ED with medications. He was DC home with Percocet and Naprosyn. Strongly advised to f/u with his pain management for pain medication. - Medication Orders Current Medication Orders: Discontinued Medications Ketorolac Tromethamine (Toradol) 60 mg IM STAT STA Stop: 06/10/17 14:04 Last Admin: 06/10/17 14:34 Dose: 60 mg MAR Pain Assessment Document 06/10/17 14:34 SF (Rec: 06/10/17 14:34 SF [id number]) Pain Reassessment Is this a pain reassessment? Yes Sleep Is patient sleeping during reassessment? No Presence of Pain Presence of Pain Yes Pain Scale Used Pain Scale Used Numeric Location Left, Right or Bilateral Bilateral Upper or Lower Lower Pain Location Body Site Back Description Description Chronic IM Administration Charges Document 06/10/17 14:34 SF (Rec: 06/10/17 14:34 SF [id number]) Injection Site MAR Injection Site Left Deltoid Charges for Administration # of IM Administrations 1 Morphine Sulfate (Morphine) 4 mg IVP STAT STA Stop: 06/10/17 17:01 Last Admin: 06/10/17 17:37 Dose: 4 mg MAR Pain Assessment Document 06/10/17 17:37 SF (Rec: 06/10/17 17:37 SF [id number]) Pain Reassessment Is this a pain reassessment? Yes Sleep Is patient sleeping during reassessment? No Presence of Pain Presence of Pain Yes Pain Scale Used Pain Scale Used Numeric Description Description Constant IVP Administration Document 06/10/17 17:37 SF (Rec: 06/10/17 17:37 SF [id number]) Charges for Administration # of IVP Administrations 1 Oxycodone/Acetaminophen (Percocet 5/325 Mg Tab) 1 tab PO STAT STA Stop: 06/10/17 14:04 Last Admin: 06/10/17 14:34 Dose: 1 tab MAR Pain Assessment Document 06/10/17 14:34 SF (Rec: 06/10/17 14:34 SF [id number]) Pain Reassessment Is this a pain reassessment? Yes Sleep Is patient sleeping during reassessment? No Presence of Pain Presence of Pain Yes Pain Scale Used Pain Scale Used Numeric Location Left, Right or Bilateral Right Pain Location Body Site Leg Description Description Chronic Disposition/Present on Arrival - Present on Arrival Any Indicators Present on Arrival: No History of DVT/PE: No History of Uncontrolled Diabetes: No Urinary Catheter: No History of Decub. Ulcer: No History Surgical Site Infection Following: None - Disposition Have Diagnosis and Disposition been Completed?: Yes Diagnosis: Leg pain, Radiculopathy Disposition: HOME/ ROUTINE Disposition Time: 19:00 Patient Plan: Discharge Condition: STABLE Discharge Instructions (ExitCare): Radiculopathy (DC) Additional Instructions: Follow up with your Pain management Return to ED for any new symptoms Prescriptions: Naproxen [Naprosyn] 500 mg PO BID #20 tab oxyCODONE/Acetaminophen [Percocet 5/325 mg Tab] 1 ea PO Q6 #6 tab Referrals: Marilin Collier MD [Primary Care Provider] - Follow up with primary Forms: [employer] (Portuguese)
[2017-06-10] MEDS ORDERED: Morphine 4 mg/ml ISec IVP STA (17:00)
[2017-06-10 19:12] VITALS: BP 148/70; PULSE 84; RESP 16; TEMP 98.6; O2SAT 100
== END 2017-06-10 19:13 | disposition home or self-care (01) ==
LOC: ED 13:12
DX: M54.10 Radiculopathy, site unspecified (principal); M79.605 Pain in left leg; E66.01 Morbid (severe) obesity due to excess calories
CPT/HCPCS: 96372; 96374; 99285; J1885; J2270

== ENCOUNTER 2017-10-20 08:35 | Emergency (ER) | payer MEDICAID ==
[2017-10-20 08:50] VITALS: BMI 65.1
--- NOTE | 2017-10-20 09:48 | ED PDOC ---
Arrival/HPI - General Chief Complaint: Chest Pain Time Seen by Provider: 10/20/17 09:20 Historian: Patient - History of Present Illness Narrative History of Present Illness (Text): 10/20/17 09:47 26 year old male presents to the Emergency department complaining of chest pain from the center to the the left side of the chest that began at approximately 07 :00 this morning. Patient also complains of abdominal pain that began at 04:00 this morning, as well as chills and mild shortness of breath. Patient denies any fever, nausea, vomiting, diarrhea, urinary symptoms, back pain, neck pain, headache, dizziness, suicidal/homicidal ideation, or any other complaints. Time/Duration: 1-3 hours Symptom Onset: Gradual Symptom Course: Unchanged Activities at Onset: Rest Context: Home Past Medical History - Provider Review Nursing Documentation Reviewed: Yes - Past History Past History: No Previous - Infectious Disease Hx of Infectious Diseases: None - Tetanus Immunization Tetanus Immunization: Unknown - Cardiac Hx Cardiac Disorders: Yes Hx Hypertension: Yes - Pulmonary Hx Respiratory Disorders: Yes Hx Asthma: Yes - Neurological Hx Neurological Disorder: No Other/Comment: spina bifida with sx repair, brain stem sx - HEENT Hx HEENT Disorder: Yes (budd neal syndrome) - Renal Hx Renal Disorder: No - Endocrine/Metabolic Hx Endocrine Disorders: Yes Other/Comment: morbid obesity - Hematological/Oncological Hx Blood Disorders: No - Integumentary Hx Dermatological Disorder: No - Musculoskeletal/Rheumatological Hx Musculoskeletal Disorders: Yes Other/Comment: Spine abifida - Gastrointestinal Hx Gastrointestinal Disorders: Yes (frequently has gas pain after eating) - Genitourinary/Gynecological Hx Genitourinary Disorders: No - Psychiatric Hx Psychophysiologic Disorder: Yes Hx Anxiety: Yes Hx Depression: Yes Hx Substance Use: No - Past Surgical History Past Surgical History: No Previous - Surgical History Other/Comment: brain stem surgery - Anesthesia Hx Anesthesia: No Hx Anesthesia Reactions: No Hx Malignant Hyperthermia: No - Suicidal Assessment Feels Threatened In Home Enviroment: No Family/Social History - Physician Review Nursing Documentation Reviewed: Yes Family/Social History: Unknown Family HX Smoking Status: Former Smoker Hx Alcohol Use: Yes Hx Substance Use: No Hx Substance Use Treatment: No Allergies/Home Meds Allergies/Adverse Reactions: Allergies furosemide [From Lasix] Allergy (Mild, Verified 06/10/17 13:51) RASH Home Medications: Home Meds Medication Instructions Recorded Confirmed Metoprolol Succinate XL [Toprol XL] 100 mg PO DAILY 12/25/16 10/20/17 Oxycodone HCl/Acetaminophen 1 tab PO Q3 12/25/16 10/20/17 [Oxycodone-Acetaminophen 5-325] Gabapentin [Neurontin] 300 mg PO TID 06/10/17 10/20/17 Review of Systems - Review of Systems Constitutional: Other (chills) Eyes: Normal ENT: Normal Respiratory: SOB Cardiovascular: Chest Pain Gastrointestinal: Abdominal Pain Genitourinary Male: Normal Musculoskeletal: Normal Skin: Normal Neurological: Normal Endocrine: Normal Hemo/Lymphatic: Normal Psychiatric: Normal Physical Exam Vital Signs Reviewed: Yes Vital Signs Temp Pulse Resp BP Pulse Ox 10/20/17 15:52 98.5 F 87 20 143/59 L 97 10/20/17 11:21 98.8 F 105 H 19 126/56 L 97 10/20/17 08:48 99.4 F 119 H 19 131/71 96 Temperature: Afebrile Blood Pressure: Normal Pulse: Tachycardic Respiratory Rate: Normal Appearance: Positive for: Non-Toxic, Comfortable, Other (obese) Pain Distress: None Mental Status: Positive for: Alert and Oriented X 3 - Systems Exam Head: Present: Atraumatic, Normocephalic Pupils: Present: PERRL Extroacular Muscles: Present: EOMI Conjunctiva: Present: Normal Mouth: Present: Moist Mucous Membranes Neck: Present: Normal Range of Motion Respiratory/Chest: Present: Clear to Auscultation, Good Air Exchange. No: Respiratory Distress, Accessory Muscle Use Cardiovascular: Present: Tachycardic. No: Murmurs Abdomen: No: Tenderness, Distention, Peritoneal Signs Back: Present: Normal Inspection Upper Extremity: Present: Normal Inspection. No: Cyanosis, Edema Lower Extremity: Present: Normal Inspection. No: Edema Neurological: Present: GCS=15, CN II-XII Intact, Speech Normal Skin: Present: Warm, Dry, Normal Color. No: Rashes Psychiatric: Present: Alert, Oriented x 3, Normal Insight, Normal Concentration Medical Decision Making ED Course and Treatment: 10/20/17 09:53 You were treated in the ED today for hx hypertension, asthma, chiari, now with chest pain today and with some difficulty breathing but otherwise without any nausea/vomiting/headache/dizziness/numbness/tingling/loss of limb function/pain with urination/thoughts to harm yourself or others or hallucinations. You were otherwise breathing easily, talking easily, good strength/sensation, walking easily, clear lungs, no abdomen tenderness, your vision was such no fever temp 99.4, elevated heart rate 119, stable breathing rate 19, excellent oxygen level 96% room air, normal blood pressure 131/71, you have blood tests no infection count 12, stable blood level hemoglobin 14/platelets 257, stable chemistry, heart blood test negative less than 0.01, heart failure negative 88, low risk of blood clot intermediate thus cta chest pending, urine test moderate leukocytes with patient clarifying having some urinary discomfort to Dr. Alonzo , radiology chest xray no active disease, ECG sinus tachycardia, aspirin, magnesium, saline, observation done in the ED. signed out to Dr. Alonzo to fu CTA chest and disposition. 10/21/17 07:37 Reassessment Condition: Re-examined, Improved - Lab Interpretations Lab Results: 10/20/17 10:06 10/20/17 10:06 Lab Results 10/20/17 10:06: Sodium 141, Potassium 3.8, Chloride 100, Carbon Dioxide 26, Anion Gap 18, BUN 11, Creatinine 0.7 L, Est GFR ( Amer) > 60, Est GFR ( Non-Af Amer) > 60, Random Glucose 110, Calcium 9.4, Magnesium 1.5 L, Total Bilirubin 1.0, AST 58, ALT 41, Alkaline Phosphatase 93, Lactate Dehydrogenase 598, Total Creatine Kinase 74, Troponin I < 0.01, NT-Pro-B Natriuret Pep 88.7, Total Protein 8.3, Albumin 4.5, Globulin 3.7, Albumin/Globulin Ratio 1.2 10/20/17 10:06: Urine Color Yellow, Urine Appearance Sl cloudy, Urine pH 6.0, Ur Specific [place] 1.010, Urine Protein Negative, Urine Glucose (UA) Negative, Urine Ketones Negative, Urine Blood Negative, Urine Nitrate Negative, Urine Bilirubin Negative, Urine Urobilinogen 0.2, Ur Leukocyte Esterase Moderate H, Urine RBC 0 - 2, Urine WBC 10 - 15, Ur Epithelial Cells 0 - 2, Urine Bacteria Many 10/20/17 10:06: PT 13.4 H, INR 1.16 H, APTT 32.7, D-Dimer, Quantitative 257 H 10/20/17 10:06: WBC 12.3 H D, RBC 4.93, Hgb 14.3 D, Hct 40.9 L, MCV 83.0 D, MCH 29.0, MCHC 35.0, RDW 13.3, Plt Count 257, MPV 10.1, Gran % 90.5 H, Lymph % ( Auto) 4.9 L, [place] % (Auto) 4.2, Eos % (Auto) 0.3 L, Baso % (Auto) 0.1, Gran # 11.08 H, Lymph # (Auto) 0.6 L, [place] # (Auto) 0.5, Eos # (Auto) 0.0, Baso # (Auto ) 0.01, Neutrophils % (Manual) 85 H, Band Neutrophils % 5 H, Lymphocytes % ( Manual) 5 L, Monocytes % (Manual) 5, Platelet Evaluation Normal, Large Platelets Present I have reviewed the lab results: Yes - RAD Interpretation Narrative RAD Interpretations (Text): 10/20/2017 10:54:10 Chest Xray FINDINGS: LUNGS: No active pulmonary disease. PLEURA: Minimal elevation of right hemidiaphragm, nonspecific. No pleural effusion or pneumothorax. CARDIOVASCULAR: Normal. OSSEOUS STRUCTURES: No significant abnormalities. VISUALIZED UPPER ABDOMEN: Normal. OTHER FINDINGS: None. IMPRESSION: No active disease. Radiology Orders: 10/20/17 09:27 CHEST PORTABLE [RAD] Stat 10/20/17 12:28 LUNG PERF & VENT SCAN [NM] Stat Rug Clipper: Radiologist (see mdm ) - EKG Interpretation EKG Interpretation (Text): 10/20/17 09:53 EKG: Ordered, reviewed, and independently interpreted the EKG. Rate : 120 BPM Rhythm : Sinus tachycardia Interpretation : Nonspecific T-wave abnormalities. Interpreted by ED Physician: Yes Type: 12 lead EKG - Medication Orders Current Medication Orders: Discontinued Medications Aspirin (Aspirin) 325 mg PO STAT STA Stop: 10/20/17 09:28 Last Admin: 10/20/17 10:06 Dose: 325 mg Sodium Chloride (Sodium Chloride 0.9%) 1,000 mls @ 999 mls/hr IV .Q1H1M STA Stop: 10/20/17 12:36 Last Admin: 10/20/17 12:19 Dose: 999 mls/hr eMAR Start Stop Document 10/20/17 12:19 OCS (Rec: 10/20/17 12:19 OCS [id number]) Intravenous Solution Start Date 10/20/17 Start Time 12:19 End Date 10/20/17 End time 13:20 Total Infusion Time 61 Magnesium Sulfate/Dextrose (Magnesium Sulfate 1 Gm/100 Ml D5w) 1 gm in 100 mls @ 100 mls/hr IVPB ONCE ONE Stop: 10/20/17 12:37 Last Admin: 10/20/17 12:19 Dose: 100 mls/hr eMAR Start Stop Document 10/20/17 12:19 OCS (Rec: 10/20/17 12:19 OCS [id number]) Intravenous Solution Start Date 10/20/17 Start Time 12:19 End Date 10/20/17 End time 13:19 Total Infusion Time 60 Ceftriaxone Sodium (Rocephin 1 Gram Ivpb) 1 gm in 100 mls @ 200 mls/hr IVPB STAT STA PRN Reason: Protocol Stop: 10/20/17 13:22 Last Admin: 10/20/17 13:24 Dose: 200 mls/hr eMAR Start Stop Document 10/20/17 13:24 OCS (Rec: 10/20/17 13:25 OCS [id number]) Intravenous Solution Start Date 10/20/17 Start Time 13:24 End Date 10/20/17 End time 13:54 Total Infusion Time 30 Disposition/Present on Arrival - Present on Arrival Any Indicators Present on Arrival: Yes History of DVT/PE: No History of Uncontrolled Diabetes: No Urinary Catheter: No History of Decub. Ulcer: No History Surgical Site Infection Following: None - Disposition Have Diagnosis and Disposition been Completed?: Yes Diagnosis: Chest pain, Dehydration, UTI (urinary tract infection) Disposition: HOME/ ROUTINE Disposition Time: 07:40 Patient Plan: Discharge Condition: IMPROVED Discharge Instructions (ExitCare): Urinary Tract Infections in Adults, Chest Pain (ED) Additional Instructions: GISELLE LAMAR, thank you for letting us take care of you today. Your provider was Arun Alonzo DO and you were treated for CHEST PAIN, UTI, DEHYDRATION. The emergency medical care you received today was directed at your acute symptoms. If you were prescribed any medication, please fill it and take as directed. It may take several days for your symptoms to resolve. Return to the Emergency Department if your symptoms worsen, do not improve, or if you have any other problems. Please contact your doctor or call one of the physicians/clinics you have been referred to that are listed on the Patient Visit Information form that is included in your discharge packet. Bring any paperwork you were given at discharge with you along with any medications you are taking to your follow up visit. Our treatment cannot replace ongoing medical care by a primary care provider outside of the emergency department. Thank you for allowing the [facility] team to be part of your care today. If you had an X-Ray or CT scan: A Radiologist will review the ED reading if any change in treatment is needed we will contact you. If you had a blood, urine, or wound culture: It will take several days for the results, if any change in treatment is needed we will contact you. If you had an STI test: It will take 48 hours for the results. Please call after 1 week if you have not heard back. Prescriptions: Acetaminophen [Tylenol 325mg tab] 650 mg PO Q4 #60 tab Cephalexin [Keflex] 500 mg PO BID #14 capsule Referrals: Marilin Collier MD [Family Provider] - Follow up with primary Forms: [employer] (Portuguese), WORK NOTE
[2017-10-20 10:17] LABS: BASO # 0.01 K/mm3 (0.0-2.0); BASO % 0.1 % (0.0-3.0); EOS % 0.3 % (1.5-5.0); GRAN # 11.08 (1.4-6.5); GRAN % 90.5 % (50.0-68.0); HEMOGLOBIN 14.3 g/dL (14.0-18.0); LYMPH # 0.6 (1.2-3.4); LYMPH % 4.9 % (22.0-35.0); MEAN PLATELET VOLUME 10.1 fl (7.0-11.0); MONO # 0.5 (0.1-0.6); MONO % 4.2 % (1.0-6.0); PLATELET COUNT 257 10^3/uL (120.0-450.0); RBC 4.93 10^6/uL (3.5-6.1); RED CELL DISTRIBUTION WIDTH 13.3 % (11.5-14.5); URINE BILIRUBIN NEGATIVE (NEGATIVE); URINE BLOOD NEGATIVE (NEGATIVE); URINE GLUCOSE (UA) NEGATIVE (NEGATIVE); URINE LEUKOCYTE ESTERASE MODERATE Leu/uL (NEGATIVE); URINE PROTEIN NEGATIVE mg/dL (<30 mg/dL); URINE UROBILINOGEN 0.2 E.U./dL (<1 E.U./dL); WHITE BLOOD COUNT 12.3 10^3/ul (4.5-11.0)
[2017-10-20 10:28] LABS: ALB/GLOB RATIO 1.2 (1.1-1.8); ALBUMIN 4.5 g/dL (3.0-4.8); ALT/SGPT 41 U/L (7-56); AST/SGOT 58 U/L (17-59); BLOOD UREA NITROGEN 11 mg/dL (7-21); CALCIUM 9.4 mg/dL (8.4-10.5); GFR AFRICAN-AMERICAN > 60; GFR NON-AFRICAN AMERICAN > 60
[2017-10-20 10:37] LABS: INR 1.16 (0.93-1.08); PARTIAL THROMBOPLASTIN TIME 32.7 Seconds (25.1-36.5); PROTHROMBIN TIME 13.4 SECONDS (9.4-12.5)
[2017-10-20 10:39] LABS: B-TYPE NATRIURETIC PEPTIDE 88.7 pg/mL (0-450); TROPONIN I < 0.01 ng/mL
[2017-10-20 10:42] LABS: URINE APPEARANCE SL CLOUDY (CLEAR); URINE COLOR YELLOW (YELLOW)
[2017-10-20 10:44] LABS: BAND 5 % (0-2); LARGE PLATELETS PRESENT; LYMPHOCYTE 5 % (22.0-35.0); MONOCYTE 5 % (1.0-6.0); NEUTROPHIL 85 % (50.0-70.0); PLATELET ESTIMATE NORMAL (NORMAL)
[2017-10-20 10:46] LABS: URINE BACTERIA MANY (NEG); URINE EPITHELIAL CELLS 0 - 2 /hpf (0-5); URINE RBC 0 - 2 /hpf (0-2)
--- NOTE | 2017-10-20 10:55 | RAD ---
HISTORY: 26yoM, chest pain COMPARISON: 10/16/2016 FINDINGS: LUNGS: No active pulmonary disease. PLEURA: Minimal elevation of right hemidiaphragm, nonspecific. No pleural effusion or pneumothorax. CARDIOVASCULAR: Normal. OSSEOUS STRUCTURES: No significant abnormalities. VISUALIZED UPPER ABDOMEN: Normal. OTHER FINDINGS: None. IMPRESSION: No active disease.
[2017-10-20 11:27] VITALS: O2SAT 97
[2017-10-20] MEDS ORDERED: Sodium Chloride 0.9% 1,000 ML IV STA (11:36)
[2017-10-20] MEDS ORDERED: Magnesium Sulfate 1 gm in D5W 1 GM/100 ML BAG IVPB ONE (11:38)
[2017-10-20] MEDS ORDERED: Iohexol 350 MG/100 ML VIAL ONE (12:06)
--- NOTE | 2017-10-20 12:39 | ED PDOC ---
Physical Exam Vital Signs Reviewed: Yes Vital Signs Temp Pulse Resp BP Pulse Ox 10/20/17 11:21 98.8 F 105 H 19 126/56 L 97 10/20/17 08:48 99.4 F 119 H 19 131/71 96 Temperature: Afebrile Blood Pressure: Normal Pulse: Tachycardic Respiratory Rate: Normal Appearance: Positive for: Well-Appearing, Non-Toxic, Comfortable Pain Distress: None Mental Status: Positive for: Alert and Oriented X 3 - Systems Exam Respiratory/Chest: Present: Clear to Auscultation, Good Air Exchange. No: Respiratory Distress, Accessory Muscle Use, Wheezes, Decreased Breath Sounds Lower Extremity: No: Edema, Swelling Medical Decision Making ED Course and Treatment: 10/20/17 12:38 Patient signed out to me by Dr. Clinton at this time. Patient's labs were abnormal while in the Emergency department. Pending VQ study. Will treat for UTI , reevaluate, and disposition. 10/20/17 12:51 Additional history provided to me by the patient at this time. This morning, the patient experienced a couple episodes of loose brown stool. The patient then had chills and thinks he may have had a possible fever. The patient then went back to sleep and woke up with left sided chest pain. Patient is also complaining of urinary symptoms, including burning with urination and frequency. Patient denies leg swelling. 10/20/17 15:52 Accession No. : [id number] Patient Name / ID : WILLARD PABLO / [id number] IMPRESSION: Lowprobability ventilation perfusion scan for pulmonary embolism. Patient is feeling much better after hydration. He received Rocephin IV and IVF. He has a negative V/Q can; low probability. Considering his UTI symptoms and Dehydration clinical presentation this is not a PE but most likely infectious in nature. He was given Rx Keflex and Tylenol. He will f/u with his Primary care doctor. He was advised to return to the ED if any symptoms worsen or any other concerns. He understands the importance of follow up. - Lab Interpretations Lab Results: 10/20/17 10:06 10/20/17 10:06 Lab Results 10/20/17 10:06: Sodium 141, Potassium 3.8, Chloride 100, Carbon Dioxide 26, Anion Gap 18, BUN 11, Creatinine 0.7 L, Est GFR ( Amer) > 60, Est GFR ( Non-Af Amer) > 60, Random Glucose 110, Calcium 9.4, Magnesium 1.5 L, Total Bilirubin 1.0, AST 58, ALT 41, Alkaline Phosphatase 93, Lactate Dehydrogenase 598, Total Creatine Kinase 74, Troponin I < 0.01, NT-Pro-B Natriuret Pep 88.7, Total Protein 8.3, Albumin 4.5, Globulin 3.7, Albumin/Globulin Ratio 1.2 10/20/17 10:06: Urine Color Yellow, Urine Appearance Sl cloudy, Urine pH 6.0, Ur Specific [place] 1.010, Urine Protein Negative, Urine Glucose (UA) Negative, Urine Ketones Negative, Urine Blood Negative, Urine Nitrate Negative, Urine Bilirubin Negative, Urine Urobilinogen 0.2, Ur Leukocyte Esterase Moderate H, Urine RBC 0 - 2, Urine WBC 10 - 15, Ur Epithelial Cells 0 - 2, Urine Bacteria Many 10/20/17 10:06: PT 13.4 H, INR 1.16 H, APTT 32.7, D-Dimer, Quantitative 257 H 10/20/17 10:06: WBC 12.3 H D, RBC 4.93, Hgb 14.3 D, Hct 40.9 L, MCV 83.0 D, MCH 29.0, MCHC 35.0, RDW 13.3, Plt Count 257, MPV 10.1, Gran % 90.5 H, Lymph % ( Auto) 4.9 L, [place] % (Auto) 4.2, Eos % (Auto) 0.3 L, Baso % (Auto) 0.1, Gran # 11.08 H, Lymph # (Auto) 0.6 L, [place] # (Auto) 0.5, Eos # (Auto) 0.0, Baso # (Auto ) 0.01, Neutrophils % (Manual) 85 H, Band Neutrophils % 5 H, Lymphocytes % ( Manual) 5 L, Monocytes % (Manual) 5, Platelet Evaluation Normal, Large Platelets Present - RAD Interpretation Radiology Orders: 10/20/17 09:27 CHEST PORTABLE [RAD] Stat 10/20/17 12:28 LUNG PERF & VENT SCAN [NM] Stat - Medication Orders Current Medication Orders: Discontinued Medications Aspirin (Aspirin) 325 mg PO STAT STA Stop: 06/28/18 09:28 Last Admin: 10/20/17 10:06 Dose: 325 mg Cephalexin Monohydrate (Keflex) 500 mg PO STAT STA PRN Reason: Protocol Stop: 10/20/17 12:31 Sodium Chloride (Sodium Chloride 0.9%) 1,000 mls @ 999 mls/hr IV .Q1H1M STA Stop: 10/20/17 12:36 Last Admin: 10/20/17 12:19 Dose: 999 mls/hr eMAR Start Stop Document 10/20/17 12:19 OCS (Rec: 10/20/17 12:19 OCS [id number]) Intravenous Solution Start Date 10/20/17 Start Time 12:19 End Date 10/20/17 End time 13:20 Total Infusion Time 61 Magnesium Sulfate/Dextrose (Magnesium Sulfate 1 Gm/100 Ml D5w) 1 gm in 100 mls @ 100 mls/hr IVPB ONCE ONE Stop: 10/20/17 12:37 Last Admin: 10/20/17 12:19 Dose: 100 mls/hr eMAR Start Stop Document 10/20/17 12:19 OCS (Rec: 10/20/17 12:19 OCS [id number]) Intravenous Solution Start Date 10/20/17 Start Time 12:19 End Date 10/20/17 End time 13:19 Total Infusion Time 60 - Scribe Statement The provider has reviewed the documentation as recorded by the Yovani Blackwell Provider Scribe Attestation: All medical record entries made by the Scribe were at my direction and personally dictated by me. I have reviewed the chart and agree that the record accurately reflects my personal performance of the history, physical exam, medical decision making, and the department course for this patient. I have also personally directed, reviewed, and agree with the discharge instructions and disposition. Disposition/Present on Arrival - Present on Arrival Any Indicators Present on Arrival: No History of DVT/PE: No History of Uncontrolled Diabetes: No Urinary Catheter: No History of Decub. Ulcer: No History Surgical Site Infection Following: None - Disposition Have Diagnosis and Disposition been Completed?: Yes Diagnosis: Chest pain, Dehydration, UTI (urinary tract infection) Disposition: HOME/ ROUTINE Disposition Time: 15:45 Patient Plan: Discharge Condition: IMPROVED Discharge Instructions (ExitCare): Urinary Tract Infections in Adults, Chest Pain (ED) Additional Instructions: GISELLE LAMAR, thank you for letting us take care of you today. Your provider was Arun Alonzo DO and you were treated for CHEST PAIN, UTI, DEHYDRATION. The emergency medical care you received today was directed at your acute symptoms. If you were prescribed any medication, please fill it and take as directed. It may take several days for your symptoms to resolve. Return to the Emergency Department if your symptoms worsen, do not improve, or if you have any other problems. Please contact your doctor or call one of the physicians/clinics you have been referred to that are listed on the Patient Visit Information form that is included in your discharge packet. Bring any paperwork you were given at discharge with you along with any medications you are taking to your follow up visit. Our treatment cannot replace ongoing medical care by a primary care provider outside of the emergency department. Thank you for allowing the [facility] team to be part of your care today. If you had an X-Ray or CT scan: A Radiologist will review the ED reading if any change in treatment is needed we will contact you. If you had a blood, urine, or wound culture: It will take several days for the results, if any change in treatment is needed we will contact you. If you had an STI test: It will take 48 hours for the results. Please call after 1 week if you have not heard back. Prescriptions: Acetaminophen [Tylenol 325mg tab] 650 mg PO Q4 #60 tab Cephalexin [Keflex] 500 mg PO BID #14 capsule Referrals: Marilin Collier MD [Family Provider] - Follow up with primary Forms: [employer] (Czech), WORK NOTE
[2017-10-20] MEDS ORDERED: cefTRIAXone 1 gm 1 GM/100 ML BAG IVPB STA (12:53)
--- NOTE | 2017-10-20 15:29 | NM ---
COMPARISON: None available TECHNIQUE: 30.2 mCi technetium 99-m DTPA aerosol. 4.75 mCI technetium 99-m MAA administered intravenously. FINDINGS: VENTILATION COMPONENT: Normal. PERFUSION COMPONENT: Normal. IMPRESSION: Lowprobability ventilation perfusion scan for pulmonary embolism.
[2017-10-20 15:54] VITALS: BP 143/59; PULSE 87; RESP 20; TEMP 98.5
--- NOTE | 2017-10-20 22:13 | CARD ---
APPROVED REPORT EKG Measurement Heart [id number] <Conclusion> Sinus tachycardia Nonspecific T wave abnormality Abnormal ECG
== END 2017-10-20 15:52 | disposition home or self-care (01) ==
LOC: ED 08:35
DX: E86.0 Dehydration (principal); R07.9 Chest pain, unspecified; N39.0 Urinary tract infection, site not specified; I10 Essential (primary) hypertension; J45.909 Unspecified asthma, uncomplicated; Z87.891 Personal history of nicotine dependence
CPT/HCPCS: 71045; 78582; 80053; 81001; 82550; 83615; 83735; 83880; 84484; 85025; 85378; 85610; 85730; 87040; 87086; 93005; 96365; 96367; 99283; J0696; J3475; J7030

== ENCOUNTER 2018-05-10 07:33 | Outpatient (CLI) | payer MEDICAID | END 2018-05-11 07:34 | disposition home or self-care (01) | LOC: CARDIO 07:33 | DX: E66.01 Morbid (severe) obesity due to excess calories (principal); I10 Essential (primary) hypertension; Z68.44 Body mass index [BMI] 60.0-69.9, adult; R20.2 Paresthesia of skin ==

== ENCOUNTER 2018-08-14 09:46 | Emergency (ER) | payer MEDICAID ==
--- NOTE | 2018-08-14 09:55 | ED PDOC ---
Arrival/HPI - History of Present Illness Narrative History of Present Illness (Text): 08/14/18 09:53 Patient is a 27 year old male with past medical history of morbid obesity, chiari malformation, spina bifida s/p surgical repair, hypertension, asthma, and anxiety presenting with chief complaint of left leg pain. Pain is sharp, burning and extends from his toes to mid leg. Patient ambulates with walker at baseline. Denies any trauma or heavy lifting. Denies fevers, chills, chest pain, nausea, vomiting, abdominal pain, diarrhea, dysuria. Time/Duration: 24 hours Symptom Onset: Sudden Symptom Course: Unchanged Activities at Onset: Rest <Ryan Jarquin - Last Filed: 08/14/18 12:43> Past Medical History - Provider Review Nursing Documentation Reviewed: Yes - Past History Past History: No Previous - Infectious Disease Hx of Infectious Diseases: None - Tetanus Immunization Tetanus Immunization: Unknown - Cardiac Hx Hypertension: Yes - Pulmonary Hx Respiratory Disorders: Yes Hx Asthma: Yes - Neurological Hx Neurological Disorder: No Other/Comment: spina bifida with sx repair, brain stem sx - HEENT Hx HEENT Disorder: Yes (budd neal syndrome) - Renal Hx Renal Disorder: No - Endocrine/Metabolic Hx Endocrine Disorders: Yes Other/Comment: morbid obesity - Hematological/Oncological Hx Blood Disorders: No - Integumentary Hx Dermatological Disorder: No - Musculoskeletal/Rheumatological Hx Musculoskeletal Disorders: Yes Other/Comment: Spine abifida - Gastrointestinal Hx Gastrointestinal Disorders: Yes (frequently has gas pain after eating) - Genitourinary/Gynecological Hx Genitourinary Disorders: No - Psychiatric Hx Psychophysiologic Disorder: Yes Hx Anxiety: Yes Hx Depression: Yes Hx Substance Use: No - Past Surgical History Past Surgical History: No Previous - Surgical History Other/Comment: brain stem surgery - Anesthesia Hx Anesthesia: No Hx Anesthesia Reactions: No Hx Malignant Hyperthermia: No - Suicidal Assessment Feels Threatened In Home Enviroment: No <Ryan Jarquin - Last Filed: 08/14/18 12:43> - Provider Review Primary Care Physician: Marilin Collier MD <Olegario Barclay - Last Filed: 08/14/18 18:19> Family/Social History - Physician Review Nursing Documentation Reviewed: Yes Family/Social History: No Known Family HX Smoking Status: Former Smoker Hx Alcohol Use: Yes Hx Substance Use: No Hx Substance Use Treatment: No <Ryan Jarquin - Last Filed: 08/14/18 12:43> Allergies/Home Meds <Leydi Jarquinrobert [place] - Last Filed: 08/14/18 12:43> <Olegairo Barclay - Last Filed: 08/14/18 18:19> Allergies/Adverse Reactions: Allergies furosemide [From Lasix] Allergy (Mild, Verified 06/10/17 13:51) RASH Home Medications: Home Meds Medication Instructions Recorded Confirmed Metoprolol Succinate XL [Toprol XL] 100 mg PO DAILY 12/25/16 05/10/18 Oxycodone HCl/Acetaminophen 15 mg PO Q3 12/25/16 05/10/18 [Oxycodone-Acetaminophen 5-325] Gabapentin [Neurontin] 300 mg PO TID 06/10/17 05/10/18 Clonazepam [Klonopin] 0.5 mg PO BID 05/10/18 05/10/18 Dextroamphetamine/Amphetamine 30 mg PO DAILY 05/10/18 05/10/18 [Adderall 30 mg Tablet] Review of Systems - Physician Review All systems were reviewed & negative as marked: Yes - Review of Systems Respiratory: Normal Cardiovascular: Normal Gastrointestinal: Normal Musculoskeletal: Other (left leg pain) <Leydi Jarquinrobert [place] - Last Filed: 08/14/18 12:43> Physical Exam Vital Signs Reviewed: Yes Temperature: Afebrile Blood Pressure: Normal Pulse: Regular Respiratory Rate: Normal Appearance: Positive for: Non-Toxic Pain Distress: Mild Mental Status: Positive for: Alert and Oriented X 3 - Systems Exam Head: Present: Atraumatic, Normocephalic Pupils: Present: PERRL Extroacular Muscles: Present: EOMI Conjunctiva: Present: Normal Respiratory/Chest: Present: Clear to Auscultation, Good Air Exchange. No: Respiratory Distress, Accessory Muscle Use Cardiovascular: Present: Regular Rate and Rhythm, Normal S1, S2. No: Tachycardic Abdomen: Present: Normal Bowel Sounds. No: Tenderness, Distention Lower Extremity: Present: Tenderness. No: Erythema, Temperature Abnormalties Neurological: Present: GCS=15, CN II-XII Intact, Speech Normal Skin: Present: Warm, Dry, Normal Color Psychiatric: Present: Alert, Oriented x 3 <Leydi Jarquinrobert L - Last Filed: 08/14/18 12:43> Vital Signs Temp Pulse Resp BP Pulse Ox 08/14/18 10:01 97.6 F 84 20 113/57 L 99 <Olegario Barclay - Last Filed: 08/14/18 18:19> Medical Decision Making ED Course and Treatment: 08/14/18 09:54 Impression: 27 year old male with left leg pain Plan: - ankle x-ray - venous doppler - toradol - Reassess and disposition Prior Visits: Notes and results from previous visits were reviewed. Progress Notes: 08/14/18 10:33 Labs and imaging reviewed. Patient reports improvement of symptoms. Patient hemodynamically stable, optimized for discharge and follow up with primary medical doctor. <Ryan Jarquin - Last Filed: 08/14/18 12:43> ED Course and Treatment: 08/14/18 12:08 Lower extremity ultrasound reviewed by radiologist, shows: The visualized deep venous system of the left lower extremity is sonographically normal and compressible. Normal wave forms and augmentation are seen. There is no sonographic evidence for deep venous thrombosis in the visualized segments of the left lower extremity. IMPRESSION: 1. No sonographic evidence for deep venous thrombosis in the visualized segments of the left lower extremity. Ankle X-ray reviewed by radiologist, shows: BONES: Normal. No fracture. JOINTS: Mild widening of the medial ankle mortise. Talar dome intact SOFT TISSUES: [id number] soft tissue swelling. OTHER FINDINGS: None. IMPRESSION: No evidence of acute fracture. Mild widening of the medial ankle mortise. [id number] soft tissue swelling. 08/14/18 18:18 foot ankle pain. seen with resident. neg dvt. (+)pulses foot warm, xr neg. on chronic opiates at baseline. pain meds given. return precautiosn advised. - RAD Interpretation Radiology Orders: 08/14/18 10:29 ANKLE LEFT 3 VIEWS ROUTINE [RAD] Stat DUPLEX LOWER EXTRM VEIN LEFT [US] Stat - Medication Orders Current Medication Orders: Discontinued Medications Ketorolac Tromethamine (Toradol) 30 mg IM STAT STA Stop: 08/14/18 10:30 Last Admin: 08/14/18 10:39 Dose: 30 mg MAR Pain Assessment Document 08/14/18 10:39 CD (Rec: 08/14/18 10:40 CD [facility] [id number]) Pain Reassessment Is this a pain reassessment? No Sleep Is patient sleeping during reassessment? No Presence of Pain Presence of Pain Yes Pain Scale Used Protocol: PSCALES Pain Scale Used Numeric Location Left, Right or Bilateral Left Pain Location Body Site Ankle Description Intensity of Pain at present 10 Pain Behavior Moaning Crying Aggravating Factors Changing Position Alleviating Factors/Management Inactivity Techniques IM Administration Charges Document 08/14/18 10:39 CD (Rec: 08/14/18 10:40 CD [facility] [id number]) Injection Site MAR Injection Site Right Gluteus Franco Charges for Administration # of IM Administrations 1 <Olegario Barclay - Last Filed: 08/14/18 18:19> - PA / DOCUMENT MANAGER / Resident Statement / has reviewed & agrees with the documentation as recorded. DEEPA has examined the patient and agrees with the treatment plan. <Olegario Barclay - Last Filed: 08/14/18 18:19> Disposition/Present on Arrival - Present on Arrival Any Indicators Present on Arrival: No History of DVT/PE: No History of Uncontrolled Diabetes: No Urinary Catheter: No History Surgical Site Infection Following: None - Disposition Have Diagnosis and Disposition been Completed?: Yes Disposition Time: 12:15 <Ryan Jarquin - Last Filed: 08/14/18 12:43> <Olegario Barclay - Last Filed: 08/14/18 18:19> - Disposition Diagnosis: Ankle pain Disposition: HOME/ ROUTINE Condition: STABLE Discharge Instructions (ExitCare): Ankle Sprain (DC), Chest Pain (ED) Additional Instructions: Follow up with your primary medical doctor within one week Return to ED if symptoms persist or worsen Prescriptions: Naproxen 500 mg PO BID PRN #14 tablet PRN Reason: Pain, Mild (1-3) Referrals: Marilin Collier MD [Primary Care Provider] - Follow up with primary Forms: [employer] (Niuean)
[2018-08-14 10:02] VITALS: BP 113/57; PULSE 84; RESP 20; TEMP 97.6; O2SAT 99
[2018-08-14 10:05] VITALS: BMI 56.0
--- NOTE | 2018-08-14 11:45 | RAD ---
Date of service: 08/14/2018 PROCEDURE: Left Ankle Radiographs. HISTORY: ankle pain COMPARISON: None available. TECHNIQUE: 3 views obtained. FINDINGS: BONES: Normal. No fracture. JOINTS: Mild widening of the medial ankle mortise. Talar dome intact SOFT TISSUES: [id number] soft tissue swelling. OTHER FINDINGS: None. IMPRESSION: No evidence of acute fracture. Mild widening of the medial ankle mortise. [id number] soft tissue swelling.
--- NOTE | 2018-08-14 12:03 | US ---
PROCEDURE: Left lower extremity venous US HISTORY: Leg pain and swelling. Evaluate for DVT. PHYSICIAN(S): Giovanni Yu MD. TECHNIQUE: Duplex sonography and color-flow Doppler with graded compression were used to evaluate the deep venous system of the left lower extremity. FINDINGS: The visualized deep venous system of the left lower extremity is sonographically normal and compressible. Normal wave forms and augmentation are seen. There is no sonographic evidence for deep venous thrombosis in the visualized segments of the left lower extremity. IMPRESSION: 1. No sonographic evidence for deep venous thrombosis in the visualized segments of the left lower extremity.
== END 2018-08-14 12:18 | disposition home or self-care (01) ==
LOC: ED 09:46
DX: M25.572 Pain in left ankle and joints of left foot (principal); I10 Essential (primary) hypertension; E66.01 Morbid (severe) obesity due to excess calories
CPT/HCPCS: 73610; 93971; 96372; 99283; J1885